=== PATIENT | male | born 2005 ===

== ENCOUNTER 2025-02-13 20:11 | Inpatient (IN) | payer OTHER, SELFPAY ==
[2025-02-13] VITALS (14 sets, daily range): BP systolic 90–127; BP diastolic 33–70; PULSE 54–122; RESP 16–20; TEMP 36.8; O2SAT 96–100; BMI 21.5
--- NOTE | 2025-02-13 20:12 | ED_ITS ---
HPI - Psych General Chief Complaint: Psychiatric Symptoms Stated Complaint: section 12, combative, restrained Time Seen by Provider: 02/13/25 20:11 History of Present Illness ED Provider: Laureano Dodson MD HPI Narrative: Alexys is brought in by EMS and [employer] police. They were sent to the house by outpatient behavioral health organization who called them concern and filing section 12 for ? Erratic or psychotic behavior. Patient was picked up at home where his mother was present. He was not violent but the officer who brought him in described him as ?blank stare?. Occasionally mumbling unintelligibly. Not cooperative but not Related Data Home Medications ?Medication ?Instructions ?Recorded ?Confirmed No Known Home Meds 02/14/25 02/14/25 Allergies Allergy/AdvReac Type Severity Reaction Status Date / Time Unable to Assess Allergy Verified 02/13/25 20:31 [facility] Social History Social History Household Members: Family Housing: House Do you presently have visiting nurse or other home services: No Unable to assess alcohol history related to: Unknown Patient Tobacco Use Status: Never used Tobacco Use of substances other than those prescribed or required for medical reasons: Unknown Currently Displaying Signs/Symptoms of Drug Intoxication Withdrawal: No Have you been hit, kicked, punched, or otherwise hurt by someone within the past year? If so, by whom?: No Do you feel safe in your current relationship?: No Current Relationship Is there a partner from a previous relationship who is making you feel unsafe now?: No Are you made to feel afraid or neglected: No Spiritual Healthcare Practices: denies Taoist Healthcare Practices: denies Cultural Healthcare Practices: denies Advance Directives: No Advance Directives Information Provided: No Do you have thoughts of harming others: None Do you have a plan to hurt others: No Plan Recently lost weight without trying: No How much weight loss: Unsure Eating poorly because of decreased appetite: No Nutrition screen score: 2 Nutrition Risks: No Nutritional Risk Poor oral hygiene: No Physical Exam 2 Vital Signs: Vital Signs: Last Vital Signs Temp 97.8 F 02/14/25 16:37 Pulse 87 02/14/25 16:37 Resp 16 02/14/25 16:37 BP 132/84 02/14/25 16:37 Pulse Ox 99 02/14/25 16:37 O2 Del Method Room Air 02/14/25 16:37 BMI result Body Mass Index 21.5 Const: Other: EXAM: Gen: Alert, awake, well appearing, well hydrated. You makes eye contact and occasionally responds appropriately to verbal stimuli with brief answers seems evasive. Sometimes laughing to himself or answering inappropriately to my questions or commands. On arrival he was not cooperating with instruction to sit back in the bed he appeared internally preoccupied . Although not physically threatening to staff his somewhat erratic behavior had us concerned Head: Atraumatic Eyes: Anicteric, Normal conjunctiva. ENT: Moist mucosa, no pallor. ? Neck: Supple. Respiratory: Breathing comfortably, No distress.Clear to auscultation bilaterally, symmetric chest expansion, No wheeze, rales, ronchi. Cardiovascular: Regular rate and rhythm. No murmurs or rub. Well perfused periphery, warm extremities. No edema. ? Abdominal: No FOCAL TENDERNESS. Soft, no objective distension. No palpable masses or obvious organomegaly. ?No guarding, no rebound tenderness or other peritoneal findings. : No flank tenderness. Neuro: Alert. Gross movement of all extremities intact. ? Psych: Calm. Uncooperative. Mumbling occasionally responding to internal stimuli laughing inappropriately. ?I started smoking ?initially says it was cigarette later nods that he has been smoking marijuana. Says ?I have been staying in my room?. We will not answer any further questioning. MSK: No grossly visible deformity. Vital signs: See flowsheet Medications Administered Generic Name Dose Route Start Last Admin Trade Name Freq PRN Reason Stop Dose Admin Lorazepam 1 mg 02/14/25 12:35 02/14/25 21:12 Lorazepam 1 Mg Tablet PO 1 mg TID SALVATORE Administration Olanzapine 5 mg 02/14/25 12:30 02/14/25 21:12 Olanzapine 5 Mg Tablet PO 5 mg TID PRN Administration agitation Discontinued Medications Generic Name Dose Route Start Last Admin Trade Name Freq PRN Reason Stop Dose Admin Midazolam HCl 4 mg 02/13/25 20:19 02/13/25 20:40 Midazolam Hcl 2 Mg/2 Ml Vial IM 02/13/25 20:20 4 mg ONCE ONE Administration Olanzapine 5 mg 02/13/25 20:19 02/13/25 20:41 Olanzapine 10 Mg Vial IM 02/13/25 20:20 5 mg ONCE ONE Administration Medical Decision Making Medical Decision Making MDM Narrative: [age] male brought on section 12 for erratic behavior questioned psychosis from outpatient mental health providers. Mother added additional history to the nursing staff, she said over the past weeks he has been having fluctuating and erratic behavior that is new for him. He was jailed recently for alleged physical assault of his sister which is unusual for him. He has been acting erratic and sometimes staying many hours in his room alone which is also unusual for him. [facility] outpatient behavioral health team called police to pick him up and bring him here on section 12 for possible acute psychosis concern for possible self-harm or harm to others. Differential Diagnosis Differential Diagnoses: The differential diagnosis associated with the presentation includes Psychosis, drug induced psychosis, adjustment disorder, mood disorder, substance use disorder, less likely encephalopathy/meningitis/encephalitis Admission/Observation Consideration of admission/observation: Escalation of care including admission/observation considered Lab Data 02/13/25 21:19 02/13/25 21:19 Labs: Lab Results 02/13/25 02/13/25 Range/Units 21:19 21:32 WBC 8.3 (4.8-10.8) X10*3/uL RBC 4.06 L (4.60-5.80) X10*6/uL Hgb 12.2 L (14.0-18.0) g/dl Hct 36.2 L (42.0-52.0) % MCV 89.2 (80.0-98.0) fL MCH 30.0 (27.0-33.0) pg MCHC 33.7 (31.0-36.0) g/dl RDW 11.3 (11.0-16.0) % Plt Count 169 (160-400) X10*3/uL MPV 9.9 (9.4-12.4) fL Immature Gran % (Auto) 0.2 (0.0-0.4) % Neut % (Auto) 77.5 H (45-73) % Lymph % (Auto) 15.8 L (20-40) % [place] % (Auto) 5.9 (2-11) % Eos % (Auto) 0.2 (0-4) % Baso % (Auto) 0.4 (0-2) % Lymph # (Auto) 1.3 (1.2-4.9) X10*3/uL [place] # (Auto) 0.5 (0.1-1.2) X10*3/uL Eos # (Auto) 0.0 (0.0-0.4) X10*3/uL Baso # (Auto) 0.0 (0.0-0.2) X10*3/uL Abs Immat Gran (auto) 0.02 (0.00-0.03) X10*3/uL Absolute Neuts (auto) 6.4 (2.0-8.3) x10*3/uL Absolute Nucleated RBC 0.000 (0.0-0.012) X10*3/uL Nucleated RBC % (auto) 0.0 (0.0-0.2) /100WBC Sodium 141 (135-145) mmol/L Potassium 3.5 (3.3-5.1) mmol/L Chloride 110 H (96-108) mmol/L Carbon Dioxide 23 (22-29) mmol/L Anion Gap 12 (12-20) BUN 9 (9-16) mg/dL Creatinine 1.07 (0.5-1.4) mg/dL Estim Creat Clear Calc 105.0 Estimated GFR > 60 Random Glucose 105 (60-115) mg/dL Calcium 8.9 (8.4-10.2) mg/dL Total Bilirubin 1.2 H (0.0-1.0) mg/dL AST 19 (5-37) U/L ALT 12 (0-40) U/L Alkaline Phosphatase 46 (39-117) U/L Total Protein 6.5 (6.5-8.0) g/dL Albumin 4.0 (3.5-5.0) g/dL Urine Color Yellow Urine Appearance Clear Urine pH 5.5 (5.0-9.0) Ur Specific [place] 1.025 (1.005-1.025) Urine Protein 30 (1+) H (Neg-Trace) mg/dL Urine Glucose (UA) Negative (Negative) mg/dL Urine Ketones Trace (Negative) mg/dL Urine Blood Moderate (2+) H (Negative) Urine Nitrite Negative (Negative) Ur Leukocyte Esterase Negative (Negative) Urine RBC 11-20 H (0-2) /HPF Urine WBC 6-10 H (0-5) /HPF Ur Squamous Epith Cells 0-2 (0-2) /HPF Urine Bacteria None Seen (None Seen) Hyaline Casts 0-2 (0-2) /LPF Granular Casts Present Salicylates < 5.0 L (15-30) mg/dL Urine Opiates Screen Not Detected (Not Detect) Ur Buprenorphine Scrn Not Detected (Not Detect) ng/mL Ur Oxycodone Screen Not Detected (Not Detect) ng/mL Urine Methadone Screen Not Detected (Not Detect) ng/mL Urine Fentanyl Screen Not Detected (Not Detect) Acetaminophen < 3 (<30) mcg/mL Ur Barbiturates Screen Not Detected (Not Detect) Ur Phencyclidine Scrn Not Detected (Not Detect) Ur Amphetamines Screen Not Detected (Not Detect) U Benzodiazepines Scrn POSITIVE H (Not Detect) Urine Cocaine Screen Not Detected (Not Detect) U Marijuana (THC) Screen POSITIVE H (Not Detect) Ethyl Alcohol 21 mg/dL Independent Historian Clinical information obtained from an independent historian. History obtained from or confirmed by: Parent and EMS Discharge Plan Discharge Clinical Impression: Disorganized behavior Patient Disposition: Admitted As Inpatient Interventions: [place]-Suicide Risk Severity Scale Last Done: 02/15/25 00:00 Discharge Date/Time: 02/14/25 13:49
[2025-02-13] MEDS: Midazolam HCl 2 MG/2 ML VIAL 4 MG IM (20:40)
[2025-02-13] MEDS: OLANZapine 10 MG VIAL 5 MG IM (20:41)
--- NOTE | 2025-02-13 20:56 | MHC.CARE ---
Assessed by [facility] in the community on a sect 12 for disorganized speech and behavior, illogical, ?inpurposeful movements.? reports that he was arrested about a month ago for assaulting his sister while in a ?psychotic state? and was in retirement for 8 days and released.?Reported Pt smoked marijuana today. [facility] to fax assessment to the CARE Team when completed.
--- NOTE | 2025-02-13 21:02 | PC.NURSE ---
Pt BIBA uncooprative, aggressive and agitated. Pt came with S12 from [facility] worker and restrained by EMS and PD. Pt required multiple staff to assist moving off EMS stretcher and onto hospital stretcher. Pt would not lay back in bed and attempted to get up and was very tense when asked to move back onto safe position on stretcher. Physician informed and pt restrained. Pt medicated per NOV. Pt uncooperative with blood draw and was attempting to pull away.
--- NOTE | 2025-02-13 21:10 | PC.NURSE ---
Pt uncooperative with blood
--- NOTE | 2025-02-13 21:10 | PC.NURSE ---
Pt uncooperative during lab draw, pulling arm away and trying to get off stretcher. RN assited holding arm while tech jossy labwork.
[2025-02-13 21:23] LABS: MANUAL DIFF FLAG NO
[2025-02-13 21:24] LABS: Basophils Percent Auto 0.4 % (0-2); Eosinophils Percent Auto 0.2 % (0-4); Hematocrit 36.2 % (42.0-52.0); Hemoglobin 12.2 g/dl (14.0-18.0); Imm Gran Abs Auto 0.02 X10*3/uL (0.00-0.03); Imm Gran Pct Auto 0.2 % (0.0-0.4); Lymphocytes Absolute Auto 1.3 X10*3/uL (1.2-4.9); Lymphocytes Percent Auto 15.8 % (20-40); Mean Corpuscular HGB Conc 33.7 g/dl (31.0-36.0); Mean Corpuscular Volume 89.2 fL (80.0-98.0); Mean Platelet Volume 9.9 fL (9.4-12.4); Monocytes Absolute Auto 0.5 X10*3/uL (0.1-1.2); Monocytes Percent Auto 5.9 % (2-11); Neutrophils Absolute Auto 6.4 x10*3/uL (2.0-8.3); Neutrophils Percent Auto 77.5 % (45-73); Platelet Count 169 X10*3/uL (160-400); Red Blood Count 4.06 X10*6/uL (4.60-5.80); Red Cell Distribution Width 11.3 % (11.0-16.0); White Blood Count 8.3 X10*3/uL (4.8-10.8)
[2025-02-13 21:39] LABS: Alanine Aminotransferase 12 U/L (0-40); Alkaline Phosphatase 46 U/L (39-117); Anion Gap 12 (12-20); Aspartate Amino Transferase 19 U/L (5-37); Bilirubin Total 1.2 mg/dL (0.0-1.0); Blood Urea Nitrogen 9 mg/dL (9-16); Calcium 8.9 mg/dL (8.4-10.2); Carbon Dioxide 23 mmol/L (22-29); Chloride 110 mmol/L (96-108); Estimated Glomerular Filt Rate > 60; Ethanol 21 mg/dL; Glucose Random 105 mg/dL (60-115); Potassium 3.5 mmol/L (3.3-5.1); Sodium 141 mmol/L (135-145); Total Protein 6.5 g/dL (6.5-8.0)
[2025-02-13 21:40] LABS: Acetaminophen LAB < 3 mcg/mL (<30); Salicylate < 5.0 mg/dL (15-30)
[2025-02-13 21:42] LABS: Appearance Urine Clear; Color Urine Yellow; Glucose Urine UA Negative (Negative); Leukocyte Esterase Urine Negative (Negative); Nitrite Urine Negative (Negative); PH 5.5 (5.0-9.0); Specific Gravity - Urine 1.025 (1.005-1.025); UMIC TRIGGER UA YES; Urine Blood Moderate (2+) (Negative); Urine Ketones Trace mg/dL (Negative); Urine Protein 30 (1+) mg/dL (Neg-Trace)
--- NOTE | 2025-02-13 21:43 | PC.NURSE ---
Physician ordered st cath for urine sample. Pt uncooperative. Multiple staff including security to assist keeping pt still while obtaining urine sample.
[2025-02-13 21:53] LABS: Amphetamine Screen Urine Not Detected (Not Detect); Barbiturates, Urine Not Detected (Not Detect); Benzodiazepines Screen Urine POSITIVE (Not Detect); Buprenorphine Scr Not Detected (Not Detect); Cannabinoid Screen Urine POSITIVE (Not Detect); Cocaine Screen Urine Not Detected (Not Detect); Fentanyl, urine Not Detected (Not Detect); Methadone Screen, Urine Not Detected (Not Detect); Opiate Screen Urine Not Detected (Not Detect); Oxycodone Screen Urine Not Detected (Not Detect); Phencyclidine Screen Urine Not Detected (Not Detect)
[2025-02-13 21:55] LABS: Bacteria Urine None Seen (None Seen); Granular Casts Urine Present; Hyaline Casts Urine 0-2 /LPF (0-2); Squamous Epithelial Cell Urine 0-2 /HPF (0-2)
--- NOTE | 2025-02-13 22:55 | PC.NURSE ---
Pt more cooperative. Removed left lower extremity restraint for trial. Explained to patient and he verbalized understanding.
--- NOTE | 2025-02-13 23:10 | PC.NURSE ---
Removed right lower extremity restraint. Pt cooperative at this time. Pt educated on restraint use and removal.
--- NOTE | 2025-02-13 23:25 | PC.NURSE ---
Removed left wrist restraint. Pt verbalizes understanding of restraint use.
--- NOTE | 2025-02-13 23:40 | PC.NURSE ---
Removed right wrist restraint. Patient calm and cooperative at this time. Pt given beverage per his request. Patient verbalized understanding of monitoring vital signs.
[2025-02-14 00:18] VITALS: BP 127/56; PULSE 65; RESP 16; O2SAT 100
--- NOTE | 2025-02-14 07:11 | PC.NURSE ---
belongings shelf [facility]. list complete.
--- NOTE | 2025-02-14 08:07 | ECG_ITS ---
Test Reason : med clearance Blood Pressure : */* mmHG Vent. Rate : 81 BPM Atrial Rate : 81 BPM P-R Int : 178 ms QRS Dur : 84 ms QT Int : 348 ms P-R-T Axes : 76 69 68 degrees QTcB Int : 404 ms Normal sinus rhythm Normal ECG No previous ECGs available Referred By: Laureano Dodson Electronically Signed By: ZAFAR KRAUSE
[2025-02-14 09:55] VITALS: PULSE 64; RESP 18; TEMP 36.6; O2SAT 96
[2025-02-14] MEDS: LORazepam 1 MG TABLET PO ×3 (13:20→21:12)
--- NOTE | 2025-02-14 13:35 | PC.NURSE ---
verbal nurse to nurse given to terra RN on M5
--- NOTE | 2025-02-14 15:15 | PC.ADMIT ---
Pt is a 20 year old Black male who arrived to @ 14:00 for the treatment of psychosis/erratic behavior at home.? Pt declined to meet with Dr Brown and legal status has not been established yet possibly 12b. Pt was initially brought to the ED via ambulance after mom was concerned that pt was acting bizarre and called crisis for a in-home assessment. Mother stated pt was in engaging in odd, purposeless behaviors such as throwing out food that had just been purchased. Apparently pt was arrested a couple of weeks ago for assaulting one of his sisters and spent some days in jailed before he was bailed by his mother. In home crisis team found pt with a woman?s hair cap on and appearing vague and disconnected as well as mumbling things that couldn?t be understood.? When police/ambulance was called pt refused to engage with them and kept repeating ?the yanely isn?t red, the yanely isn?t red? and ?number 5, number 5?. Pt and his family (mother and 2 sisters) came to the from [facility] 5 years ago. Mom remarried and pt has not been getting along with stepfather. 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 While in the ED pt got restrained by police and EMS. During the admission assessment, pt is calm and overall cooperative. He appears to be internally preoccupied with poor concentration. Pt denied all psych symptoms. He is disorganized and initially while in [facility] threw all of his roommates clothes in the trash.?
[2025-02-14] MEDS: OLANZapine 5 MG TABLET PO ×2 (15:47→21:12)
[2025-02-14 16:37] VITALS: BP 132/84; PULSE 87; RESP 16; TEMP 36.6; O2SAT 99
[2025-02-14 18:28] VITALS: BMI 21.7
[2025-02-15 08:00] VITALS: BP 133/61; PULSE 67; TEMP 36.4; O2SAT 100
[2025-02-15] MEDS: LORazepam 1 MG TABLET PO ×3 (08:34→20:42)
[2025-02-15 09:03] LABS: Ammonia 32 umol/L (13-55)
[2025-02-15 09:34] LABS: Estimated Average Glucose 88 mg/dL; Hemoglobin A1C 102.0434 umol/L; Hemoglobin A1c % 4.7 % (<6.0); Total Hemoglobin (HGBA1C) 3715.3268 umol/L
[2025-02-15 09:39] LABS: Alanine Aminotransferase 19 U/L (0-40); Albumin Level 4.3 g/dL (3.5-5.0); Alkaline Phosphatase 47 U/L (39-117); Anion Gap 9 (12-20); Aspartate Amino Transferase 28 U/L (5-37); Bilirubin Total 1.3 mg/dL (0.0-1.0); Blood Urea Nitrogen 10 mg/dL (9-16); Calcium 9.5 mg/dL (8.4-10.2); Carbon Dioxide 31 mmol/L (22-29); Chloride 108 mmol/L (96-108); Cholesterol 131 mg/dL (<200); Creatinine Clr Calc Pharmacy 98.7; Estimated Glomerular Filt Rate > 60; Glucose Random 84 mg/dL (60-115); HDL Cholesterol 42 mg/dL (>40); LDL Cholesterol Calculated 78 mg/dL (<100); Potassium 3.9 mmol/L (3.3-5.1); Sodium 144 mmol/L (135-145); Total Protein 7.1 g/dL (6.5-8.0); Triglycerides 57 mg/dL (<150)
--- NOTE | 2025-02-15 12:08 | HO.PSYADMNOT ---
HPI Date of Service: 02/15/25 Chief Complaint: Disorganized Sources of Information: patient interviewed, chart reviewed and crisis/core team assessment reviewed HPI Subjective Notes: [place] Warning and Conditional Voluntary Narrative: Pt seen on 02/14/25 Patient is a 20-year-old male from [facility], living in [facility] for about [facility] years who presents with disorganized aggressive behaviors in the community. Patient is a poor historian does not want to talk much and does not answer questions asked. He denies psychiatric symptoms, denies AVH. However he is amenable to taking medication. Collateral provided following information: Patient's mother stated pt was in engaging in odd, purposeless behaviors such as throwing out food that had just been purchased. Apparently pt was arrested a couple of weeks ago for assaulting one of his sisters and spent some days in jailed before he was bailed by his mother. In home crisis team found pt with a woman?s hair cap on and appearing vague and disconnected as well as mumbling things that couldn?t be understood.?When police/ambulance was called pt refused to engage with them and kept repeating ?the yanely isn?t red, the yanely isn?t red? and ?number 5, number 5?. 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 During the admission assessment, pt is calm and overall cooperative. He appears to be internally preoccupied with poor concentration. Pt denied all psych symptoms. He is disorganized and initially while in [facility] threw all of his roommates clothes in the trash.? Past Psychiatric History: No past psychiatric hospitalizations No history of medication Medical Evaluation Reviewed: Yes [facility] Medical History (Updated 02/16/25 @ 18:28 by Douglas Paul MD) Psychosis Family History: None Social History: Born in [facility]; moved here to live with his mother about 5 years ago; was enrolled in nursing school until became disorganized Substance History: Excessive cannabis daily Trauma History: Unknown Diagnostics Vital Signs (24Hr): Vital Signs - 24 hr 02/14/25 16:37 Temperature 97.8 F Pulse Rate 87 Respiratory Rate 16 Blood Pressure 132/84 Pulse Oximetry 99 Oxygen Delivery Method Room Air BMI result Body Mass Index 21.7 Labs 02/13/25 21:19 02/15/25 08:28 Labs: Laboratory Results - last 48 hr 02/13/25 02/13/25 02/15/25 21:19 21:32 08:28 WBC 8.3 RBC 4.06 L Hgb 12.2 L Hct 36.2 L MCV 89.2 MCH 30.0 MCHC 33.7 RDW 11.3 Plt Count 169 MPV 9.9 Immature Gran % (Auto) 0.2 Neut % (Auto) 77.5 H Lymph % (Auto) 15.8 L [place] % (Auto) 5.9 Eos % (Auto) 0.2 Baso % (Auto) 0.4 Lymph # (Auto) 1.3 [place] # (Auto) 0.5 Eos # (Auto) 0.0 Baso # (Auto) 0.0 Abs Immat Gran (auto) 0.02 Absolute Neuts (auto) 6.4 Absolute Nucleated RBC 0.000 Nucleated RBC % (auto) 0.0 Sodium 141 144 Potassium 3.5 3.9 Chloride 110 H 108 Carbon Dioxide 23 31 H Anion Gap 12 9 L BUN 9 10 Creatinine 1.07 1.15 Estim Creat Clear Calc 105.0 98.7 Estimated GFR > 60 > 60 Random Glucose 105 84 Estimat Average Glucose 88 Hemoglobin A1c % 4.7 Calcium 8.9 9.5 D Total Bilirubin 1.2 H 1.3 H AST 19 28 ALT 12 19 Alkaline Phosphatase 46 47 Ammonia 32 Total Protein 6.5 7.1 Albumin 4.0 4.3 Triglycerides 57 Cholesterol 131 LDL Cholesterol, Calc 78 HDL Cholesterol 42 Urine Color Yellow Urine Appearance Clear Urine pH 5.5 Ur Specific [place] 1.025 Urine Protein 30 (1+) H Urine Glucose (UA) Negative Urine Ketones Trace Urine Blood Moderate (2+) H Urine Nitrite Negative Ur Leukocyte Esterase Negative Urine RBC 11-20 H Urine WBC 6-10 H Ur Squamous Epith Cells 0-2 Urine Bacteria None Seen Hyaline Casts 0-2 Granular Casts Present Salicylates < 5.0 L Urine Opiates Screen Not Detected Ur Buprenorphine Scrn Not Detected Ur Oxycodone Screen Not Detected Urine Methadone Screen Not Detected Urine Fentanyl Screen Not Detected Acetaminophen < 3 Ur Barbiturates Screen Not Detected Ur Phencyclidine Scrn Not Detected Ur Amphetamines Screen Not Detected U Benzodiazepines Scrn POSITIVE H Urine Cocaine Screen Not Detected U Marijuana (THC) Screen POSITIVE H Ethyl Alcohol 21 Meds/Allergies Meds Home Medications ?Medication ?Instructions ?Recorded ?Confirmed ?Type No Known Home Meds 02/14/25 02/14/25 History Allergies Allergies Allergy/AdvReac Type Severity Reaction Status Date / Time Unable to Assess Allergy Verified 02/13/25 20:31 Mental Status Exam Mental Status Exam Narrative: Pt is alert and oriented; behavior is guarded, disorganized, wandering, not answering all questions directly; however calm; patient is not in distress; dressed in casual attire with unkempt hair but adequate hygiene; mood is described as good though affect congruent, blunted; eye contact appropriate; Speech is latent and sparse; no psychomotor agitation/retardation present; thought process can be goal directed but with significant thought blocking; Thought content is not disclose; no paranoid ideations expressed; denies any SI/HI. Would not answer regarding AVH; a peers internally preoccupied. 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 Patient is a poor historian does not want to talk much and does not answer questions asked. He denies psychiatric symptoms, denies AVH. However he is amenable to taking medication. Collateral provided following information: Patient's mother stated pt was in engaging in odd, purposeless behaviors such as throwing out food that had just been purchased. Apparently pt was arrested a couple of weeks ago for assaulting one of his sisters and spent some days in jailed before he was bailed by his mother. In home crisis team found pt with a woman?s hair cap on and appearing vague and disconnected as well as mumbling things that couldn?t be understood.?When police/ambulance was called pt refused to engage with them and kept repeating ?the yanely isn?t red, the yanely isn?t red? and ?number 5, number 5?. 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 During the admission assessment, pt is calm and overall cooperative. He appears to be internally preoccupied with poor concentration. Pt denied all psych symptoms. He is disorganized and initially while in [facility] threw all of his roommates clothes in the trash.? Formulation/clinical reasoning: Patient disorganized, guarded. Collateral reports catatonic like symptoms so patient started on Ativan 1 mg t.i.d.; will leave it here for now and monitor for catatonia. Will pursue collateral plan: cv q15 ativan 1mg tid Patient educated on: diagnosis and medication risk/benefits Informed Consent: understands, does not understand and further education needed Reason for continued inpatient stay Substantial Risk for: inability to function Statement Statement: I have reviewed the history and physical and performed a pertinent examination on my patient. No changes have occurred unless specified. If the History and Physical was not performed prior to admission, the Hospitalist's service will be consulted for completing the admission physical. Time Spent With Patient Time: Total time managing care of this patient today ____ minutes.
[2025-02-15] MEDS: risperiDONE 1 MG TABLET PO ×2 (15:07→20:43)
[2025-02-15 20:00] VITALS: BP 125/60; PULSE 100; TEMP 36.3; O2SAT 100
[2025-02-15] MEDS: OLANZapine 5 MG TABLET PO (20:42)
[2025-02-15] MEDS: traZODone HCL 50 MG TABLET PO (20:43)
[2025-02-16 08:00] VITALS: RESP 16
[2025-02-16] MEDS: LORazepam 1 MG TABLET PO ×3 (08:56→21:36)
[2025-02-16] MEDS: risperiDONE 1 MG TABLET PO ×3 (08:56→21:37)
--- NOTE | 2025-02-16 13:38 | P.PNPSI_ITS ---
Subjective Subjective Date of Service: 02/16/25 Reason For Visit: Disorganized Interim History: met with patient; discussed with team pt remains guarded; his only engagement was regarding when he could leave and wanting his mother to come visit. Again would not answer about AVH. Wandering the milieu, not talking much. Risperdal was prescribed which patient is taking. Called Mother, Syd Hussein: Mom says pt moved here 5 years ago; nice, friendly, working About 8 months ago, he Stated isolating himself, in room all day, looking depressed, getting fired from jobs, getting angry out of the blue...Getting into arguments w/ sisters; started smoking cannabis all the time. Quit school. A few weeks ago, very angry, verbally aggressive, said his sister was stalking him...some altercation with his sister and 911 was called and he was taken to [facility] (resisting arrest) and mom bailed him out 1 week ago. When he got back, on Friday he was calm, friendly and organized...but later that day smoked cannabis and ended up back disorganized. Sometimes standing in one place for a long time, not moving...confused...on Friday he took all food out of fridge and threw it away, cut wires of his playstation, putting vacuum in trash, taking all cups out of cabinet and putting in trash bag, crying non-stop... mom has visited and says he seems confused... mom wonders if this is due to Cannabis and would like to see if he clears up off medication... No hx of psychotic symptoms in family Mental Status Exam Mental Status Exam Narrative: Pt is alert and oriented; behavior is guarded, disorganized, wandering, not answering all questions directly; however calm; patient is not in distress; dressed in casual attire with unkempt hair but adequate hygiene; mood is described as good though affect congruent, blunted; eye contact appropriate; Speech is latent and sparse; no psychomotor agitation/retardation present; thought process can be goal directed but with significant thought blocking; Thought content is not disclose; no paranoid ideations expressed; denies any SI/HI. Would not answer regarding AVH; a peers internally preoccupied. Patients insight and judgment impaired Diagnostics Vital Signs (24Hr): Vital Signs - 24 hr 06/03/25 20:00 02/16/25 08:00 Temperature 97.4 F Pulse Rate 100 Respiratory Rate 16 Blood Pressure 125/60 Pulse Oximetry 100 Oxygen Delivery Method Room Air BMI result Body Mass Index 21.7 Labs 02/13/25 21:19 02/15/25 08:28 Labs: Laboratory Results - last 48 hr 02/15/25 08:28 Sodium 144 Potassium 3.9 Chloride 108 Carbon Dioxide 31 H Anion Gap 9 L BUN 10 Creatinine 1.15 Estim Creat Clear Calc 98.7 Estimated GFR > 60 Random Glucose 84 Estimat Average Glucose 88 Hemoglobin A1c % 4.7 Calcium 9.5 D Total Bilirubin 1.3 H AST 28 ALT 19 Alkaline Phosphatase 47 Ammonia 32 Total Protein 7.1 Albumin 4.3 Triglycerides 57 Cholesterol 131 LDL Cholesterol, Calc 78 HDL Cholesterol 42 Medications Medications Current Medications Acetaminophen (Acetaminophen 325 Mg Tablet) 650 mg PO Q6H PRN PRN Reason: Headache/Pain, Scale 1-10 Al Hydroxide/Mg Hydroxide (Magnesium Hydrox/Alum Hydrox 30 Ml Oral.Susp) 30 ml PO Q6H PRN PRN Reason: Heartburn/Nausea Hydroxyzine HCl (Hydroxyzine Hcl 25 Mg Tablet) 25 mg PO Q6H PRN PRN Reason: mild anxiety Lorazepam (Lorazepam 1 Mg Tablet) 1 mg PO TID SALVATORE Last Admin: 02/16/25 08:56 Dose: 1 mg Magnesium Hydroxide (Milk Of Magnesia 30 Ml Oral.Susp) 30 ml PO DAILY PRN PRN Reason: Constipation Nicotine (Nicotine 21 Mg Patch.Td24) 21 mg TRANSDERMA DAILY PRN PRN Reason: smoking cessation Nicotine Polacrilex (Nicotine Polacrilex 2 Mg Gum) 4 mg BUCCAL Q2H PRN PRN Reason: Nicotine Cravings Olanzapine (Olanzapine 5 Mg Tablet) 5 mg PO TID PRN PRN Reason: agitation Last Admin: 02/15/25 20:42 Dose: 5 mg Risperidone (Risperidone 1 Mg Tablet) 1 mg PO TID SALVATORE Last Admin: 02/16/25 08:56 Dose: 1 mg Trazodone HCl (Trazodone Hcl 50 Mg Tablet) 50 mg PO BEDTIME MRX1 PRN PRN Reason: Insomnia Last Admin: 02/15/25 20:43 Dose: 50 mg Allergies Allergies Allergy/AdvReac Type Severity Reaction Status Date / Time Unable to Assess Allergy Verified 02/13/25 20:31 Assessment & Plan Assessment & Plan (1) Psychosis: Status: Acute Code(s): F29 - Unspecified psychosis not due to a substance or known physiological condition Plan Patient is a 20-year-old male from [facility], living in [facility] for about 5 years who presents with disorganized aggressive behaviors in the community. Patient is a poor historian does not want to talk much and does not answer questions asked. He denies psychiatric symptoms, denies AVH. However he is amenable to taking medication. Collateral provided following information: Patient's mother stated pt was in engaging in odd, purposeless behaviors such as throwing out food that had just been purchased. Apparently pt was arrested a couple of weeks ago for assaulting one of his sisters and spent some days in jailed before he was bailed by his mother. In home crisis team found pt with a woman?s hair cap on and appearing vague and disconnected as well as mumbling things that couldn?t be understood.?When police/ambulance was called pt refused to engage with them and kept repeating ?the yanely isn?t red, the yanely isn?t red? and ?number 5, number 5?. 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 During the admission assessment, pt is calm and overall cooperative. He appears to be internally preoccupied with poor concentration. Pt denied all psych symptoms. He is disorganized and initially while in [facility] threw all of his roommates clothes in the trash.? Formulation/clinical reasoning: Patient disorganized, guarded. Collateral reports catatonic like symptoms so patient started on Ativan 1 mg t.i.d.; will leave it here for now and monitor for catatonia. Will pursue collateral Hospital course: 02/16 pt remains guarded; his only engagement was regarding when he could leave and wanting his mother to come visit. Again would not answer about AVH. Wandering the milieu, not talking much. Risperdal was prescribed which patient is taking. Patient asked for internal communications writer to call his mother. -patient appeared without catatonic symptoms; disorganized enough that provoked peer so started on Risperdal -later in the day, pt seemed to clear up...was more talkative, cooperative...said he was depressed because he missed his father (regarding his mothers reports of depression for months); accepted that his mother wants him to stay through the weekend. To nursing, was much more organized also... Collateral: Called Mother, Syd Hussein: Mom says pt moved here 5 years ago; nice, friendly, working About 8 months ago, he Stated isolating himself, in room all day, looking depressed, getting fired from jobs, getting angry out of the blue...Getting into arguments w/ sisters; started smoking cannabis all the time. Quit school. A few weeks ago, very angry, verbally aggressive, said his sister was stalking him...some altercation with his sister and 911 was called and he was taken to [facility] for [facility] (resisting arrest) and mom bailed him out 1 week ago. When he got back, on Friday he was calm, friendly and organized...but later that day smoked cannabis and ended up back disorganized. Sometimes standing in one place for a long time, not moving...confused...on Friday he took all food out of fridge and threw it away, cut wires of his playstation, putting vacuum in trash, taking all cups out of cabinet and putting in trash bag, crying non-stop... mom has visited and says he seems confused... mom wonders if this is due to Cannabis and would like to see if he clears up off medication... No hx of psychotic symptoms in family plan: cv q15 ativan 1mg tid Risperdal 1 mg t.i.d. Patient educated on: diagnosis and medication risk/benefits Informed Consent: understands, does not understand and further education needed Reason for continued inpatient stay Substantial Risk for: rapid decompensation Time Spent With Patient Time: Total time managing care of this patient today ____ minutes.
[2025-02-16 20:00] VITALS: BP 128/70; PULSE 123; RESP 16; TEMP 36.4; O2SAT 97
[2025-02-16] MEDS: OLANZapine 5 MG TABLET PO (21:36)
[2025-02-16] MEDS: traZODone HCL 50 MG TABLET PO (21:36)
[2025-02-17 07:00] VITALS: BMI 22.1
[2025-02-17] MEDS: LORazepam 1 MG TABLET PO (08:02)
[2025-02-17] MEDS: risperiDONE 1 MG TABLET PO (08:02)
[2025-02-17 08:17] VITALS: BP 126/59; PULSE 95; TEMP 36.6; O2SAT 98
--- NOTE | 2025-02-17 09:48 | P.PNPSI_ITS ---
Subjective Subjective Date of Service: 02/17/25 Reason For Visit: Disorganized Interim History: met with patient; discussed with team pt doing much better today; organized in speech and behavior, friendly and engaged. does not remember specific psychotic symptoms or behaviors but feels better since admission saying he was confused when he first arrived and now feels cleared minded. Seems to accept dx of psychotic illness and agrees that medications have helped him recover. Pt's mother present who agrees mostly back to baseline. Agrees to remain few more days for continued stability and to taper off ativan. Reviewed risks/side-effects of risperdal and pt agrees to continue taking. Mental Status Exam Mental Status Exam Narrative: Pt is alert and oriented; behavior is cooperative, friendly and calm; patient is not in distress; dressed in casual attire with unkempt hair but adequate hygiene; mood is described as good and affect congruent; eye contact appropriate; Speech is normal rate, volume and prosody and not pressured; no psychomotor agitation/retardation present; thought process is organized and goal directed; Thought content is on tx; otherwise pertinent to relevant topics and without any delusional content, paranoid ideations or grandiosity; denies any SI/HI. Denies AVH and there is no evidence of perceptual disturbance. Patients insight and judgment appear intact. Diagnostics Vital Signs (24Hr): Vital Signs - 24 hr 02/16/25 20:00 02/17/25 08:17 Temperature 97.6 F 98 F Pulse Rate 123 H 95 Respiratory Rate 16 Blood Pressure 128/70 126/59 L Pulse Oximetry 97 98 Oxygen Delivery Method Room Air Room Air BMI result Body Mass Index 21.7 Labs 02/13/25 21:19 02/15/25 08:28 Medications Medications Current Medications Acetaminophen (Acetaminophen 325 Mg Tablet) 650 mg PO Q6H PRN PRN Reason: Headache/Pain, Scale 1-10 Al Hydroxide/Mg Hydroxide (Magnesium Hydrox/Alum Hydrox 30 Ml Oral.Susp) 30 ml PO Q6H PRN PRN Reason: Heartburn/Nausea Hydroxyzine HCl (Hydroxyzine Hcl 25 Mg Tablet) 25 mg PO Q6H PRN PRN Reason: mild anxiety Lorazepam (Lorazepam 0.5 Mg Tablet) 0.5 mg PO TID SALVATORE Magnesium Hydroxide (Milk Of Magnesia 30 Ml Oral.Susp) 30 ml PO DAILY PRN PRN Reason: Constipation Nicotine (Nicotine 21 Mg Patch.Td24) 21 mg TRANSDERMA DAILY PRN PRN Reason: smoking cessation Nicotine Polacrilex (Nicotine Polacrilex 2 Mg Gum) 4 mg BUCCAL Q2H PRN PRN Reason: Nicotine Cravings Risperidone (Risperidone 3 Mg Tablet) 3 mg PO BEDTIME SALVATORE Trazodone HCl (Trazodone Hcl 50 Mg Tablet) 50 mg PO BEDTIME MRX1 PRN PRN Reason: Insomnia Last Admin: 02/16/25 21:36 Dose: 50 mg Allergies Allergies Allergy/AdvReac Type Severity Reaction Status Date / Time Unable to Assess Allergy Verified 02/13/25 20:31 Assessment & Plan Assessment & Plan (1) Schizophrenia: Status: Acute Code(s): F20.9 - Schizophrenia, unspecified (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 Patient is a poor historian does not want to talk much and does not answer questions asked. He denies psychiatric symptoms, denies AVH. However he is amenable to taking medication. Collateral provided following information: Patient's mother stated pt was in engaging in odd, purposeless behaviors such as throwing out food that had just been purchased. Apparently pt was arrested a couple of weeks ago for assaulting one of his sisters and spent some days in jailed before he was bailed by his mother. In home crisis team found pt with a woman?s hair cap on and appearing vague and disconnected as well as mumbling things that couldn?t be understood.?When police/ambulance was called pt refused to engage with them and kept repeating ?the yanely isn?t red, the yanely isn?t red? and ?number 5, number 5?. 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 During the admission assessment, pt is calm and overall cooperative. He appears to be internally preoccupied with poor concentration. Pt denied all psych symptoms. He is disorganized and initially while in [facility] threw all of his roommates clothes in the trash.? Formulation/clinical reasoning: Patient disorganized, guarded. Collateral reports catatonic like symptoms so patient started on Ativan 1 mg t.i.d.; will leave it here for now and monitor for catatonia. Will pursue collateral Hospital course: 02/16 pt remains guarded; his only engagement was regarding when he could leave and wanting his mother to come visit. Again would not answer about AVH. Wandering the milieu, not talking much. Risperdal was prescribed which patient is taking. Patient asked for fiction and nonfiction writer prose to call his mother. -patient appeared without catatonic symptoms; disorganized enough that provoked peer so started on Risperdal -later in the day, pt seemed to clear up...was more talkative, cooperative...said he was depressed because he missed his father (regarding his mothers reports of depression for months); accepted that his mother wants him to stay through the weekend. To nursing, was much more organized also... -no catatonic symptoms Collateral: Called Mother, Syd Hussein: Mom says pt moved here 5 years ago; nice, friendly, working About 8 months ago, he Stated isolating himself, in room all day, looking depressed, getting fired from jobs, getting angry out of the blue...Getting into arguments w/ sisters; started smoking cannabis all the time. Quit school. A few weeks ago, very angry, verbally aggressive, said his sister was stalking him...some altercation with his sister and 911 was called and he was taken to [facility] for [facility] (resisting arrest) and mom bailed him out 1 week ago. When he got back, on Friday he was calm, friendly and organized...but later that day smoked cannabis and ended up back disorganized. Sometimes standing in one place for a long time, not moving...confused...on Friday he took all food out of fridge and threw it away, cut wires of his playstation, putting vacuum in trash, taking all cups out of cabinet and putting in trash bag, crying non-stop... mom has visited and says he seems confused... mom wonders if this is due to Cannabis and would like to see if he clears up off medication... No hx of psychotic symptoms in family 02/17 pt doing much better today; organized in speech and behavior, friendly and engaged. does not remember specific psychotic symptoms or behaviors but feels better since admission saying he was confused when he first arrived and now feels cleared minded. Seems to accept dx of psychotic illness and agrees that medications have helped him recover. Pt's mother present who agrees mostly back to baseline. Agrees to remain few more days for continued stability and to taper off ativan. Reviewed risks/side-effects of risperdal and pt agrees to continue taking. -discussed cannabis and fiction and nonfiction writer prose advised to no longer use as will exacerbate symptoms plan: cv q15 ativan 0.5mg tid (will taper and dc) Risperdal 3mg qhs Patient educated on: diagnosis, medication risk/benefits and substance abuse Informed Consent: understands Reason for continued inpatient stay Substantial Risk for: stable for discharge Time Spent With Patient Time: Total time managing care of this patient today ____ minutes.
[2025-02-17] MEDS: LORazepam 0.5 MG TABLET PO ×2 (16:42→21:05)
[2025-02-17 20:00] VITALS: BP 122/58; PULSE 82; RESP 16; TEMP 37; O2SAT 99
[2025-02-17] MEDS: risperiDONE 3 MG TABLET PO (21:05)
[2025-02-18] MEDS: LORazepam 0.5 MG TABLET PO ×2 (09:10→22:17)
--- NOTE | 2025-02-18 17:51 | P.PNPSI_ITS ---
Subjective Subjective Date of Service: 02/18/25 Reason For Visit: Disorganized Interim History: met with patient; discussed with team remains stable; no psychotic symptoms and feels ready to go home. Good mood and future oriented. Mental Status Exam Mental Status Exam Narrative: Pt is alert and oriented; behavior is cooperative, friendly and calm; patient is not in distress; dressed in casual attire with unkempt hair but adequate hygiene; mood is described as good and affect congruent; eye contact appropriate; Speech is normal rate, volume and prosody and not pressured; no psychomotor agitation/retardation present; thought process is organized and goal directed; Thought content is on tx; otherwise pertinent to relevant topics and without any delusional content, paranoid ideations or grandiosity; denies any SI/HI. Denies AVH and there is no evidence of perceptual disturbance. Patients insight and judgment appear intact. Diagnostics Vital Signs (24Hr): Vital Signs - 24 hr 02/17/25 20:00 Temperature 98.6 F Pulse Rate 82 Respiratory Rate 16 Blood Pressure 122/58 L Pulse Oximetry 99 Oxygen Delivery Method Room Air BMI result Body Mass Index 22.1 Labs 02/13/25 21:19 02/15/25 08:28 Medications Medications Current Medications Acetaminophen (Acetaminophen 325 Mg Tablet) 650 mg PO Q6H PRN PRN Reason: Headache/Pain, Scale 1-10 Al Hydroxide/Mg Hydroxide (Magnesium Hydrox/Alum Hydrox 30 Ml Oral.Susp) 30 ml PO Q6H PRN PRN Reason: Heartburn/Nausea Hydroxyzine HCl (Hydroxyzine Hcl 25 Mg Tablet) 25 mg PO Q6H PRN PRN Reason: mild anxiety Lorazepam (Lorazepam 0.5 Mg Tablet) 0.5 mg PO BID [facility] Last Admin: 02/18/25 09:10 Dose: 0.5 mg Magnesium Hydroxide (Milk Of Magnesia 30 Ml Oral.Susp) 30 ml PO DAILY PRN PRN Reason: Constipation Nicotine (Nicotine 21 Mg Patch.Td24) 21 mg TRANSDERMA DAILY PRN PRN Reason: smoking cessation Nicotine Polacrilex (Nicotine Polacrilex 2 Mg Gum) 4 mg BUCCAL Q2H PRN PRN Reason: Nicotine Cravings Risperidone (Risperidone 3 Mg Tablet) 3 mg PO BEDTIME [facility] Last Admin: 02/17/25 21:05 Dose: 3 mg Trazodone HCl (Trazodone Hcl 50 Mg Tablet) 50 mg PO BEDTIME X1 PRN PRN Reason: Insomnia Last Admin: 02/16/25 21:36 Dose: 50 mg Allergies Allergies Allergy/AdvReac Type Severity Reaction Status Date / Time Unable to Assess Allergy Verified 02/13/25 20:31 Assessment & Plan Assessment & Plan (1) Schizophrenia: Status: Acute Code(s): F20.9 - Schizophrenia, unspecified (2) 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 Patient is a poor historian does not want to talk much and does not answer questions asked. He denies psychiatric symptoms, denies AVH. However he is amenable to taking medication. Collateral provided following information: Patient's mother stated pt was in engaging in odd, purposeless behaviors such as throwing out food that had just been purchased. Apparently pt was arrested a couple of weeks ago for assaulting one of his sisters and spent some days in jailed before he was bailed by his mother. In home crisis team found pt with a woman?s hair cap on and appearing vague and disconnected as well as mumbling things that couldn?t be understood.?When police/ambulance was called pt refused to engage with them and kept repeating ?the yanely isn?t red, the yanely isn?t red? and ?number 5, number 5?. 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 During the admission assessment, pt is calm and overall cooperative. He appears to be internally preoccupied with poor concentration. Pt denied all psych symptoms. He is disorganized and initially while in [facility] threw all of his roommates clothes in the trash.? Formulation/clinical reasoning: Patient disorganized, guarded. Collateral reports catatonic like symptoms so patient started on Ativan 1 mg t.i.d.; will leave it here for now and monitor for catatonia. Will pursue collateral Hospital course: 02/16 pt remains guarded; his only engagement was regarding when he could leave and wanting his mother to come visit. Again would not answer about AVH. Wandering the milieu, not talking much. Risperdal was prescribed which patient is taking. Patient asked for underwriter solicitation director to call his mother. -patient appeared without catatonic symptoms; disorganized enough that provoked peer so started on Risperdal -later in the day, pt seemed to clear up...was more talkative, cooperative...said he was depressed because he missed his father (regarding his mothers reports of depression for months); accepted that his mother wants him to stay through the weekend. To nursing, was much more organized also... -no catatonic symptoms Collateral: Called Mother, Syd Hussein: Mom says pt moved here 5 years ago; nice, friendly, working About 8 months ago, he Stated isolating himself, in room all day, looking depressed, getting fired from jobs, getting angry out of the blue...Getting into arguments w/ sisters; started smoking cannabis all the time. Quit school. A few weeks ago, very angry, verbally aggressive, said his sister was stalking him...some altercation with his sister and 911 was called and he was taken to [facility] for 10 days (resisting arrest) and mom bailed him out 1 week ago. When he got back, on Friday he was calm, friendly and organized...but later that day smoked cannabis and ended up back disorganized. Sometimes standing in one place for a long time, not moving...confused...on Friday he took all food out of fridge and threw it away, cut wires of his playstation, putting vacuum in trash, taking all cups out of cabinet and putting in trash bag, crying non-stop... mom has visited and says he seems confused... mom wonders if this is due to Cannabis and would like to see if he clears up off medication... No hx of psychotic symptoms in family 6/5 pt doing much better today; organized in speech and behavior, friendly and engaged. does not remember specific psychotic symptoms or behaviors but feels better since admission saying he was confused when he first arrived and now feels cleared minded. Seems to accept dx of psychotic illness and agrees that medications have helped him recover. Pt's mother present who agrees mostly back to baseline. Agrees to remain few more days for continued stability and to taper off ativan. Reviewed risks/side-effects of risperdal and pt agrees to continue taking. -discussed cannabis and underwriter solicitation director advised to no longer use as will exacerbate symptoms pt remains stable; no psychotic symptoms and back to baseline. Pt not in imminent risk of harm to self/others and appropriate to return to community for tx plan: cv q15 ativan 0.5mg tid (will taper and dc) Risperdal 3mg qhs Patient educated on: diagnosis Informed Consent: understands Reason for continued inpatient stay Substantial Risk for: stable for discharge Time Spent With Patient Time: Total time managing care of this patient today ____ minutes.
--- NOTE | 2025-02-18 17:51 | P.DS_ITS ---
DS: Providers Provider Date of Service: 02/19/25 Date of admission: 02/14/25 12:30 Date of discharge: 02/19/25 Primary care physician: Unknown Physician Attending physician on admission: Douglas Paul Attending physician on discharge: Douglas Paul DS: Diagnosis Discharge Diagnosis (1) Schizophrenia: Status: Acute (2) Catatonia: Status: Resolved DS: Medications Discharge Medications Home Medications: Previous Rx's ?Medication ?Instructions ?Recorded risperidone 3 mg tablet 3 mg PO BEDTIME 30 days #30 tabs 02/18/25 trazodone 50 mg tablet 50 mg PO BEDTIME PRN Insomnia 30 02/18/25 days #30 tabs Mental Status Exam Mental Status Exam Narrative: Pt is alert and oriented; behavior is cooperative, friendly and calm; patient is not in distress; dressed in casual attire with adequate hygiene and grooming; mood is described as good and affect congruent; eye contact appropriate; Speech is normal rate, volume and prosody and not pressured; no psychomotor agitation/retardation present; thought process is organized and goal directed; Thought content is on tx; otherwise pertinent to relevant topics and without any delusional content, paranoid ideations or grandiosity; denies any SI/HI. Denies AVH and there is no evidence of perceptual disturbance. Patients insight and judgment appear intact. Data Data Completed and Pending Completed studies during hospitalization [Text1]: 02/13/25 02/13/25 02/15/25 21:19 21:32 08:28 WBC 8.3 RBC 4.06 L Hgb 12.2 L Hct 36.2 L MCV 89.2 MCH 30.0 MCHC 33.7 RDW 11.3 Plt Count 169 MPV 9.9 Immature Gran % (Auto) 0.2 Neut % (Auto) 77.5 H Lymph % (Auto) 15.8 L [place] % (Auto) 5.9 Eos % (Auto) 0.2 Baso % (Auto) 0.4 Lymph # (Auto) 1.3 [place] # (Auto) 0.5 Eos # (Auto) 0.0 Baso # (Auto) 0.0 Abs Immat Gran (auto) 0.02 Absolute Neuts (auto) 6.4 Absolute Nucleated RBC 0.000 Nucleated RBC % (auto) 0.0 Sodium 141 144 Potassium 3.5 3.9 Chloride 110 H 108 Carbon Dioxide 23 31 H Anion Gap 12 9 L BUN 9 10 Creatinine 1.07 1.15 Estim Creat Clear Calc 105.0 98.7 Estimated GFR > 60 > 60 Random Glucose 105 84 Estimat Average Glucose 88 Hemoglobin A1c % 4.7 Calcium 8.9 9.5 D Total Bilirubin 1.2 H 1.3 H AST 19 28 ALT 12 19 Alkaline Phosphatase 46 47 Ammonia 32 Total Protein 6.5 7.1 Albumin 4.0 4.3 Triglycerides 57 Cholesterol 131 LDL Cholesterol, Calc 78 HDL Cholesterol 42 Urine Color Yellow Urine Appearance Clear Urine pH 5.5 Ur Specific [place] 1.025 Urine Protein 30 (1+) H Urine Glucose (UA) Negative Urine Ketones Trace Urine Blood Moderate (2+) H Urine Nitrite Negative Ur Leukocyte Esterase Negative Urine RBC 11-20 H Urine WBC 6-10 H Ur Squamous Epith Cells 0-2 Urine Bacteria None Seen Hyaline Casts 0-2 Granular Casts Present Salicylates < 5.0 L Urine Opiates Screen Not Detected Ur Buprenorphine Scrn Not Detected Ur Oxycodone Screen Not Detected Urine Methadone Screen Not Detected Urine Fentanyl Screen Not Detected Acetaminophen < 3 Ur Barbiturates Screen Not Detected Ur Phencyclidine Scrn Not Detected Ur Amphetamines Screen Not Detected U Benzodiazepines Scrn POSITIVE H Urine Cocaine Screen Not Detected U Marijuana (THC) Screen POSITIVE H Ethyl Alcohol 21 DS: Summary Hospital Course Hospital Course: Patient is a 20-year-old male from [facility], living in [facility] for about 5 years who presents with disorganized aggressive behaviors in the community. Patient is a poor historian does not want to talk much and does not answer questions asked. He denies psychiatric symptoms, denies AVH. However he is amenable to taking medication. Collateral provided following information: ED note reports that patient's mother stated pt was in engaging in odd, purposeless behaviors such as throwing out food that had just been purchased. Apparently pt was arrested a couple of weeks ago for assaulting one of his sisters and spent some days in jailed before he was bailed by his mother. In home crisis team found pt with a woman?s hair cap on and appearing vague and disconnected as well as mumbling things that couldn?t be understood.?When police/ambulance was called pt refused to engage with them and kept repeating ?the yanely isn?t red, the yanely isn?t red? and ?number 5, number 5?. 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 During the admission assessment, pt is calm and overall cooperative. He appears to be internally preoccupied with poor concentration. Pt denied all psych symptoms. He is disorganized and initially while in [address] threw all of his roommates clothes in the trash.? Collateral: Called Mother, Syd Hussein: Mom says pt moved here 5 years ago; nice, friendly, working About 8 months ago, he Stated isolating himself, in room all day, looking depressed, getting fired from jobs, getting angry out of the blue...Getting into arguments w/ sisters; started smoking cannabis all the time. Quit school. A few weeks ago, very angry, verbally aggressive, said his sister was stalking him...some altercation with his sister and 911 was called and [facility]resisting [facility]) and mom bailed him out 1 week ago. When he got back, on Friday he was calm, friendly and organized...but later that day smoked cannabis and ended up back disorganized. Sometimes standing in one place for a long time, not moving...confused...on Friday he took all food out of fridge and threw it away, cut wires of his playstation, putting vacuum in trash, taking all cups out of cabinet and putting in trash bag, crying non-stop... -No hx of psychotic symptoms in [place] [facility] course/Formulation/clinical reasoning: On admission Patient disorganized, guarded and not participating much in discussion. Collateral reports catatonic like symptoms so patient started on Ativan 1 mg t.i.d.; 02/16 pt remains guarded; his only engagement was regarding when he could leave and wanting his mother to come visit. Again would not answer about AVH. Wandering the milieu, not talking much. Risperdal was prescribed which patient is taking. Patient asked for magazine writer to call his mother. -patient appeared without catatonic symptoms; disorganized enough that provoked peer so started on Risperdal -with Risperdal patient became more organized and later in the day, pt seemed to clear up...was more talkative, cooperative...said he was depressed because he missed his father (regarding his mothers reports of depression for months); accepted that his mother wants him to stay through the weekend. To nursing, was much more organized also... -no catatonic symptoms 6/5 pt doing much better today; organized in speech and behavior, friendly and engaged. does not remember specific psychotic symptoms or behaviors but feels better since admission saying he was confused when he first arrived and now feels cleared minded. Seems to accept dx of psychotic illness and agrees that medications have helped him recover. Pt's mother present who agrees mostly back to baseline. Agrees to remain few more days for continued stability and to taper off ativan. Reviewed risks/side-effects of risperdal and pt agrees to continue taking. -discussed cannabis and magazine writer advised to no longer use as will e xacerbate symptoms which he said he would consider. Patient future oriented and eager to get back to his life, wanting to return to nursing school. He remains in good behavioral and impulse control, stable and without any psychotic symptoms, back to his regular self. Patient asking for discharge. Pt not in imminent risk of harm to self/others and appropriate to return to community for tx Medication Risperdal 3mg qhs Time spent discussing smoking cessation with patient: 3 to 10 minutes Status at Discharge Functional status at discharge: independent ambulation Overall status at discharge: patient is back to baseline Time Spent with Patient Time attestation: Total time managing care of this patient today ____ minutes. Time spent: Less than 30 minutes Discharge Plan Discharge Anticipated Discharge Date/Time: 02/19/25 11:00 Patient Disposition: Home, Self-Care Discharge Diagnosis: Schizophrenia Referrals: [facility] Intake w Roya Mckeon [Other] - 02/22/25 1:00 pm (In person. ) [facility] Psychiatry w Louann East [Other] - 03/15/25 12:30 pm (Telehealth) [facility] Med. Mgmt w Louann East [Other] - 04/14/25 11:00 am (Telehealth) [facility] [Other] - 1 Week Discharge Medications: New risperidone 3 mg Tablet 3 mg PO BEDTIME 30 Days Qty: 30 1RF trazodone 50 mg Tablet 50 mg PO BEDTIME PRN (Reason: Insomnia) 30 Days Qty: 30 0RF Discharge Orders: Discharge Order (Routine); Ordered 02/19/25 Ordered By: Douglas Pual Diet: Regular diet Activity on Discharge: As tolerated Stand Alone Forms: Patient Portal Discharge page, Community Support Print Language: Kenyan Care Plan Goals: Maintain mood and safe behaviors Take medications as prescribed Continue to pursue sobriety from cannabis Practice coping skills Continue with outpatient providers and reach out to them as needed Health Concerns: Mood stability and behaviors Sobriety from cannabis Plan of Treatment: Follow up with your PCP, psychiatric provider and other outpatient providers regarding above concerns Take medications as prescribed Assessment: Risk assessment at time of discharge:? Patient was interviewed prior to discharge and found to be fully oriented and without any SI or HI. Patient has improved insight and judgment and wants to continue treatment. Patient is not in imminent risk of harm to self or others and has a safety plan that includes presenting to the closest ER or calling 911 if feeling unsafe.? Patient has been observed closely by nursing and unit staff throughout admission; patient has not engaged in any behaviors that suggest dangerousness to self or others and has demonstrated appropriate behaviors and impulse control Discharge Date/Time: 02/19/25 11:20
[2025-02-18 20:00] VITALS: BP 118/67; PULSE 85; TEMP 36.8; O2SAT 97
[2025-02-18] MEDS: risperiDONE 3 MG TABLET PO (22:13)
[2025-02-19] MEDS: LORazepam 0.5 MG TABLET PO (09:04)
[2025-02-19 09:06] VITALS: BP 118/60; PULSE 76; RESP 16; TEMP 36.4; O2SAT 98
== END 2025-02-19 11:20 | disposition home or self-care (01) | DRG 750 ==
LOC: HO.ED 22:23 → HO.PM5 02-14 12:49
PROVIDERS: Admitting Provider Psychiatry & Neurology Psychiatry; Emergency Provider Emergency Medicine; Visit Provider Psychiatry & Neurology Psychiatry
DX: F20.9 Schizophrenia, unspecified (principal); F06.1 Catatonic disorder due to known physiological condition
CPT/HCPCS: 36415; 80053; 80061; 80143; 80179; 80307; 81001; 82140; 83036; 85025; 93005; 99285; J2250; J2359

== ENCOUNTER → 2025-02-14 08:07 | Outpatient (BNV) | payer OTHER, SELFPAY | PROVIDERS: Admitting Provider Psychiatry & Neurology Psychiatry; Emergency Provider Emergency Medicine; Visit Provider Internal Medicine | DX: Z13.6 Encounter for screening for cardiovascular disorders (principal) | CPT/HCPCS: 93010 ==

== ENCOUNTER → 2025-02-14 12:30 | Outpatient (BNV) | payer OTHER, SELFPAY | PROVIDERS: Admitting Provider Psychiatry & Neurology Psychiatry; Emergency Provider Emergency Medicine; Visit Provider Psychiatry & Neurology Psychiatry | DX: F29 Unspecified psychosis not due to a substance or known physiological condition (principal); F20.1 Disorganized schizophrenia; F06.1 Catatonic disorder due to known physiological condition | CPT/HCPCS: 90792; 99232 ==

== ENCOUNTER 2025-03-03 12:05 | Inpatient (IN) | payer OTHER, SELFPAY ==
--- OUTSIDE RECORDS SUMMARY | 2025-02-25 14:00 | XMS_ITS | Encounter Summary ---
Author Organization [facility] Address [address] [place] [address] Care Team Providers Care Cocoa Butter Filter Operator Name Role Phone Lino Gar MD Primary Care Provider Reason for Visit * Reason Comments Follow-up [facility] follow up Encounter Details Date Type Department Care Team (Late st Contact Info) Description 02/25/2025 2:00 PM EDT Office Visit Adult Medicine [facility] [address] [place] [address] Lino Gar MD [address], [place] Hospital discharge follow-up (Primary Dx); Schizophrenia, unspecified type (CMS/HCC V24, CMS/HCC V28); Behavior problem Social History Tobacco Use Types Packs/Day Years Used Date Smoking Tobacco: Never Smokeless Tobacco: Never Tobacco Cessation:Counseling Given: Not Answered Alcohol Use Standard Drinks/Week Comments Never 0 (1 standard drink = 0.6 oz pur e alcohol) Sex and Gender Information Value Date Recorded Sex Assigned at Not on file Legal Sex Male 8:49 PM EST Gender Identity Not on file Sexual Orientation Not on file documented as of this encounter Last Filed Vital Signs Vital Sign Reading Time Taken Comments Blood Pressure 96/62 02/25/2025 1:57 PM EDT Pulse 83 02/25/2025 1:57 PM EDT Temperature 36.9 C (98.5 F) 02/25/2025 1:57 PM EDT Respiratory Rate 15 02/25/2025 1:57 PM EDT Oxygen Saturation 97% 02/25/2025 1:57 PM EDT Inhaled Oxygen Concentration - - Weight 73.9 kg (163 lb) 02/25/2025 1:57 PM EDT Height 175.3 cm (5' 9 ) 02/25/2025 1:57 PM EDT Body Mass Index 24.07 02/25/2025 1:57 PM EDT documented in this encounter Progress Notes * Lino Gar MD - 02/25/2025 2:00 PM EDT SUBJECTIVE: Alexys Akins is a 20 y.o. male who presents today for Chief Complaint Patient presents with Follow-up [facility] follow up HPI: Patient presenting for follow-up. Patient was admitted to [facility] on the psychiatricunit. I do not have any discharge summary or records at this time review. Is unclear for how many days patient was admitted. Patient stated that he was there for few days. Patient was not initially very forthcoming as to why he was at the hospital. He initially stated that he smoked marijuana that he bought from a new dispensary. He was unable to describe what actually happened but he says his family noticed that he was not well and they called 911 and they took him to the hospital. He says he was admitted there for therapy and stayed for a few days and was then discharged. He says he was discharged on Risperdal but he is not taking that as it gives him nightmares. I did notice that in [facility] that schizophrenia, behavior problem were added to his problem list asdiagnosis. When I asked the patient about whether he had a hallucinations or agitation, he did mention that he did have a behavior problem but did not specify exactly. Patient asked if he could get aprescription for medical marijuana as he would like to use it for to help him sleep. He does not think marijuana is a significant problem and can cause mental health issues. He thinks psychiatric medications are dangerous . We did send a request to [facility] health records department to get his discharge summary from the recent admission. We have not received his records at the time of writing of this note. I asked patient if he could call his parents during office visit to get more history but he states they are on vacation right now, and cannot be reached Current Meds: Current Outpatient Medications: risperiDONE (RisperDAL) 3 mg tablet, Take 1 tablet (3 mg total) by mouth at bedtime. at bedtime for30 days, Disp: , Rfl: Allergies: No Known Allergies Immunizations: Immunization History Administered Date(s) Administered COVID-19 (Moderna/Spikevax) 12yo and older 08/10/2024 DTaP / Hib 2004, 2004, 2004 [id number] (Pediarix) 6 wks to less than 7yo 2004, 2004, 2004, 2004 Hepatitis B Pediatric (Engerix B; Recombivax HB) to less than 20 yo 2004, 2004, 2004 Influenza Quadravalent, MDCK, 0.5ml, preservative free (Flucelvax) 6mo and older 10/02/2022 Measles 2004 OPV 2004, 2004, 2004, 2004 Pfizer (ages 12 & older) Bivalent, COVID-19 05/29/2022 Yellow Fever (YF-VAX) 9mo and older 10/01/2021 Active Problems: Patient Active Problem List Diagnosis Known medical problems HISTORY: No past medical history on file. No past surgical history on file. No family history on file. Social History Socioeconomic History Marital status: Single Spouse name: Not on file Number of children: Not on file Years of education: Not on file Highest education level: Not on file Occupational History Not on file Tobacco Use Smoking status: Never Smokeless tobacco: Never Substance and Sexual Activity Alcohol use: Never Drug use: Yes Types: Marijuana/Cannabis Sexual activity: Not on file Other Topics Concern Not on file Social History Narrative Lives with parents. Recently immigrated from [facility]. ROS: GENERAL: Negative for malaise, significant weight loss and fever RESPIRATORY: No cough, wheezing or shortness of breath CARDIOVASCULAR: Negative for chest pain, leg swelling and palpitations GI: Negative for abdominal discomfort, changes in bowel habits, blood in stool or black stools VITAL SIGNS Vitals: 02/25/25 1357 BP: 96/62 Pulse: 83 Resp: 15 Temp: 36.9 ??C (98.5 ??F) TempSrc: Temporal SpO2: 97% Weight: 73.9 kg (163 lb) Height: 1.753 m (69 ) Body mass index is 24.07 kg/m??. Body surface area is 1.89 meters squared. PHYSICAL EXAM: Blood pressure 96/62, pulse 83, temperature 36.9 ??C (98.5 ??F), temperature source Temporal, resp.rate 15, height 1.753 m (69 ), weight 73.9 kg (163 lb), SpO2 97%. Body mass index is 24.07 kg/m??. Plan is deferred until next visit APPEARANCE: Alert and in no acute distress NEURO: Awake, alert and oriented x 3 and reflexes symmetrical PSYCH: Stable mood. Denies SI/HI ASSESSMENT/PLAN: Alexys was seen today for follow-up. Diagnoses and all orders for this visit: Hospital discharge follow-up (Primary) Schizophrenia, unspecified type ([facility] V24, [facility] V28) Behavior problem Plan It appears the patient was recently admitted to [facility] for schizophrenia, behavioral problem, agitation. I advised her to continue risperidone and avoid marijuana. I advised him that substance use can lead to psychosis. I advised him that I cannot prescribe medical marijuana but he should not be prescribed medical marijuana due to his psychiatric problem. He did not agree with me that marijuana can be harmful. Advised to follow-up with behavioral health, he has an appointmentcoming up with [facility] in the coming days. He could not tell me when exactly thisappointment I will review his discharge summary once we receive and we will contact him if we need to make any changes to his plan. Total time spent on visit: I spent 20 minutes in [id number] and non [id number] time reviewing, documenting clinical information,, examination and evaluation of patient, formulating care plan and counseling patient. I have applied the code G2211 to this patient???s visit as the primary care provider dealing with (above mentioned conditions) leading to the extensive work up, and management associated with the medical care of this patient. I have reviewed all information as it pertains to the management of this patient for final approval. Follow up if symptoms worsen or fail to improve, for Next scheduled follow-up. No orders of the defined types were placed in this encounter. No results found for this or any previous visit (from the past 4 weeks). Lino Gar MD * Lino Gar MD - 02/25/2025 2:00 PM EDT Received records from [facility]. Discharge summary reviewed. Labs reviewed. They are essentially normal. His urine drug screen was positive for marijuana, alcohol as well as benzodiazepine. He receivedAtivan in the ER so this was likely the cause of positive benzodiazepine urine drug screen he was admitted for catatonia as well as for schizophrenia. Was discharged on trazodone and risperidone. He was advised to follow-up with [facility]. I do not think we need to make any changes to the plan at this time. I did advise the patient to follow-up with behavioral health. He did not seem amenable to my advice on limiting or stopping marijuana use during the office visit. documented in this encounter Plan of Treatment Not on file documented as of this encounter Visit Diagnoses Diagnosis Hospital discharge follow-up- Primary Other follow-up examination Schizophrenia, unspecified type ([facility] V24, [facility] V28) Behavior problem documented in this encounter Historical Medications * This list may reflect changes made after this encounter. risperiDONE (RisperDAL) 3 mg tablet Take 1 tablet (3 mg total) by mouth at bedtime. at bedtime for 30 days 02/18/2025 added in this encounter Care Teams Cocoa Butter Filter Operator Relationship Specialty Start Date End Date Lino Gar MD [address] [place] [address] PCP - General 09/25/22 documented as of this encounter
[2025-03-03 12:22] VITALS: BMI 22.6
[2025-03-03 12:27] VITALS: BP 136/66; PULSE 86; RESP 18; TEMP 37; O2SAT 99
--- NOTE | 2025-03-03 12:29 | PC.NURSE ---
Patient arrived via ems from home. Per ems family reports patient has dx of schizophrenia and has not been taking his meds and he has not slept in 4 days. Upon arrival patient changed over in main ED and brought back to 3. Patient alert but provides little history when asked if he has been taking his medications. Patient making poor eye contact while playing with his hair. Denies SI but unable to state if he has any allergies.
--- NOTE | 2025-03-03 12:34 | ECG_ITS ---
Test Reason : CHECK QT INTERVAL Blood Pressure : */* mmHG Vent. Rate : 68 BPM Atrial Rate : 68 BPM P-R Int : 170 ms QRS Dur : 80 ms QT Int : 360 ms P-R-T Axes : 56 65 58 degrees QTcB Int : 382 ms Normal sinus rhythm Nonspecific T wave abnormality Abnormal ECG When compared with ECG of 14-Feb-2025 10:14, No significant change was found Referred By: Delia Craig Electronically Signed By: Ray Burr
--- NOTE | 2025-03-03 12:34 | ED_ITS ---
HPI - General Adult General Chief complaint: Psychiatric Symptoms Stated complaint: SEC 12 BY [facility], DELUSIONAL,ERRATIC BEHAVIOR PER EMS Time Seen by Provider: 03/03/25 12:34 Source: patient and EMS Mode of arrival: EMS Limitations: no limitations History of Present Illness ED Provider: Delia Craig PA-C HPI narrative: Patient is a 20 year old assigned male at with a history of schizophrenia presenting to the emergency department today with disorganized behavior. Patient states that he just wants a eastman and someone to fix his hair. Patient's family states that the patient is not taking his medication and has been acting erratically. Patient denies any dizziness, lightheadedness, abdominal pain, nausea, vomiting, fever, chills, blurry vision, double vision, loss of vision, chest pain, difficulty breathing, shortness of breath, back pain, night sweats, pain with urination, increased urinary frequency, increased urinary urgency, blood in his urine or stool, syncope or a near syncopal episode, recent trauma or falls, bowel incontinence, bladder incontinence, or any other complaints at this time. Relieving factors: none Exacerbating factors: none Associated symptoms: denies other symptoms Treatments prior to arrival: none Related Data Previous Rx's ?Medication ?Instructions ?Recorded risperidone 3 mg tablet 3 mg PO BEDTIME 30 days #30 tabs 02/18/25 trazodone 50 mg tablet 50 mg PO BEDTIME PRN Insomni a 30 02/18/25 days #30 tabs Allergies Allergy/AdvReac Type Severity Reaction Status Date / Time Unable to Assess Allergy Verified 03/03/25 12:25 Review of Systems 2 Constitutional: Constitutional: Reports no additional constitutional complaints, Denies chills, Denies fever(s) and Denies night sweats Eyes: Eyes: Reports no additional eye complaints, Denies blurry vision, Denies change in vision, Denies diplopia, Denies eye discharge, Denies loss of vision and Denies eye pain ENT: Denies dizziness Cardiovascular: Cardiovascular: Reports no additional cardiovascular complaints, Denies chest pain, Denies lightheadedness, Denies Loss of Consciousness and Denies dyspnea Respiratory: Respiratory: Reports no additional respiratory complaints and Denies dyspnea Gastrointestinal: Gastrointestinal: Reports no additional gastrointestinal complaints, Denies abdominal pain, Denies melena, Denies hematochezia, Denies change in bowel habits and Denies change in stool character Genitourinary: Genitourinary: Reports no additional male genitourinary complaints, Denies hematuria, Denies oliguria, Denies difficulty urinating, Denies dysuria, Denies urinary frequency, Denies urinary hesitancy, Denies urinary incontinence and Denies urinary urgency Musculoskeletal: Musculoskeletal: Reports no additional musculoskeletal complaints, Denies numbness and Denies tingling Neurologic: Denies dizziness, Denies loss of vision, Denies numbness and Denies tingling Psychiatric: Psychiatric: Denies homicidal ideation and Denies suicidal ideation Comments: delusional Endocrine: Endocrine: Reports no additional endocrine complaints Hematologic/Lymphatic: Hematologic/Lymphatic: Reports no additional hematologic/lymphatic complaints Allergic/Immunologic: Allergic/Immunologic: Reports no additional allergic/immunologic complaints PMFSH Past Medical History Attestation statement: The following information was validated with the patient. Source: old records reviewed and nursing notes reviewed Medical History Schizophrenia Social History Social History Household Members: Family Housing: House Do you presently have visiting nurse or other home services: No Unable to assess alcohol history related to: Unknown Patient Tobacco Use Status: Never used Tobacco Use of substances other than those prescribed or required for medical reasons: Yes Substance Use Type: Marijuana Advance Directives: No Advance Directives Information Provided: No service: No Sexual orientation: Unable to collect Physical Exam ED Vital Signs: Vital Signs - 24 hr 03/03/25 12:27 Temperature 98.6 F Pulse Rate 86 Respiratory Rate 18 Blood Pressure 136/66 Pulse Oximetry 99 Oxygen Delivery Method Room Air BMI result Body Mass Index 22.6 Const General: cooperative, no acute distress, alert and awake Nutritional Appearance: well nourished Orientation/consciousness: patient oriented x3 HENMT Head: Yes normal to inspection and Yes atraumatic Ears: hearing grossly normal bilaterally and external ears normal General nose exam: Normal external nose present, no nasal discharge noted and no epistaxis Face and sinus: Yes normal facial exam, No abrasion and No laceration Mouth: Normal oral and palatal mucosa present, no drooling and no muffled voice Eyes General: appearance normal, both eyes and all related structures Periorbital: periorbital findings normal Eyelids: Yes eyelids normal Conjunctivae: conjunctivae normal Pupils: Equal, round and reactive pupils present EOM: EOMs intact bilaterally Neck Neck: Yes normal visual inspection, Yes full ROM and Yes no lymphadenopathy Resp Effort & Inspection: normal respiratory effort and able to speak in complete sentences Neuro General: patient oriented x3, moves all extremities and CN's II-XI intact bilaterally Cranial nerves: Yes Equal, round and reactive pupils present Cognition (Neuro): normal cognition Extrem General: Yes normal to inspection, Yes full ROM and Yes capillary refill normal Psych Other: Acutely delusional Unable to have complete conversation Continually references his need for a haircut Appearance: grossly normal Mental Status: mental status grossly normal Medical Decision Making Medical Decision Making MDM Narrative: Patient is a 20 year old assigned male at with a history of schizophrenia presenting to the emergency department today with disorganized behavior. Patient's physical exam was as noted in the physical exam portion of this note. Patient's blood work was unremarkable. Patient's urine showed no acute process. Patient's EKG was unremarkable. Patient was evaluated by the CARE team who recommended inpatient level of psychiatric care. I explained my physical exam findings as well as all test results to the patient. I answered all questions asked by the patient. Patient admitted to [facility] inpatient psychitric care. Differential Diagnosis Differential Diagnoses: The differential diagnosis associated with the presentation includes Schizophrenia Disorganized Admission/Observation Consideration of admission/observation: Escalation of care including admission/observation considered Patient admitted to the psychiatric floor as noted in the MDM Rationale portion of this note. Consult Healthcare Provider Management of the patient was discussed with: Behavioral Health Provider (spoke to the CARE team as noted in the MDM Rationale portion of this note. ) Lab Data [facility] Lab Attestation statement: I reviewed the patient's lab results. My interpretation of these results are in the MDM Rationale portion of this note. 03/03/25 12:43 03/03/25 12:43 Labs: Lab Results 03/03/25 Range/Units 12:43 WBC 6.1 (4.8-10.8) X10*3/uL RBC 4.91 D (4.60-5.80) X10*6/uL Hgb 14.6 (14.0-18.0) g/dl Hct 43.3 (42.0-52.0) % MCV 88.2 (80.0-98.0) fL MCH 29.7 (27.0-33.0) pg MCHC 33.7 (31.0-36.0) g/dl RDW 11.7 (11.0-16.0) % Plt Count 269 D (160-400) X10*3/uL MPV 9.8 (9.4-12.4) fL Immature Gran % (Auto) 0.2 (0.0-0.4) % Neut % (Auto) 65.7 (45-73) % Lymph % (Auto) 26.1 (20-40) % [place] % (Auto) 7.5 (2-11) % Eos % (Auto) 0.0 (0-4) % Baso % (Auto) 0.5 (0-2) % Lymph # (Auto) 1.6 (1.2-4.9) X10*3/uL [place] # (Auto) 0.5 (0.1-1.2) X10*3/uL Eos # (Auto) 0.0 (0.0-0.4) X10*3/uL Baso # (Auto) 0.0 (0.0-0.2) X10*3/uL Abs Immat Gran (auto) 0.01 (0.00-0.03) X10*3/uL Absolute Neuts (auto) 4.0 (2.0-8.3) x10*3/uL Absolute Nucleated RBC 0.000 (0.0-0.012) X10*3/uL Nucleated RBC % (auto) 0.0 (0.0-0.2) /100WBC Sodium 140 (135-145) mmol/L Potassium 3.8 (3.3-5.1) mmol/L Chloride 106 (96-108) mmol/L Carbon Dioxide 26 (22-29) mmol/L Anion Gap 12 (12-20) BUN 14 (9-16) mg/dL Creatinine 1.05 (0.5-1.4) mg/dL Estim Creat Clear Calc 99.9 Estimated GFR > 60 Random Glucose 107 (60-115) mg/dL Calcium 10.0 (8.4-10.2) mg/dL Total Bilirubin 1.4 H (0.0-1.0) mg/dL AST 24 (5-37) U/L ALT 37 (0-40) U/L Alkaline Phosphatase 65 (39-117) U/L Total Protein 8.4 H (6.5-8.0) g/dL Albumin 5.1 H (3.5-5.0) g/dL Urine Color Dark Yellow Urine Appearance Clear Urine pH 6.0 (5.0-9.0) Ur Specific [place] >= 1.030 H (1.005-1.025) Urine Protein 30 (1+) H (Neg-Trace) mg/dL Urine Glucose (UA) Negative (Negative) mg/dL Urine Ketones 15 (Negative) mg/dL Urine Blood Negative (Negative) Urine Nitrite Negative (Negative) Ur Leukocyte Esterase Negative (Negative) Urine RBC 0-2 (0-2) /HPF Urine WBC 0-5 (0-5) /HPF Ur Squamous Epith Cells 0-2 (0-2) /HPF Urine Bacteria None Seen (None Seen) Hyaline Casts 0-2 (0-2) /LPF Salicylates < 5.0 L (15-30) mg/dL Urine Opiates Screen Not Detected (Not Detect) Ur Buprenorphine Scrn Not Detected (Not Detect) ng/mL Ur Oxycodone Screen Not Detected (Not Detect) ng/mL Urine Methadone Screen Not Detected (Not Detect) ng/mL Urine Fentanyl Screen Not Detected (Not Detect) Acetaminophen < 3 (<30) mcg/mL Ur Barbiturates Screen Not Detected (Not Detect) Ur Phencyclidine Scrn Not Detected (Not Detect) Ur Amphetamines Screen Not Detected (Not Detect) U Benzodiazepines Scrn Not Detected (Not Detect) Urine Cocaine Screen Not Detected (Not Detect) U Marijuana (THC) Screen POSITIVE H (Not Detect) Ethyl Alcohol < 10 mg/dL Independent Interpretation I performed an independent interpretation of an: EKG Interpretation: I independently interpreted this EKG and am in agreement with the below findings: Vent. Rate: 68 BPM Atrial Rate: 68 BPM P-R Int: 170 ms QRS Dur: 80 ms QT Int: 360 ms P-R-T Axes: 56 65 58 degrees QTcB Int: 382 ms Normal sinus rhythm Nonspecific T wave abnormality When compared with ECG of 14-Feb-2025 10:14, No significant change was found DD/ 1331 Independent Historian Clinical information obtained from an independent historian. History obtained from or confirmed by: EMS (EMS provided additional history and confirmed the history provided by the patient.) Critical Care Time Critical Care Time Critical Care Time: Yes Total Critical Care Time: 33 Attestation: I spent 33 minutes of Critical Care Time with this patient. This does not include time spent on separately reported billable procedures. Discharge Plan Discharge Clinical Impression: Schizophrenia Qualifiers: Schizophrenia type: unspecified Qualified Code(s): F20.9 - Schizophrenia, unspecified Patient Disposition: Admitted As Inpatient Interventions: [place]-Suicide Risk Severity Scale Last Done: 03/03/25 12:28
--- NOTE | 2025-03-03 12:41 | PC.NURSE ---
Patients mother called stating patient has not slept in 4 days, reports when he was discharged fro [facility] [place] he was 80% better Mom confirms patient was taking 2 meds (trazodone and risperidal) but stopped taking the meds and has been vaping marijuana. Mother reports when he smokes he decompensates and becomes paranoid. She reports he has been walking around the house throwing things. Mother reports earlier this week she called crisis and tried giving patient trazodone but it still did not help patient sleep. States he was walking down the road and would not get in her car and was sitting on the curb x 4 hours yesterday before coming back inside.
[2025-03-03 12:47] LABS: MANUAL DIFF FLAG NO
[2025-03-03 12:49] LABS: Hematocrit 43.3 % (42.0-52.0); Hemoglobin 14.6 g/dl (14.0-18.0); Imm Gran Abs Auto 0.01 X10*3/uL (0.00-0.03); Imm Gran Pct Auto 0.2 % (0.0-0.4); Lymphocytes Absolute Auto 1.6 X10*3/uL (1.2-4.9); Mean Corpuscular HGB Conc 33.7 g/dl (31.0-36.0); Mean Corpuscular Hemoglobin 29.7 pg (27.0-33.0); Mean Corpuscular Volume 88.2 fL (80.0-98.0); NRBC Abs Auto 0.000 X10*3/uL (0.0-0.012); NRBC Pct Auto 0.0 /100WBC (0.0-0.2); Platelet Count 269 X10*3/uL (160-400); Red Blood Count 4.91 X10*6/uL (4.60-5.80); White Blood Count 6.1 X10*3/uL (4.8-10.8)
[2025-03-03 12:51] LABS: Appearance Urine Clear; Glucose Urine UA Negative (Negative); PH 6.0 (5.0-9.0); Specific Gravity - Urine >= 1.030 (1.005-1.025); UMIC TRIGGER UACC YES
[2025-03-03 13:00] LABS: Cannabinoid Screen Urine POSITIVE (Not Detect)
[2025-03-03 13:02] LABS: Acetaminophen LAB < 3 mcg/mL (<30); Alanine Aminotransferase 37 U/L (0-40); Albumin Level 5.1 g/dL (3.5-5.0); Alkaline Phosphatase 65 U/L (39-117); Anion Gap 12 (12-20); Aspartate Amino Transferase 24 U/L (5-37); Blood Urea Nitrogen 14 mg/dL (9-16); Calcium 10.0 mg/dL (8.4-10.2); Carbon Dioxide 26 mmol/L (22-29); Chloride 106 mmol/L (96-108); Creatinine Clr Calc Pharmacy 99.9; Estimated Glomerular Filt Rate > 60; Potassium 3.8 mmol/L (3.3-5.1); Salicylate < 5.0 mg/dL (15-30); Sodium 140 mmol/L (135-145); Total Protein 8.4 g/dL (6.5-8.0)
--- NOTE | 2025-03-03 13:38 | PHA.MEDREC ---
Pharmacy Consult ? Medication Reconciliation Pharmacy has completed the medication reconciliation. Went over med rec with nursing, matches claim HX and she spoke to patient's mother regarding home meds
--- NOTE | 2025-03-03 13:48 | MHC.CARE ---
Patient seen by [facility] in the community and the disposition is ADULT [facility].
--- NOTE | 2025-03-03 18:14 | PC.ADMIT ---
Sae arrived via wheelchair from [facility] at [id number]. He is alert and only speaks with occasional single word answers. He was cooperative with skin and safety check. His skin check is unremarkable. Sae cooperated with vitals and weight but when asked why he was in the hospital he didn't answer at all, than after asking the question again he replied ?I don't know?. He is observed slapping the back of his head at the base of his skull every couple of minutes. When asked if he hears anything other than this nurse speaking, he shakes his head indicating no. ?Per [facility] crisis report ?He was evaluated at his home after his mom called regarding worsening behavior. He had an IPLOC a month ago and was diagnosed with schizophrenia. He was provided medications at that time. After discharge he increased marijuana use, stopped taking medications and has decompensated over time. He hasn't slept since friday and has not been eating. He has been engaging in odd behavior since yesterday ie rocking back and forth on the side of the road for 4 hours and taking all the items out of his room.--- Sae appears to be thought blocking, internally preoccupied. He wont/cant answer admission questions at this time. He was briefly oriented to the unit, understanding not able to be verified. He was given a pitcher of ice water and a container that had all his toiletries in it. Shortly after, this nurse entered the room to find his water pitcher emptied, toiletries in it and placed on the other side of the room from him. He was holding a container of orange sherbet and staring at it. This nurse provided a spoon. But he didn't take it. He just stared at the cup. He did [facility]. He provided no answer to safety questions or to the question of signing ROIs. He did sign a CV with Gianni Rubi NP. He is on 15 minute safety checks.?
[2025-03-03 18:30] VITALS: BP 136/89; PULSE 71; RESP 16; TEMP 36.6; O2SAT 99
[2025-03-03 18:31] VITALS: BMI 21.9
[2025-03-03 20:00] VITALS: BP 131/72; PULSE 61; RESP 16; TEMP 36.4; O2SAT 97
[2025-03-04 07:55] VITALS: BP 119/72; PULSE 85; RESP 16; TEMP 36.4; O2SAT 98
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
[2025-03-04 20:00] VITALS: BP 131/67; PULSE 100; TEMP 36.3; O2SAT 97
--- NOTE | 2025-03-05 05:58 | HO.PSYCHPN ---
Subjective Subjective Date of Service: 03/05/25 Reason For Visit: Schizophrenia Interim History: Pt seen, discussed with his team. Quiet, visable in milieu, yet isolative. Interacts when approached Denies current issues/concerns Medication Compliance: Yes Side effects from medications: No Attending Groups: No Review of Systems Acute medical concerns: No Review of Systems Review of Systems No Mental Status Exam Mental Status Exam Patient Appearance: Appropriate Patient Orientation: Person and Place Level of Consciousness: Alert Mood Description: Withdrawn Affect Description: Withdrawn Ability to Follow Directions: Good Speech Pattern: Spontaneous Speech Delusions: Present Perceptual Disturbances: Derealization Thought Content: positive for Circumstantial Judgement: Fair Diagnostics Vital Signs (24Hr): Vital Signs - 24 hr 03/04/25 07:55 03/04/25 20:00 Temperature 97.5 F 97.3 F Pulse Rate 85 100 Respiratory Rate 16 Blood Pressure 119/72 131/67 Pulse Oximetry 98 97 Oxygen Delivery Method Room Air BMI result Body Mass Index 21.9 Labs 03/03/25 12:43 03/03/25 12:43 Labs: Laboratory Results - last 48 hr 03/03/25 12:43 WBC 6.1 RBC 4.91 D Hgb 14.6 Hct 43.3 MCV 88.2 MCH 29.7 MCHC 33.7 RDW 11.7 Plt Count 269 D MPV 9.8 Immature Gran % (Auto) 0.2 Neut % (Auto) 65.7 Lymph % (Auto) 26.1 [place] % (Auto) 7.5 Eos % (Auto) 0.0 Baso % (Auto) 0.5 Lymph # (Auto) 1.6 [place] # (Auto) 0.5 Eos # (Auto) 0.0 Baso # (Auto) 0.0 Abs Immat Gran (auto) 0.01 Absolute Neuts (auto) 4.0 Absolute Nucleated RBC 0.000 Nucleated RBC % (auto) 0.0 Sodium 140 Potassium 3.8 Chloride 106 Carbon Dioxide 26 Anion Gap 12 BUN 14 Creatinine 1.05 Estim Creat Clear Calc 99.9 Estimated GFR > 60 Random Glucose 107 Calcium 10.0 Total Bilirubin 1.4 H AST 24 ALT 37 Alkaline Phosphatase 65 Total Protein 8.4 H Albumin 5.1 H Urine Color Dark Yellow Urine Appearance Clear Urine pH 6.0 Ur Specific [place] >= 1.030 H Urine Protein 30 (1+) H Urine Glucose (UA) Negative Urine Ketones 15 Urine Blood Negative Urine Nitrite Negative Ur Leukocyte Esterase Negative Urine RBC 0-2 Urine WBC 0-5 Ur Squamous Epith Cells 0-2 Urine Bacteria None Seen Hyaline Casts 0-2 Salicylates < 5.0 L Urine Opiates Screen Not Detected Ur Buprenorphine Scrn Not Detected Ur Oxycodone Screen Not Detected Urine Methadone Screen Not Detected Urine Fentanyl Screen Not Detected Acetaminophen < 3 Ur Barbiturates Screen Not Detected Ur Phencyclidine Scrn Not Detected Ur Amphetamines Screen Not Detected U Benzodiazepines Scrn Not Detected Urine Cocaine Screen Not Detected U Marijuana (THC) Screen POSITIVE H Ethyl Alcohol < 10 Medications Medications Current Medications Acetaminophen (Acetaminophen 325 Mg Tablet) 650 mg PO Q6H PRN PRN Reason: Headache/Pain, Scale 1-10 Al Hydroxide/Mg Hydroxide (Magnesium Hydrox/Alum Hydrox 30 Ml Oral.Susp) 30 ml PO Q6H PRN PRN Reason: Heartburn/Nausea Hydroxyzine HCl (Hydroxyzine Hcl 25 Mg Tablet) 25 mg PO Q6H PRN PRN Reason: mild anxiety Magnesium Hydroxide (Milk Of Magnesia 30 Ml Oral.Susp) 30 ml PO DAILY PRN PRN Reason: Constipation Nicotine Polacrilex (Nicotine Polacrilex 2 Mg Gum) 4 mg BUCCAL Q2H PRN PRN Reason: Nicotine Cravings Olanzapine (Olanzapine 5 Mg Tablet) 5 mg PO Q4H PRN PRN Reason: agitation Risperidone (Risperidone 3 Mg Tablet) 3 mg PO BEDTIME SALVATORE Last Admin: 03/04/25 22:09 Dose: Not Given Trazodone HCl (Trazodone Hcl 50 Mg Tablet) 50 mg PO BEDTIME PRN PRN Reason: Insomnia Allergies Allergies Allergy/AdvReac Type Severity Reaction Status Date / Time Unable to Assess Allergy Verified 03/03/25 12:25 Assessment & Plan Assessment & Plan (1) Schizophrenia: Qualifiers: Schizophrenia type: unspecified Qualified Code(s): F20.9 - Schizophrenia, unspecified Status: Acute Code(s): F20.9 - Schizophrenia, unspecified (2) Marijuana abuse, continuous: Status: Acute Code(s): F12.10 - Cannabis abuse, uncomplicated Plan Plan: HPI: Patient is a 20 year old assigned male at with a history of schizophrenia presenting to the emergency department today with disorganized behavior. Patient states that he just wants a eastman and someone to fix his hair. Patient's family states that the patient is not taking his medication and has been acting erratically.He was evaluated at his home after his mom called regarding worsening behavior. Stopped taking medication after discharge from on 02/18. Increased marijuana use. -menstruate bizarre behavior at home since past Friday, become more paranoid and thought blocks, rapid decompensation. Increased paranoid behavior. This is 2nd inpatient admission in a very short period of time. (it was here from February 13 to February 18). Increase marijuana use which may contribute to his paranoid thoughts and behavior changes Formulation/clinical reasoning: Family has safety concern regarding the rapid decompensation after stopped taking medication. He was prescribed risperidone 3 mg at bedtime. Not follow-up with outpatient provider for aftercare. Increased marijuana use. The combination of not taking medication and substance use with carrying of schizophrenic diagnosis, lead to rapid decompensate. Increase thought blocks, increased paranoid thoughts, not eating and sleeping well lately. Given above information, he will be benefit in inpatient level of care. We will monitor and restart auto medication with plan to getting long-acting injection on poor. Hospital course: 03/04/25: Restart risperidone 3 mg at bedtime for psychosis. 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 We will wean off table of when symptoms decreased. 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 We will discuss with mom in detail regarding ENRIQUE on risperidone Consta or Uzydi. At this time he wants the shot for once a month. In the meantime we will have him taking risperidone probably increase over the weekend up to 4 mg/day 03/05: Continue Risperdal Plan Patient on 15 minute checks for safety. Admitted to . CV. He placed on single room due to paranoid thoughts and somewhat confused going to different people rooms. Work with treatment team to do collateral and referral for aftercare. We reinforced the negative effects on marijuana when he is more clear. Patient is medically clear from [facility]. unremarkable labs work and EKG is within normal limits. Reason for continued inpatient stay Substantial Risk for: rapid decompensation Time Spent With Patient Time: Total time managing care of this patient today ____ minutes.
[2025-03-05 08:00] VITALS: BP 114/61; PULSE 88; RESP 18; TEMP 36.9; O2SAT 98
--- NOTE | 2025-03-06 05:38 | P.PNPSI_ITS ---
Subjective Subjective Date of Service: 03/06/25 Reason For Visit: Schizophrenia Interim History: Appears calmer today. Team report no issues of concern. They report mom has asked to do Risperdal increase although pt seems to be doing well on 3 mg. Will trial 4 mg and continue if pt is without SE. Medication Compliance: Yes Side effects from medications: No Attending Groups: Intermittent Review of Systems Acute medical concerns: No Review of Systems Review of Systems Yes all other systems are reviewed and are negative Mental Status Exam Mental Status Exam Patient Appearance: Appropriate Patient Orientation: Person, Place and Situation Level of Consciousness: Alert Patient Behavior: Talkative and Good Eye Contact Mood Description: Withdrawn Affect Description: Withdrawn Patient Cognition Impaired: No Ability to Follow Directions: Good Speech Pattern: Spontaneous Speech Hallucinations: None Delusions: Not Present Thought Content: positive for Circumstantial Judgement: Fair Diagnostics Vital Signs (24Hr): Vital Signs - 24 hr 03/05/25 08:00 Temperature 98.5 F Pulse Rate 88 Respiratory Rate 18 Blood Pressure 114/61 Pulse Oximetry 98 Oxygen Delivery Method Room Air BMI result Body Mass Index 21.9 Labs 03/03/25 12:43 03/03/25 12:43 Medications Medications Current Medications Acetaminophen (Acetaminophen 325 Mg Tablet) 650 mg PO Q6H PRN PRN Reason: Headache/Pain, Scale 1-10 Al Hydroxide/Mg Hydroxide (Magnesium Hydrox/Alum Hydrox 30 Ml Oral.Susp) 30 ml PO Q6H PRN PRN Reason: Heartburn/Nausea Hydroxyzine HCl (Hydroxyzine Hcl 25 Mg Tablet) 25 mg PO Q6H PRN PRN Reason: mild anxiety Magnesium Hydroxide (Milk Of Magnesia 30 Ml Oral.Susp) 30 ml PO DAILY PRN PRN Reason: Constipation Nicotine Polacrilex (Nicotine Polacrilex 2 Mg Gum) 4 mg BUCCAL Q2H PRN PRN Reason: Nicotine Cravings Olanzapine (Olanzapine 5 Mg Tablet) 5 mg PO Q4H PRN PRN Reason: agitation Risperidone (Risperidone 3 Mg Tablet) 3 mg PO BEDTIME SALVATORE Last Admin: 03/05/25 21:06 Dose: 3 mg Trazodone HCl (Trazodone Hcl 50 Mg Tablet) 50 mg PO BEDTIME PRN PRN Reason: Insomnia Allergies Allergies Allergy/AdvReac Type Severity Reaction Status Date / Time Unable to Assess Allergy Verified 03/03/25 12:25 Assessment & Plan Assessment & Plan (1) Schizophrenia: Qualifiers: Schizophrenia type: unspecified Qualified Code(s): F20.9 - Schizophrenia, unspecified Status: Acute Code(s): F20.9 - Schizophrenia, unspecified (2) Marijuana abuse, continuous: Status: Acute Code(s): F12.10 - Cannabis abuse, uncomplicated Plan Plan: HPI: Patient is a 20 year old assigned male at with a history of schizophrenia presenting to the emergency department today with disorganized behavior. Patient states that he just wants a eastman and someone to fix his hair. Patient's family states that the patient is not taking his medication and has been acting erratically.He was evaluated at his home after his mom called regarding worsening behavior. Stopped taking medication after discharge from on 02/18. Increased marijuana use. -menstruate bizarre behavior at home since past Friday, become more paranoid and thought blocks, rapid decompensation. Increased paranoid behavior. This is 2nd inpatient admission in a very short period of time. (it was here from February 13 to February 18). Increase marijuana use which may contribute to his paranoid thoughts and behavior changes Formulation/clinical reasoning: Family has safety concern regarding the rapid decompensation after stopped taking medication. He was prescribed risperidone 3 mg at bedtime. Not follow-up with outpatient provider for aftercare. Increased marijuana use. The combination of not taking medication and substance use with carrying of schizophrenic diagnosis, lead to rapid decompensate. Increase thought blocks, increased paranoid thoughts, not eating and sleeping well lately. Given above information, he will be benefit in inpatient level of care. We will monitor and restart auto medication with plan to getting long-acting injection on poor. Hospital course: 03/04/25: Restart risperidone 3 mg at bedtime for psychosis. 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 We will wean off table of when symptoms decreased. 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 We will discuss with mom in detail regarding ENRIQUE on risperidone Consta or Uzydi. At this time he wants the shot for once a month. In the meantime we will have him taking risperidone probably increase over the weekend up to 4 mg/day. 03/05: Increase Risperdal to 4 mg HS Plan Patient on 15 minute checks for safety. Admitted to . CV. He placed on single room due to paranoid thoughts and somewhat confused going to different people rooms. Work with treatment team to do collateral and referral for aftercare. We reinforced the negative effects on marijuana when he is more clear. Patient is medically clear from [facility]. unremarkable labs work and EKG is within normal limits. Reason for continued inpatient stay Substantial Risk for: rapid decompensation Time Spent With Patient Time: Total time managing care of this patient today ____ minutes.
[2025-03-06 07:57] VITALS: BP 124/60; PULSE 69; TEMP 37.4; O2SAT 97
[2025-03-06 20:00] VITALS: BP 138/64; PULSE 78; TEMP 36.9; O2SAT 98
[2025-03-07 07:59] VITALS: BP 118/59; PULSE 78; RESP 18; TEMP 37.2; O2SAT 97
--- NOTE | 2025-03-07 13:47 | P.PNPSI_ITS ---
Subjective Subjective Date of Service: 03/07/25 Reason For Visit: Schizophrenia Interim History: Active on unit. attending groups. Patient reports feeling good ; declined risperidal last night. pt stated, I stopped taking the medication because I'm sleeping better . Pt educated regarding importance of medication compliance. per nursing, pt slept 7 hours last night. denies SI/HI/VH/AH. Continue current tx plan. Medication Compliance: Intermittent Side effects from medications: No Attending Groups: Yes Mental Status Exam Mental Status Exam Patient Appearance: Appropriate Patient Orientation: Person, Place, Time and Situation Level of Consciousness: Awake and Alert Patient Behavior: Appropriate, Guarded and Cooperative Mood Description: Calm Affect Description: Blunted Ability to Follow Directions: Good Speech Pattern: Clear Memory Description: Intact Hallucinations: None Delusions: Not Present Thought Process: Intact Thought Content: positive for Intact Diagnostics Vital Signs (24Hr): Vital Signs - 24 hr 03/06/25 20:00 03/07/25 07:59 Temperature 98.5 F 98.9 F Pulse Rate 78 78 Respiratory Rate 18 Blood Pressure 138/64 118/59 L Pulse Oximetry 98 97 Oxygen Delivery Method Room Air Room Air BMI result Body Mass Index 21.9 Labs 03/03/25 12:43 03/03/25 12:43 Medications Medications Current Medications Acetaminophen (Acetaminophen 325 Mg Tablet) 650 mg PO Q6H PRN PRN Reason: Headache/Pain, Scale 1-10 Al Hydroxide/Mg Hydroxide (Magnesium Hydrox/Alum Hydrox 30 Ml Oral.Susp) 30 ml PO Q6H PRN PRN Reason: Heartburn/Nausea Hydroxyzine HCl (Hydroxyzine Hcl 25 Mg Tablet) 25 mg PO Q6H PRN PRN Reason: mild anxiety Magnesium Hydroxide (Milk Of Magnesia 30 Ml Oral.Susp) 30 ml PO DAILY PRN PRN Reason: Constipation Nicotine Polacrilex (Nicotine Polacrilex 2 Mg Gum) 4 mg BUCCAL Q2H PRN PRN Reason: Nicotine Cravings Olanzapine (Olanzapine 5 Mg Tablet) 5 mg PO Q4H PRN PRN Reason: agitation Risperidone (Risperidone 2 Mg Tablet) 4 mg PO BEDTIME SALVATORE Last Admin: 03/06/25 22:01 Dose: Not Given Trazodone HCl (Trazodone Hcl 50 Mg Tablet) 50 mg PO BEDTIME PRN PRN Reason: Insomnia Allergies Allergies Allergy/AdvReac Type Severity Reaction Status Date / Time Unable to Assess Allergy Verified 03/03/25 12:25 Assessment & Plan Assessment & Plan (1) Schizophrenia: Qualifiers: Schizophrenia type: unspecified Qualified Code(s): F20.9 - Schizophrenia, unspecified Status: Acute Code(s): F20.9 - Schizophrenia, unspecified (2) Marijuana abuse, continuous: Status: Acute Code(s): F12.10 - Cannabis abuse, uncomplicated Plan Plan: HPI: Patient is a 20 year old assigned male at with a history of schizophrenia presenting to the emergency department today with disorganized behavior. Patient states that he just wants a eastman and someone to fix his hair. Patient's family states that the patient is not taking his medication and has been acting erratically.He was evaluated at his home after his mom called regarding worsening behavior. Stopped taking medication after discharge from on 02/18. Increased marijuana use. -menstruate bizarre behavior at home since past Friday, become more paranoid and thought blocks, rapid decompensation. Increased paranoid behavior. This is 2nd inpatient admission in a very short period of time. (it was here from February 13 to February 18). Increase marijuana use which may contribute to his paranoid thoughts and behavior changes Formulation/clinical reasoning: Family has safety concern regarding the rapid decompensation after stopped taking medication. He was prescribed risperidone 3 mg at bedtime. Not follow-up with outpatient provider for aftercare. Increased marijuana use. The combination of not taking medication and substance use with carrying of schizophrenic diagnosis, lead to rapid decompensate. Increase thought blocks, increased paranoid thoughts, not eating and sleeping well lately. Given above information, he will be benefit in inpatient level of care. We will monitor and restart auto medication with plan to getting long-acting injection on poor. Hospital course: 03/04/25: Restart risperidone 3 mg at bedtime for psychosis. 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 We will wean off table of when symptoms decreased. 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 We will discuss with mom in detail regarding ENRIQUE on risperidone Consta or Uzydi. At this time he wants the shot for once a month. In the meantime we will have him taking risperidone probably increase over the weekend up to 4 mg/day. 03/05: Increase Risperdal to 4 mg HS 03/07: Active on unit. attending groups. Patient reports feeling good ; declined risperidal last night. pt stated, I stopped taking the medication because I'm sleeping better . Pt educated regarding importance of medication compliance. per nursing, pt slept 7 hours last night. denies SI/HI/VH/AH. Continue current tx plan. Plan Patient on 15 minute checks for safety. Admitted to . CV. He placed on single room due to paranoid thoughts and somewhat confused going to different people rooms. Work with treatment team to do collateral and referral for aftercare. We reinforced the negative effects on marijuana when he is more clear. Patient is medically [place] [facility] unremarkable labs work and EKG is within normal limits. Patient educated on: diagnosis and medication risk/benefits Reason for continued inpatient stay Substantial Risk for: med/psych decompensation Time Spent With Patient Time: Total time managing care of this patient today _20___ minutes.
[2025-03-07 20:00] VITALS: BP 118/67; PULSE 62; RESP 18; TEMP 36.4; O2SAT 99
[2025-03-08 07:54] VITALS: BP 117/65; PULSE 85; RESP 18; TEMP 36.6; O2SAT 97
--- NOTE | 2025-03-08 14:12 | P.PNPSI_ITS ---
Subjective Subjective Date of Service: 03/08/25 Reason For Visit: Schizophrenia Subjective Notes: Conditional Voluntary Healthcare Proxy: No Guardianship: No Medical Problems Affecting Mental Status: No Interim History: Medical record and nursing notes reviewed; case discussed during rounds with team, and met with patient for supportive therapy/psychoeducation, as well as medication management. Met with patient in the group room, reports he slept well but having nasal congestion. Appetite is good mood was okay denies suicidal thoughts. Denies any safety concerns. Some thought blocks and reports feeling paranoid. He still thinking that people coming to his room at home. He reports feeling disorganized but not able to give details of how what he feel more disorganized on. Remind patient that he needs to take medication consistently in order to be stable. He continued to be interested in long-acting injection. We discussed about medication change to increase total risperidone up to 5 mg in divided dose. 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 We will reach out to mom to update regarding treatment plan. Medication Compliance: Yes Side effects from medications: No Attending Groups: Intermittent Review of Systems Acute medical concerns: No Medical Review of Systems: unchanged Review of Systems Review of Systems Constitutional: Denies fatigue and Denies fever(s) Cardiovascular: Denies chest pain and Denies dyspnea Respiratory: Denies dyspnea Gastrointestinal: Denies abdominal pain Psychiatric: denies suicidal ideation Endocrine: Denies fatigue Yes all other systems are reviewed and are negative Mental Status Exam Mental Status Exam Patient Appearance: Appropriate Patient Orientation: Person, Place, Time and Situation Level of Consciousness: Awake and Alert Patient Behavior: Appropriate, Guarded and Cooperative Mood Description: Calm Affect Description: Blunted Ability to Follow Directions: Good Speech Pattern: Clear Memory Description: Intact Hallucinations: None Delusions: Not Present Thought Process: Intact Thought Content: positive for Intact Judgement: Poor Diagnostics Vital Signs (24Hr): Vital Signs - 24 hr 03/07/25 20:00 03/08/25 07:54 Temperature 97.6 F 97.8 F Pulse Rate 62 85 Respiratory Rate 18 18 Blood Pressure 118/67 117/65 Pulse Oximetry 99 97 Oxygen Delivery Method Room Air Room Air BMI result Body Mass Index 21.9 Labs 03/03/25 12:43 03/03/25 12:43 Medications Medications Current Medications Acetaminophen (Acetaminophen 325 Mg Tablet) 650 mg PO Q6H PRN PRN Reason: Headache/Pain, Scale 1-10 Al Hydroxide/Mg Hydroxide (Magnesium Hydrox/Alum Hydrox 30 Ml Oral.Susp) 30 ml PO Q6H PRN PRN Reason: Heartburn/Nausea Hydroxyzine HCl (Hydroxyzine Hcl 25 Mg Tablet) 25 mg PO Q6H PRN PRN Reason: mild anxiety Last Admin: 03/08/25 12:36 Dose: 25 mg Lorazepam (Lorazepam 0.5 Mg Tablet) 0.5 mg PO BID SALVATORE Magnesium Hydroxide (Milk Of Magnesia 30 Ml Oral.Susp) 30 ml PO DAILY PRN PRN Reason: Constipation Nicotine Polacrilex (Nicotine Polacrilex 2 Mg Gum) 4 mg BUCCAL Q2H PRN PRN Reason: Nicotine Cravings Risperidone (Risperidone 2 Mg Tablet) 2 mg PO DAILY SALVATORE Risperidone (Risperidone 3 Mg Tablet) 3 mg PO BEDTIME SALVATORE Risperidone (Risperidone 0.5 Mg Tablet) 0.5 mg PO BID PRN PRN Reason: Psychosis Trazodone HCl (Trazodone Hcl 50 Mg Tablet) 50 mg PO BEDTIME PRN PRN Reason: Insomnia Allergies Allergies Allergy/AdvReac Type Severity Reaction Status Date / Time Unable to Assess Allergy Verified 03/03/25 12:25 Assessment & Plan Assessment & Plan (1) Schizophrenia: Qualifiers: Schizophrenia type: unspecified Qualified Code(s): F20.9 - Schizophrenia, unspecified Status: Acute Code(s): F20.9 - Schizophrenia, unspecified (2) Marijuana abuse, continuous: Status: Acute Code(s): F12.10 - Cannabis abuse, uncomplicated Plan Plan: HPI: Patient is a 20 year old assigned male at with a history of schizophrenia presenting to the emergency department today with disorganized behavior. Patient states that he just wants a eastman and someone to fix his hair. Patient's family states that the patient is not taking his medication and has been acting erratically.He was evaluated at his home after his mom called regarding worsening behavior. Stopped taking medication after discharge from on 02/18. Increased marijuana use. -menstruate bizarre behavior at home since past Friday, become more paranoid and thought blocks, rapid decompensation. Increased paranoid behavior. This is 2nd inpatient admission in a very short period of time. (it was here from February 13 to February 18). Increase marijuana use which may contribute to his paranoid thoughts and behavior changes Formulation/clinical reasoning: Family has safety concern regarding the rapid decompensation after stopped taking medication. He was prescribed risperidone 3 mg at bedtime. Not follow-up with outpatient provider for aftercare. Increased marijuana use. The combination of not taking medication and substance use with carrying of schizophrenic diagnosis, lead to rapid decompensate. Increase thought blocks, increased paranoid thoughts, not eating and sleeping well lately. Given above information, he will be benefit in inpatient level of care. We will monitor and restart auto medication with plan to getting long-acting injection on poor. Hospital course: 03/04/25: Restart risperidone 3 mg at bedtime for psychosis. 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 We will wean off table of when symptoms decreased. 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 We will discuss with mom in detail regarding ENRIQUE on risperidone Consta or Uzydi. At this time he wants the shot for once a month. In the meantime we will have him taking risperidone probably increase over the weekend up to 4 mg/day. 03/05: Increase Risperdal to 4 mg HS 03/07: Active on unit. attending groups. Patient reports feeling good ; declined risperidal last night. pt stated, I stopped taking the medication because I'm sleeping better . Pt educated regarding importance of medication compliance. per nursing, pt slept 7 hours last night. denies SI/HI/VH/AH. Continue current tx plan. 03/08/25: Resume care. Encourage patient to take medication consistently as he refused risperidone tonight before last night. He agreed to get risperidone up to 5 mg to target paranoid psychotic symptoms. Also start Ativan 0.5 twice a day with plan to taper him off when he has less thought blocks. Pleasant and cooperative upon approach. No other safety concerns besides being paranoid. Increase risperidone from 4 mg at bedtime to 5 total of mg in divided dose : 2 mg in the morning and 3 mg at bedtime. Start Ativan 0.5 twice a day for catatonic. Plans to taper down on Ativan and offer long-acting injection when target symptoms improve and tolerate to the p.o. medication. Plan Patient on 15 minute checks for safety. Admitted to . CV. He placed on single room due to paranoid thoughts. We will reach out to mom to update mom regarding medication plans. Work with treatment team to do collateral and referral for aftercare. We reinforced the negative effects on marijuana when he is more clear. Patient is medically clear from [facility] [place]. unremarkable labs work and EKG is within normal limits. Patient educated on: medication risk/benefits and therapeutic strategies Informed Consent: further education needed Reason for continued inpatient stay Substantial Risk for: med/psych decompensation Time Spent With Patient Time: Total time managing care of this patient today ____ minutes.
[2025-03-08 20:00] VITALS: BP 122/58; PULSE 84; RESP 18; TEMP 36.6; O2SAT 98
[2025-03-09 08:25] VITALS: BP 129/57; PULSE 85; RESP 18; TEMP 36.2; O2SAT 99
--- NOTE | 2025-03-09 09:40 | P.PNPSI_ITS ---
Subjective Subjective Date of Service: 03/09/25 Reason For Visit: Schizophrenia Subjective Notes: Conditional Voluntary Healthcare Proxy: No Guardianship: No Medical Problems Affecting Mental Status: No Interim History: Medical record and nursing notes reviewed; case discussed during rounds with team, and met with patient for supportive therapy/psychoeducation, as well as medication management. Meet with patient today in the OT room. He shower after lunch. Was eating ice cream while be on one-to-one assessment. Denies suicidal thoughts homicidal thoughts and voices. Reports less paranoid. Sleep well but having some nasal congestion that wake him up at night but good appetite. Reports anxiety is not much but rated 6/10. Deny depression. Denies side effects. He does not remember what medication we changed yesterday. Remind patient that he has p.r.n. risperidone for severe anxiety agitation and if he needs medication for insomnia trazodone is available. Receptive to the plan when reminded him. He also have verbal consent to for this provider to talk to his mom. Call mom left voice message regarding information medication plan Medication Compliance: Yes Side effects from medications: No Attending Groups: Intermittent (Reports intermittently going to groups but sometimes anxiety is too bad not allow him to do so) Review of Systems Acute medical concerns: No Medical Review of Systems: unchanged Review of Systems Review of Systems Constitutional: Denies fatigue and Denies fever(s) Cardiovascular: Denies chest pain and Denies dyspnea Respiratory: Denies dyspnea but report nasal congesntion Gastrointestinal: Denies abdominal pain Psychiatric: denies suicidal ideation Endocrine: Denies fatigue Yes all other systems are reviewed and are negative Mental Status Exam Mental Status Exam Patient Appearance: Appropriate Patient Orientation: Person, Place, Time and Situation Level of Consciousness: Awake and Alert Patient Behavior: Appropriate, Cooperative and Good Eye Contact Mood Description: Appropriate and Anxious Affect Description: Anxious and Blunted Ability to Follow Directions: Good Speech Pattern: Clear and Appropriate Memory Description: Intact Hallucinations: None Delusions: Not Present Thought Process: Intact Thought Content: positive for Intact and positive for [place] Depressive Symptoms: Increased Anxiety Judgement: Poor Diagnostics Vital Signs (24Hr): Vital Signs - 24 hr 03/08/25 20:00 03/09/25 08:25 Temperature 97.8 F 97.2 F Pulse Rate 84 85 Respiratory Rate 18 18 Blood Pressure 122/58 L 129/57 L Pulse Oximetry 98 99 Oxygen Delivery Method Room Air Room Air BMI result Body Mass Index 21.9 Labs 03/03/25 12:43 03/03/25 12:43 Medications Medications Current Medications Acetaminophen (Acetaminophen 325 Mg Tablet) 650 mg PO Q6H PRN PRN Reason: Headache/Pain, Scale 1-10 Last Admin: 03/09/25 03:13 Dose: 650 mg Al Hydroxide/Mg Hydroxide (Magnesium Hydrox/Alum Hydrox 30 Ml Oral.Susp) 30 ml PO Q6H PRN PRN Reason: Heartburn/Nausea Hydroxyzine HCl (Hydroxyzine Hcl 25 Mg Tablet) 25 mg PO Q6H PRN PRN Reason: mild anxiety Last Admin: 03/09/25 03:13 Dose: 25 mg Lorazepam (Lorazepam 0.5 Mg Tablet) 0.5 mg PO BID ON LICENSE OF [facility] Last Admin: 03/09/25 08:14 Dose: 0.5 mg Magnesium Hydroxide (Milk Of Magnesia 30 Ml Oral.Susp) 30 ml PO DAILY PRN PRN Reason: Constipation Nicotine Polacrilex (Nicotine Polacrilex 2 Mg Gum) 4 mg BUCCAL Q2H PRN PRN Reason: Nicotine Cravings Risperidone (Risperidone 2 Mg Tablet) 2 mg PO DAILY ON LICENSE OF [facility] Last Admin: 03/09/25 08:14 Dose: 2 mg Risperidone (Risperidone 3 Mg Tablet) 3 mg PO BEDTIME SALVATORE Last Admin: 03/08/25 20:39 Dose: 3 mg Risperidone (Risperidone 0.5 Mg Tablet) 0.5 mg PO BID PRN PRN Reason: Psychosis Trazodone HCl (Trazodone Hcl 50 Mg Tablet) 50 mg PO BEDTIME PRN PRN Reason: Insomnia Allergies Allergies Allergy/AdvReac Type Severity Reaction Status Date / Time Unable to Assess Allergy Verified 03/03/25 12:25 Assessment & Plan Assessment & Plan (1) Schizophrenia: Qualifiers: Schizophrenia type: unspecified Qualified Code(s): F20.9 - Schizophrenia, unspecified Status: Acute Code(s): F20.9 - Schizophrenia, unspecified (2) Marijuana abuse, continuous: Status: Acute Code(s): F12.10 - Cannabis abuse, uncomplicated Plan Plan: HPI: Patient is a 20 year old assigned male at with a history of schizophrenia presenting to the emergency department today with disorganized behavior. Patient states that he just wants a eastman and someone to fix his hair. Patient's family states that the patient is not taking his medication and has been acting erratically.He was evaluated at his home after his mom called regarding worsening behavior. Stopped taking medication after discharge from on 02/18. Increased marijuana use. -menstruate bizarre behavior at home since past Friday, become more paranoid and thought blocks, rapid decompensation. Increased paranoid behavior. This is 2nd inpatient admission in a very short period of time. (it was here from February 13 to February 18). Increase marijuana use which may contribute to his paranoid thoughts and behavior changes Formulation/clinical reasoning: Family has safety concern regarding the rapid decompensation after stopped taking medication. He was prescribed risperidone 3 mg at bedtime. Not follow-up with outpatient provider for aftercare. Increased marijuana use. The combination of not taking medication and substance use with carrying of schizophrenic diagnosis, lead to rapid decompensate. Increase thought blocks, increased paranoid thoughts, not eating and sleeping well lately. Given above information, he will be benefit in inpatient level of care. We will monitor and restart auto medication with plan to getting long-acting injection on poor. Hospital course: 03/04/25: Restart risperidone 3 mg at bedtime for psychosis. 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 We will wean off table of when symptoms decreased. 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 We will discuss with mom in detail regarding ENRIQUE on risperidone Consta or Uzydi. At this time he wants the shot for once a month. In the meantime we will have him taking risperidone probably increase over the weekend up to 4 mg/day. 03/05: Increase Risperdal to 4 mg HS 03/07: Active on unit. attending groups. Patient reports feeling good ; declined risperidal last night. pt stated, I stopped taking the medication because I'm sleeping better . Pt educated regarding importance of medication compliance. per nursing, pt slept 7 hours last night. denies SI/HI/VH/AH. Continue current tx plan. 03/08/25: Resume care. Encourage patient to take medication consistently as he refused risperidone tonight before last night. He agreed to get risperidone up to 5 mg to target paranoid psychotic symptoms. Also start Ativan 0.5 twice a day with plan to taper him off when he has less thought blocks. Pleasant and cooperative upon approach. No other safety concerns besides being paranoid. Increase risperidone from 4 mg at bedtime to 5 total of mg in divided dose : 2 mg in the morning and 3 mg at bedtime. Start Ativan 0.5 twice a day for catatonic. Plans to taper down on Ativan and offer long-acting injection when target symptoms improve and tolerate to the p.o. medication. 03/09/25: Continued to improve in psychosis symptoms, reports anxiety but deny depression. No ADLs issue shower this morning. Compliant with medication. Nasal congestion interfere with sleep. Other Robitussin for cough or congestion PRN. Call mom INOCENCIO at [phone]. Alee . Regarding medication plan. Discussed with the pharmacy for potential long-acting injection. Either do Invega Sustenna or risperidone Consta. We do not carry Uzydy ENRIQUE. Plan Patient on 15 minute checks for safety. Admitted to . CV. He placed on single room due to paranoid thoughts. We will reach out to mom to update mom regarding medication plans. Left voice message awaiting for mom to call back. Work with treatment team to do collateral and referral for aftercare. We reinforced the negative effects on marijuana when he is more clear. Patient is medically clear [place] [facility]. unremarkable labs work and EKG is within normal limits. Patient educated on: medication risk/benefits and therapeutic strategies Informed Consent: further education needed Reason for continued inpatient stay Substantial Risk for: med/psych decompensation Time Spent With Patient Time: Total time managing care of this patient today ____ minutes.
[2025-03-09] MEDS: guaiFENesin 200 MG/10 ML 10 ML LIQUID PO ×2 (16:38→22:25)
[2025-03-09 20:00] VITALS: BP 122/60; PULSE 80; RESP 18; TEMP 36; O2SAT 97
[2025-03-10 07:00] VITALS: BMI 23.8
[2025-03-10 08:00] VITALS: BP 129/63; PULSE 74; RESP 18; TEMP 36.4; O2SAT 99
[2025-03-10] MEDS: Sodium Chloride 0.65 % Nasal 44 ML SPRBTL 1 SPRAY NOSTRIL-B ×2 (13:10→17:47)
--- NOTE | 2025-03-10 15:14 | HO.PSYCHPN ---
Subjective Subjective Date of Service: 03/10/25 Reason For Visit: Schizophrenia Subjective Notes: Conditional Voluntary Healthcare Proxy: No Guardianship: No Medical Problems Affecting Mental Status: No Interim History: Medical record and nursing notes reviewed; case discussed during rounds with team, and met with patient for supportive therapy/psychoeducation, as well as medication management. Patient slept most of the night and was medication compliant. Meet with him in his room. Reports mood is sleepy and congestion . He appears to be sleepy during assessment. However been observe talk to the nurses smile and happy in the sarabia. Reports to the nurse about the medications plan that I review with him earlier. Seems better in memory cognitive. Thought blocks but improved. Paranoid thoughts has been improve. He has not talk about someone keep going to his room at home. Deny any thoughts of feeling someone coming to his room here in the hospital are poisoning his food. Deny any side effects. Deny any other safety concerns. He is receptive to the medication plan of risperidone increased and long-acting injection 1 or 2 days after Medication Compliance: Yes Side effects from medications: No Attending Groups: Intermittent Review of Systems Acute medical concerns: No Medical Review of Systems: unchanged Review of Systems Review of Systems Constitutional: Denies fatigue and Denies fever(s) Cardiovascular: Denies chest pain and Denies dyspnea Respiratory: Denies dyspnea but report nasal congesntion Gastrointestinal: Denies abdominal pain Psychiatric: denies suicidal ideation Endocrine: Denies fatigue Yes all other systems are reviewed and are negative Mental Status Exam Mental Status Exam Patient Appearance: Appropriate Patient Orientation: Person, Place, Time and Situation Level of Consciousness: Awake and Alert Patient Behavior: Appropriate, Cooperative and Good Eye Contact Mood Description: Appropriate and Anxious Affect Description: Anxious and Blunted Ability to Follow Directions: Good Speech Pattern: Clear and Appropriate Memory Description: Intact Hallucinations: None Delusions: Not Present Thought Process: Intact Thought Content: positive for Intact, positive for [place], positive for Thought Blocking and positive for Slowed Thinking Depressive Symptoms: Increased Anxiety Judgement: Fair Diagnostics Vital Signs (24Hr): Vital Signs - 24 hr 03/09/25 20:00 03/10/25 08:00 Temperature 96.8 F 97.5 F Pulse Rate 80 74 Respiratory Rate 18 18 Blood Pressure 122/60 129/63 Pulse Oximetry 97 99 Oxygen Delivery Method Room Air Room Air BMI result Body Mass Index 23.8 Labs 03/03/25 12:43 03/03/25 12:43 Medications Medications Current Medications Acetaminophen (Acetaminophen 325 Mg Tablet) 650 mg PO Q6H PRN PRN Reason: Headache/Pain, Scale 1-10 Last Admin: 03/09/25 03:13 Dose: 650 mg Al Hydroxide/Mg Hydroxide (Magnesium Hydrox/Alum Hydrox 30 Ml Oral.Susp) 30 ml PO Q6H PRN PRN Reason: Heartburn/Nausea Guaifenesin (Guaifenesin 200 Mg/10 Ml 10 Ml Liquid) 10 ml PO Q6H PRN PRN Reason: Cough/congestion Last Admin: 03/09/25 22:25 Dose: 10 ml Hydroxyzine HCl (Hydroxyzine Hcl 25 Mg Tablet) 25 mg PO Q6H PRN PRN Reason: mild anxiety Last Admin: 03/10/25 10:41 Dose: 25 mg Lorazepam (Lorazepam 0.5 Mg Tablet) 0.5 mg PO BID SALVATORE Last Admin: 03/10/25 08:20 Dose: 0.5 mg Magnesium Hydroxide (Milk Of Magnesia 30 Ml Oral.Susp) 30 ml PO DAILY PRN PRN Reason: Constipation Nicotine Polacrilex (Nicotine Polacrilex 2 Mg Gum) 4 mg BUCCAL Q2H PRN PRN Reason: Nicotine Cravings Risperidone (Risperidone 0.5 Mg Tablet) 0.5 mg PO BID PRN PRN Reason: Psychosis Risperidone (Risperidone 3 Mg Tablet) 3 mg PO BID SALVATORE Sodium Chloride (Sodium Chloride 0.65 % Nasal 44 Ml Sprbtl) 1 spray NOSTRIL-B Q4H PRN PRN Reason: Congestion Last Admin: 03/10/25 13:10 Dose: 1 spray Trazodone HCl (Trazodone Hcl 50 Mg Tablet) 50 mg PO BEDTIME PRN PRN Reason: Insomnia Last Admin: 03/09/25 20:59 Dose: 50 mg Allergies Allergies Allergy/AdvReac Type Severity Reaction Status Date / Time Unable to Assess Allergy Verified 03/03/25 12:25 Assessment & Plan Assessment & Plan (1) Schizophrenia: Qualifiers: Schizophrenia type: unspecified Qualified Code(s): F20.9 - Schizophrenia, unspecified Status: Acute Code(s): F20.9 - Schizophrenia, unspecified (2) Marijuana abuse, continuous: Status: Acute Code(s): F12.10 - Cannabis abuse, uncomplicated Plan Plan: HPI: Patient is a 20 year old assigned male at with a history of schizophrenia presenting to the emergency department today with disorganized behavior. Patient states that he just wants a eastman and someone to fix his hair. Patient's family states that the patient is not taking his medication and has been acting erratically.He was evaluated at his home after his mom called regarding worsening behavior. Stopped taking medication after discharge from on 02/18. Increased marijuana use. -menstruate bizarre behavior at home since past Friday, become more paranoid and thought blocks, rapid decompensation. Increased paranoid behavior. This is 2nd inpatient admission in a very short period of time. (it was here from February 13 to February 18). Increase marijuana use which may contribute to his paranoid thoughts and behavior changes Formulation/clinical reasoning: Family has safety concern regarding the rapid decompensation after stopped taking medication. He was prescribed risperidone 3 mg at bedtime. Not follow-up with outpatient provider for aftercare. Increased marijuana use. The combination of not taking medication and substance use with carrying of schizophrenic diagnosis, lead to rapid decompensate. Increase thought blocks, increased paranoid thoughts, not eating and sleeping well lately. Given above information, he will be benefit in inpatient level of care. We will monitor and restart auto medication with plan to getting long-acting injection on poor. Hospital course: 03/04/25: Restart risperidone 3 mg at bedtime for psychosis. 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 We will wean off table of when symptoms decreased. 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 We will discuss with mom in detail regarding ENRIQUE on risperidone Consta or Ubrandii. At this time he wants the shot for once a month. In the meantime we will have him taking risperidone probably increase over the weekend up to 4 mg/day. 03/05: Increase Risperdal to 4 mg HS 03/07: Active on unit. attending groups. Patient reports feeling good ; declined risperidal last night. pt stated, I stopped taking the medication because I'm sleeping better . Pt educated regarding importance of medication compliance. per nursing, pt slept 7 hours last night. denies SI/HI/VH/AH. Continue current tx plan. 03/08/25: Resume care. Encourage patient to take medication consistently as he refused risperidone tonight before last night. He agreed to get risperidone up to 5 mg to target paranoid psychotic symptoms. Also start Ativan 0.5 twice a day with plan to taper him off when he has less thought blocks. Pleasant and cooperative upon approach. No other safety concerns besides being paranoid. Increase risperidone from 4 mg at bedtime to 5 total of mg in divided dose : 2 mg in the morning and 3 mg at bedtime. Start Ativan 0.5 twice a day for catatonic. Plans to taper down on Ativan and offer long-acting injection when target symptoms improve and tolerate to the p.o. medication. 03/09/25: Continued to improve in psychosis symptoms, reports anxiety but deny depression. No ADLs issue shower this morning. Compliant with medication. Nasal congestion interfere with sleep. Other Robitussin for cough or congestion PRN. Call mom INOCENCIO at [phone]. Alee LANIER. Regarding medication plan. Discussed with the pharmacy for potential long-acting injection. Either do Invega Sustenna or risperidone Consta. We do not carry Uzydy ENRIQUE. 03/10/25: Continued to improve in psychosis, thought blocks but improved, having better affect and emotion on his face, smile and joking with staff. Denies any side effects from medications. He has been sleeping good and been eating okay. Some nasal congestion continue. Orders nasal spray and Robitussin for cough congestion PRN. Encouraged to utilize them to help with the symptoms. Not hearing back from mom yet. Per mom when she last spoke to social service assistant, she thinks patient is not much improved. However in the past couple of days he has been better with paranoid thoughts. Denies auto safety concerns. Receptive with the plan of risperidone go up to 6 mg in divided dosage for psychosis. Then long-acting injection to follow. He expressed wanted to get Invega Sustenna which is monthly supply so he can be better with medication adherence. Plan Patient on 15 minute checks for safety. Admitted to . CV. He placed on single room due to paranoid thoughts. We will reach out to mom to update mom regarding medication plans. Left voice message awaiting for mom to call back. We will potential to offer Invega Sustenna 234 over the weekends if the patient tolerate well with the p.o. risperidone with dose increased. We will order prolactin level as he is on risperidone put him at risk. Work with treatment team to do collateral and referral for aftercare. We reinforced the negative effects on marijuana when he is more clear. Patient is medically clear from [facility]. unremarkable labs work and EKG is within normal limits. Patient educated on: medication risk/benefits and therapeutic strategies Informed Consent: understands Reason for continued inpatient stay Substantial Risk for: med/psych decompensation Time Spent With Patient Time: Total time managing care of this patient today ____ minutes.
[2025-03-10 20:00] VITALS: BP 136/65; PULSE 85; TEMP 37.6; O2SAT 98
[2025-03-11] MEDS: Sodium Chloride 0.65 % Nasal 44 ML SPRBTL 1 SPRAY NOSTRIL-B ×2 (05:26→12:34)
[2025-03-11 08:14] VITALS: BP 136/60; PULSE 72; RESP 16; TEMP 37.1; O2SAT 97
--- NOTE | 2025-03-11 09:56 | HO.PSYCHPN ---
Subjective Subjective Date of Service: 03/11/25 Reason For Visit: Schizophrenia Subjective Notes: Conditional Voluntary Healthcare Proxy: No Guardianship: No Medical Problems Affecting Mental Status: No Interim History: Medical record and nursing notes reviewed; case discussed during rounds with team, and met with patient for supportive therapy/psychoeducation, as well as medication management. Patient slept well for 7 slightly good appetite, was medication compliant, continued to improve in thought blocks and psychosis, reports less anxious today, denies depression or agitated feeling. Nasal congestion has been reduced. Remind patient to take PRNs to help with the symptoms. Met with patient twice a day to address the prolactin level elevated which is impossible that I can keep him at 6 mg on risperidone. Explained the side effects of elevated prolactin level. Explained that Abilify 2 mg will be given to help reduce prolactin level. Explained that risperidone will be lowered down to 5 back to his dose yesterday. And we will recheck prolactin level by Friday. We will hold the long-acting injection until further. Denies any safety concerns. Improving in psychosis and thought blocks. Brighter affect when approached. Medication Compliance: Yes Side effects from medications: No Attending Groups: Intermittent Review of Systems Acute medical concerns: No Medical Review of Systems: unchanged Review of Systems Review of Systems Constitutional: Denies fatigue and Denies fever(s) Cardiovascular: Denies chest pain and Denies dyspnea Respiratory: Denies dyspnea but report nasal congesntion Gastrointestinal: Denies abdominal pain Psychiatric: denies suicidal ideation Endocrine: Denies fatigue Yes all other systems are reviewed and are negative Mental Status Exam Mental Status Exam Patient Appearance: Appropriate Patient Orientation: Person, Place, Time and Situation Level of Consciousness: Awake and Alert Patient Behavior: Appropriate, Cooperative and Good Eye Contact Mood Description: Appropriate and Anxious Affect Description: Anxious and Blunted Ability to Follow Directions: Good Speech Pattern: Clear and Appropriate Memory Description: Intact Hallucinations: None Delusions: Not Present Thought Process: Intact Thought Content: positive for Intact, positive for [place], positive for Thought Blocking and positive for Slowed Thinking Judgement: Fair Diagnostics Vital Signs (24Hr): Vital Signs - 24 hr 03/10/25 20:00 03/11/25 08:14 Temperature 99.7 F 98.8 F Pulse Rate 85 72 Respiratory Rate 16 Blood Pressure 136/65 136/60 Pulse Oximetry 98 97 Oxygen Delivery Method Room Air Room Air BMI result Body Mass Index 23.8 Labs 03/03/25 12:43 03/03/25 12:43 Labs: Laboratory Results - last 48 hr 03/10/25 16:21 Prolactin 25.9 H Medications Medications Current Medications Acetaminophen (Acetaminophen 325 Mg Tablet) 650 mg PO Q6H PRN PRN Reason: Headache/Pain, Scale 1-10 Last Admin: 03/09/25 03:13 Dose: 650 mg Al Hydroxide/Mg Hydroxide (Magnesium Hydrox/Alum Hydrox 30 Ml Oral.Susp) 30 ml PO Q6H PRN PRN Reason: Heartburn/Nausea Guaifenesin (Guaifenesin 200 Mg/10 Ml 10 Ml Liquid) 10 ml PO Q6H PRN PRN Reason: Cough/congestion Last Admin: 03/09/25 22:25 Dose: 10 ml Hydroxyzine HCl (Hydroxyzine Hcl 25 Mg Tablet) 25 mg PO Q6H PRN PRN Reason: mild anxiety Last Admin: 03/10/25 10:41 Dose: 25 mg Lorazepam (Lorazepam 0.5 Mg Tablet) 0.5 mg PO BID [facility] Last Admin: 03/11/25 08:48 Dose: 0.5 mg Magnesium Hydroxide (Milk Of Magnesia 30 Ml Oral.Susp) 30 ml PO DAILY PRN PRN Reason: Constipation Nicotine Polacrilex (Nicotine Polacrilex 2 Mg Gum) 4 mg BUCCAL Q2H PRN PRN Reason: Nicotine Cravings Risperidone (Risperidone 0.5 Mg Tablet) 0.5 mg PO BID PRN PRN Reason: Psychosis Risperidone (Risperidone 3 Mg Tablet) 3 mg PO BID [facility] Last Admin: 03/11/25 08:48 Dose: 3 mg Sodium Chloride (Sodium Chloride 0.65 % Nasal 44 Ml Sprbtl) 1 spray NOSTRIL-B Q4H PRN PRN Reason: Congestion Last Admin: 03/11/25 05:26 Dose: 1 spray Trazodone HCl (Trazodone Hcl 50 Mg Tablet) 50 mg PO BEDTIME PRN PRN Reason: Insomnia Last Admin: 03/10/25 22:14 Dose: 50 mg Allergies Allergies Allergy/AdvReac Type Severity Reaction Status Date / Time Unable to Assess Allergy Verified 03/03/25 12:25 Assessment & Plan Assessment & Plan (1) Schizophrenia: Qualifiers: Schizophrenia type: unspecified Qualified Code(s): F20.9 - Schizophrenia, unspecified Status: Acute Code(s): F20.9 - Schizophrenia, unspecified (2) Marijuana abuse, continuous: Status: Acute Code(s): F12.10 - Cannabis abuse, uncomplicated Plan Plan: HPI: Patient is a 20 year old assigned male at with a history of schizophrenia presenting to the emergency department today with disorganized behavior. Patient states that he just wants a eastman and someone to fix his hair. Patient's family states that the patient is not taking his medication and has been acting erratically.He was evaluated at his home after his mom called regarding worsening behavior. Stopped taking medication after discharge from on 02/18. Increased marijuana use. -menstruate bizarre behavior at home since past Friday, become more paranoid and thought blocks, rapid decompensation. Increased paranoid behavior. This is 2nd inpatient admission in a very short period of time. (it was here from February 13 to February 18). Increase marijuana use which may contribute to his paranoid thoughts and behavior changes Formulation/clinical reasoning: Family has safety concern regarding the rapid decompensation after stopped taking medication. He was prescribed risperidone 3 mg at bedtime. Not follow-up with outpatient provider for aftercare. Increased marijuana use. The combination of not taking medication and substance use with carrying of schizophrenic diagnosis, lead to rapid decompensate. Increase thought blocks, increased paranoid thoughts, not eating and sleeping well lately. Given above information, he will be benefit in inpatient level of care. We will monitor and restart auto medication with plan to getting long-acting injection on poor. Hospital course: 03/04/25: Restart risperidone 3 mg at bedtime for psychosis. 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 We will wean off table of when symptoms decreased. 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 We will discuss with mom in detail regarding ENRIQUE on risperidone Consta or Uzydi. At this time he wants the shot for once a month. In the meantime we will have him taking risperidone probably increase over the weekend up to 4 mg/day. 03/05: Increase Risperdal to 4 mg HS 03/07: Active on unit. attending groups. Patient reports feeling good ; declined risperidal last night. pt stated, I stopped taking the medication because I'm sleeping better . Pt educated regarding importance of medication compliance. per nursing, pt slept 7 hours last night. denies SI/HI/VH/AH. Continue current tx plan. 03/08/25: Resume care. Encourage patient to take medication consistently as he refused risperidone tonight before last night. He agreed to get risperidone up to 5 mg to target paranoid psychotic symptoms. Also start Ativan 0.5 twice a day with plan to taper him off when he has less thought blocks. Pleasant and cooperative upon approach. No other safety concerns besides being paranoid. Increase risperidone from 4 mg at bedtime to 5 total of mg in divided dose : 2 mg in the morning and 3 mg at bedtime. Start Ativan 0.5 twice a day for catatonic. Plans to taper down on Ativan and offer long-acting injection when target symptoms improve and tolerate to the p.o. medication. 03/09/25: Continued to improve in psychosis symptoms, reports anxiety but deny depression. No ADLs issue shower this morning. Compliant with medication. Nasal congestion interfere with sleep. Other Robitussin for cough or congestion PRN. Call mom INOCENCIO at [phone]. Alee LANIER. Regarding medication plan. Discussed with the pharmacy for potential long-acting injection. Either do Invega Sustenna or risperidone Consta. We do not carry Uzydy ENRIQUE. 03/10/25: Continued to improve in psychosis, thought blocks but improved, having better affect and emotion on his face, smile and joking with staff. Denies any side effects from medications. He has been sleeping good and been eating okay. Some nasal congestion continue. Orders nasal spray and Robitussin for cough congestion PRN. Encouraged to utilize them to help with the symptoms. Not hearing back from mom yet. Per mom when she last spoke to manager social media, she thinks patient is not much improved. However in the past couple of days he has been better with paranoid thoughts. Denies auto safety concerns. Receptive with the plan of risperidone go up to 6 mg in divided dosage for psychosis. Then long-acting injection to follow. He expressed wanted to get Invega Sustenna which is monthly supply so he can be better with medication adherence. 03/11/25: Still has not heard back from his mom. Patient continued to improve in anxiety and psychosis. He does well with risperidone up to 6 mg. However prolactin level elevated 25.9, he is asymptomatic. He is receptive plan that lower risperidone with Abilify 2 mg on brought to help with the level. At this point I do not want to switch him into another antipsychotic as risperidone seems be effective for him. We will hold the long-acting injection planned until further over the weekends. I ordered prolactin level for FridayMarch 14. Patient is receptive to the plan. DC risperidone PRN. Scheduled risperidone down to 5 mg in divided dose. Abilify 2 mg daily at bedtime. We will monitor for any interaction between the 2 antipsychotic medications. No other safety concerns in terms of safety. Case also discussed with Dr. Loya. Plan Patient on 15 minute checks for safety. Admitted to . CV. He placed on single room due to paranoid thoughts. We will reach out to mom to update mom regarding medication plans. Left voice message awaiting for mom to call back. Has not had get yet hear back from mom. We will potential to offer Invega Sustenna 234 over the weekends if the patient tolerate well with the p.o. risperidone with dose increased. However, due to elevated on prolactin level. Long-acting injection will be held until further. Dose reduce. Abilify 2 mg on board. Prolactin level on 03/14 Work with treatment team to do collateral and referral for aftercare. We reinforced the negative effects on marijuana when he is more clear. He states that he does not want or interested in go back to smoke Patient is medically clear from [facility]. unremarkable labs work and EKG is within normal limits. Patient educated on: medication risk/benefits, substance abuse and medical condition Informed Consent: further education needed Reason for continued inpatient stay Substantial Risk for: med/psych decompensation Time Spent With Patient Time: Total time managing care of this patient today ____ minutes.
[2025-03-11 20:00] VITALS: BP 115/60; PULSE 87; RESP 16; TEMP 37; O2SAT 100
[2025-03-12 08:00] VITALS: BP 126/71; PULSE 82; TEMP 36.9; O2SAT 99
--- NOTE | 2025-03-12 17:24 | P.PNPSI_ITS ---
Subjective Subjective Date of Service: 03/12/25 Reason For Visit: Schizophrenia Interim History: Patient seen and discussed with team. He reports feeling improved. Denies side effects with medications. He is sleeping well. Psychosis is improving. More related. Less thought blocking. Denies AVH today but appears somewhat internally preoccupied. Review of Systems Review of Systems Constitutional: Denies fatigue and Denies fever(s) Cardiovascular: Denies chest pain and Denies dyspnea Respiratory: Denies dyspnea but report nasal congesntion Gastrointestinal: Denies abdominal pain Psychiatric: denies suicidal ideation Endocrine: Denies fatigue Yes all other systems are reviewed and are negative Constitutional: Reports no additional constitutional complaints, Denies chills, Denies fever(s) and Denies night sweats Eyes: Reports no additional eye complaints, Denies blurry vision, Denies change in vision, Denies diplopia, Denies eye discharge, Denies loss of vision and Denies eye pain Denies dizziness Cardiovascular: Reports no additional cardiovascular complaints, Denies chest pain, Denies lightheadedness, Denies Loss of Consciousness and Denies dyspnea Respiratory: Reports no additional respiratory complaints and Denies dyspnea Gastrointestinal: Reports no additional gastrointestinal complaints, Denies abdominal pain, Denies melena, Denies hematochezia, Denies change in bowel habits and Denies change in stool character Genitourinary: Reports no additional male genitourinary complaints, Denies hematuria, Denies oliguria, Denies difficulty urinating, Denies dysuria, Denies urinary frequency, Denies urinary hesitancy, Denies urinary incontinence and Denies urinary urgency Musculoskeletal: Reports no additional musculoskeletal complaints, Denies numbness and Denies tingling Denies dizziness, Denies loss of vision, Denies numbness and Denies tingling Psychiatric: Denies homicidal ideation and Denies suicidal ideation Endocrine: Reports no additional endocrine complaints Hematologic/Lymphatic: Reports no additional hematologic/lymphatic complaints Allergic/Immunologic: Reports no additional allergic/immunologic complaints Mental Status Exam Mental Status Exam Narrative: Patient is alert and oriented; behavior is cooperative, calm friendly with mild to moderate anxiety; patient is not in distress; dressed in hospital attire with unkempt hair but adequate hygiene; cover body with blanket while I down in bed mood is described as good and affect incongruent; eye contact appropriate; Speech is slow to respond rate, volume and prosody and not pressured; no psychomotor agitation present; but appear to be thought blocked wiht ?catatonia, thought process is disorganized/confused and not goal directed; Thought content is focused on hair needs to be fixed and focused on obtaining real estate license, not pertinent to relevant topics at times and without any delusional content. He appears to be paranoid paranoid ideation; denies any SI/SIB/HI. Denies AH and there is no evidence of perceptual disturbance. Patient's insight and judgment impaired Patient Appearance: Appropriate Patient Orientation: Person, Place, Time and Situation Level of Consciousness: Awake and Alert Patient Behavior: Appropriate, Cooperative and Good Eye Contact Mood Description: Appropriate and Anxious Affect Description: Anxious and Blunted Patient Cognition Impaired: No Ability to Follow Directions: Good Speech Pattern: Clear and Appropriate Memory Description: Intact Diagnostics Vital Signs (24Hr): Vital Signs - 24 hr 03/11/25 20:00 03/12/25 08:00 Temperature 98.6 F 98.4 F Pulse Rate 87 82 Respiratory Rate 16 Blood Pressure 115/60 126/71 Pulse Oximetry 100 99 Oxygen Delivery Method Room Air Room Air BMI result Body Mass Index 23.8 Labs 03/03/25 12:43 03/03/25 12:43 Labs: Laboratory Results - last 48 hr 03/10/25 16:21 Prolactin 25.9 H Medications Medications Current Medications Acetaminophen (Acetaminophen 325 Mg Tablet) 650 mg PO Q6H PRN PRN Reason: Headache/Pain, Scale 1-10 Last Admin: 03/09/25 03:13 Dose: 650 mg Al Hydroxide/Mg Hydroxide (Magnesium Hydrox/Alum Hydrox 30 Ml Oral.Susp) 30 ml PO Q6H PRN PRN Reason: Heartburn/Nausea Aripiprazole (Aripiprazole 2 Mg Tablet) 2 mg PO BEDTIME [facility] Last Admin: 03/11/25 20:43 Dose: 2 mg Guaifenesin (Guaifenesin 200 Mg/10 Ml 10 Ml Liquid) 10 ml PO Q6H PRN PRN Reason: Cough/congestion Last Admin: 03/09/25 22:25 Dose: 10 ml Hydroxyzine HCl (Hydroxyzine Hcl 25 Mg Tablet) 25 mg PO Q6H PRN PRN Reason: mild anxiety Last Admin: 03/11/25 12:38 Dose: 25 mg Lorazepam (Lorazepam 0.5 Mg Tablet) 0.5 mg PO BID [facility] Last Admin: 03/12/25 08:35 Dose: 0.5 mg Magnesium Hydroxide (Milk Of Magnesia 30 Ml Oral.Susp) 30 ml PO DAILY PRN PRN Reason: Constipation Nicotine Polacrilex (Nicotine Polacrilex 2 Mg Gum) 4 mg BUCCAL Q2H PRN PRN Reason: Nicotine Cravings Risperidone (Risperidone 3 Mg Tablet) 3 mg PO BEDTIME [facility]ORE Last Admin: 03/11/25 20:43 Dose: 3 mg Risperidone (Risperidone 2 Mg Tablet) 2 mg PO DAILY [facility] Last Admin: 03/12/25 08:35 Dose: 2 mg Sodium Chloride (Sodium Chloride 0.65 % Nasal 44 Ml Sprbtl) 1 spray NOSTRIL-B Q4H PRN PRN Reason: Congestion Last Admin: 03/11/25 12:34 Dose: 1 spray Trazodone HCl (Trazodone Hcl 50 Mg Tablet) 50 mg PO BEDTIME PRN PRN Reason: Insomnia Last Admin: 03/10/25 22:14 Dose: 50 mg Allergies Allergies Allergy/AdvReac Type Severity Reaction Status Date / Time Unable to Assess Allergy Verified 03/03/25 12:25 Assessment & Plan Assessment & Plan (1) Schizophrenia: Qualifiers: Schizophrenia type: unspecified Qualified Code(s): F20.9 - Schizophrenia, unspecified Status: Acute Code(s): F20.9 - Schizophrenia, unspecified (2) Marijuana abuse, continuous: Status: Acute Code(s): F12.10 - Cannabis abuse, uncomplicated Plan Plan: HPI: Patient is a 20 year old assigned male at with a history of schizophrenia presenting to the emergency department today with disorganized behavior. Patient states that he just wants a eastman and someone to fix his hair. Patient's family states that the patient is not taking his medication and has been acting erratically.He was evaluated at his home after his mom called regarding worsening behavior. Stopped taking medication after discharge from on 02/18. Increased marijuana use. -menstruate bizarre behavior at home since past Friday, become more paranoid and thought blocks, rapid decompensation. Increased paranoid behavior. This is 2nd inpatient admission in a very short period of time. (it was here from February 13 to February 18). Increase marijuana use which may contribute to his paranoid thoughts and behavior changes Formulation/clinical reasoning: Family has safety concern regarding the rapid decompensation after stopped taking medication. He was prescribed risperidone 3 mg at bedtime. Not follow-up with outpatient provider for aftercare. Increased marijuana use. The combination of not taking medication and substance use with carrying of schizophrenic diagnosis, lead to rapid decompensate. Increase thought blocks, increased paranoid thoughts, not eating and sleeping well lately. Given above information, he will be benefit in inpatient level of care. We will monitor and restart auto medication with plan to getting long-acting injection on poor. Hospital course: 03/04/25: Restart risperidone 3 mg at bedtime for psychosis. 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 We will wean off table of when symptoms decreased. 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 We will discuss with mom in detail regarding ENRIQUE on risperidone Consta or Uzydi. At this time he wants the shot for once a month. In the meantime we will have him taking risperidone probably increase over the weekend up to 4 mg/day. 03/05: Increase Risperdal to 4 mg HS 03/07: Active on unit. attending groups. Patient reports feeling good ; declined risperidal last night. pt stated, I stopped taking the medication because I'm sleeping better . Pt educated regarding importance of medication compliance. per nursing, pt slept 7 hours last night. denies SI/HI/VH/AH. Continue current tx plan. 03/08/25: Resume care. Encourage patient to take medication consistently as he refused risperidone tonight before last night. He agreed to get risperidone up to 5 mg to target paranoid psychotic symptoms. Also start Ativan 0.5 twice a day with plan to taper him off when he has less thought blocks. Pleasant and cooperative upon approach. No other safety concerns besides being paranoid. Increase risperidone from 4 mg at bedtime to 5 total of mg in divided dose : 2 mg in the morning and 3 mg at bedtime. Start Ativan 0.5 twice a day for catatonic. Plans to taper down on Ativan and offer long-acting injection when target symptoms improve and tolerate to the p.o. medication. 03/09/25: Continued to improve in psychosis symptoms, reports anxiety but deny depression. No ADLs issue shower this morning. Compliant with medication. Nasal congestion interfere with sleep. Other Robitussin for cough or congestion PRN. Call mom INOCENCIO at [phone]. Alee . Regarding medication plan. Discussed with the pharmacy for potential long-acting injection. Either do Invega Sustenna or risperidone Consta. We do not carry Uzydy ENRIQUE. 03/10/25: Continued to improve in psychosis, thought blocks but improved, having better affect and emotion on his face, smile and joking with staff. Denies any side effects from medications. He has been sleeping good and been eating okay. Some nasal congestion continue. Orders nasal spray and Robitussin for cough congestion PRN. Encouraged to utilize them to help with the symptoms. Not hearing back from mom yet. Per mom when she last spoke to sr. social media & mobile manager, she thinks patient is not much improved. However in the past couple of days he has been better with paranoid thoughts. Denies auto safety concerns. Receptive with the plan of risperidone go up to 6 mg in divided dosage for psychosis. Then long-acting injection to follow. He expressed wanted to get Invega Sustenna which is monthly supply so he can be better with medication adherence. 03/11/25: Still has not heard back from his mom. Patient continued to improve in anxiety and psychosis. He does well with risperidone up to 6 mg. However prolactin level elevated 25.9, he is asymptomatic. He is receptive plan that lower risperidone with Abilify 2 mg on brought to help with the level. At this point I do not want to switch him into another antipsychotic as risperidone seems be effective for him. We will hold the long-acting injection planned until further over the weekends. I ordered prolactin level for FridayMarch 14. Patient is receptive to the plan. DC risperidone PRN. Scheduled risperidone down to 5 mg in divided dose. Abilify 2 mg daily at bedtime. We will monitor for any interaction between the 2 antipsychotic medications. No other safety concerns in terms of safety. Case also discussed with Dr. Loya. 03/12: Continue current management and treatment plan. Plan Patient on 15 minute checks for safety. Admitted to [facility]. CV. He placed on single room due to paranoid thoughts. We will reach out to mom to update mom regarding medication plans. Left voice message awaiting for mom to call back. Has not had get yet hear back from mom. We will potential to offer Invega Sustenna 234 over the weekends if the patient tolerate well with the p.o. risperidone with dose increased. However, due to elevated on prolactin level. Long-acting injection will be held until further. Dose reduce. Abilify 2 mg on board. Prolactin level on 03/14 Work with treatment team to do collateral and referral for aftercare. We reinforced the negative effects on marijuana when he is more clear. He states that he does not want or interested in go back to smoke Patient is medically clear from [facility]. unremarkable labs work and EKG is within normal limits. Reason for continued inpatient stay Substantial Risk for: inability to function and rapid decompensation Time Spent With Patient Time: Total time managing care of this patient today ____ minutes.
[2025-03-12 19:51] VITALS: BP 142/63; PULSE 87; RESP 18; TEMP -12.7; TEMP 9; O2SAT 97
[2025-03-13 08:00] VITALS: BP 120/58; PULSE 77; TEMP 36.4; O2SAT 94
--- NOTE | 2025-03-13 09:45 | P.PNPSI_ITS ---
Subjective Subjective Date of Service: 03/13/25 Reason For Visit: Schizophrenia Interim History: Cooperative with care. Somewhat guarded and quiet. He remains overall improved. Denies side effects with medications. He is sleeping well. Psychosis improved. More related. Less thought blocking. Denies AVH. Review of Systems Review of Systems Constitutional: Denies fatigue and Denies fever(s) Cardiovascular: Denies chest pain and Denies dyspnea Respiratory: Denies dyspnea but report nasal congesntion Gastrointestinal: Denies abdominal pain Psychiatric: denies suicidal ideation Endocrine: Denies fatigue Yes all other systems are reviewed and are negative Constitutional: Reports no additional constitutional complaints, Denies chills, Denies fever(s) and Denies night sweats Eyes: Reports no additional eye complaints, Denies blurry vision, Denies change in vision, Denies diplopia, Denies eye discharge, Denies loss of vision and Denies eye pain Denies dizziness Cardiovascular: Reports no additional cardiovascular complaints, Denies chest pain, Denies lightheadedness, Denies Loss of Consciousness and Denies dyspnea Respiratory: Reports no additional respiratory complaints and Denies dyspnea Gastrointestinal: Reports no additional gastrointestinal complaints, Denies abdominal pain, Denies melena, Denies hematochezia, Denies change in bowel habits and Denies change in stool character Genitourinary: Reports no additional male genitourinary complaints, Denies hematuria, Denies oliguria, Denies difficulty urinating, Denies dysuria, Denies urinary frequency, Denies urinary hesitancy, Denies urinary incontinence and Denies urinary urgency Musculoskeletal: Reports no additional musculoskeletal complaints, Denies numbness and Denies tingling Denies dizziness, Denies loss of vision, Denies numbness and Denies tingling Psychiatric: Denies homicidal ideation and Denies suicidal ideation Endocrine: Reports no additional endocrine complaints Hematologic/Lymphatic: Reports no additional hematologic/lymphatic complaints Allergic/Immunologic: Reports no additional allergic/immunologic complaints Mental Status Exam Mental Status Exam Narrative: Patient is alert and oriented; behavior is cooperative, calm friendly with mild to moderate anxiety; patient is not in distress; dressed in hospital attire with unkempt hair but adequate hygiene; cover body with blanket while I down in bed mood is described as good and affect incongruent; eye contact appropriate; Speech is slow to respond rate, volume and prosody and not pressured; no psychomotor agitation present; but appear to be thought blocked wiht ?catatonia, thought process is disorganized/confused and not goal directed; Thought content is focused on hair needs to be fixed and focused on obtaining real estate license, not pertinent to relevant topics at times and without any delusional content. He appears to be paranoid paranoid ideation; denies any SI/SIB/HI. Denies AH and there is no evidence of perceptual disturbance. Patient's insight and judgment impaired Patient Appearance: Appropriate Patient Orientation: Person, Place, Time and Situation Level of Consciousness: Awake and Alert Patient Behavior: Appropriate, Cooperative and Good Eye Contact Mood Description: Appropriate and Anxious Affect Description: Anxious and Blunted Patient Cognition Impaired: No Ability to Follow Directions: Good Speech Pattern: Clear and Appropriate Memory Description: Intact Diagnostics Vital Signs (24Hr): Vital Signs - 24 hr 03/12/25 19:51 Temperature 9 F L Pulse Rate 87 Respiratory Rate 18 Blood Pressure 142/63 H Pulse Oximetry 97 Oxygen Delivery Method Room Air BMI result Body Mass Index 23.8 Labs 03/03/25 12:43 03/03/25 12:43 Medications Medications Current Medications Acetaminophen (Acetaminophen 325 Mg Tablet) 650 mg PO Q6H PRN PRN Reason: Headache/Pain, Scale 1-10 Last Admin: 03/09/25 03:13 Dose: 650 mg Al Hydroxide/Mg Hydroxide (Magnesium Hydrox/Alum Hydrox 30 Ml Oral.Susp) 30 ml PO Q6H PRN PRN Reason: Heartburn/Nausea Aripiprazole (Aripiprazole 2 Mg Tablet) 2 mg PO BEDTIME [facility] Last Admin: 03/12/25 21:06 Dose: 2 mg Guaifenesin (Guaifenesin 200 Mg/10 Ml 10 Ml Liquid) 10 ml PO Q6H PRN PRN Reason: Cough/congestion Last Admin: 03/09/25 22:25 Dose: 10 ml Hydroxyzine HCl (Hydroxyzine Hcl 25 Mg Tablet) 25 mg PO Q6H PRN PRN Reason: mild anxiety Last Admin: 03/12/25 21:07 Dose: 25 mg Lorazepam (Lorazepam 0.5 Mg Tablet) 0.5 mg PO BID [facility] Last Admin: 03/13/25 08:34 Dose: 0.5 mg Magnesium Hydroxide (Milk Of Magnesia 30 Ml Oral.Susp) 30 ml PO DAILY PRN PRN Reason: Constipation Nicotine Polacrilex (Nicotine Polacrilex 2 Mg Gum) 4 mg BUCCAL Q2H PRN PRN Reason: Nicotine Cravings Risperidone (Risperidone 3 Mg Tablet) 3 mg PO BEDTIME [facility] Last Admin: 03/12/25 21:06 Dose: 3 mg Risperidone (Risperidone 2 Mg Tablet) 2 mg PO DAILY [facility] Last Admin: 03/13/25 08:34 Dose: 2 mg Sodium Chloride (Sodium Chloride 0.65 % Nasal 44 Ml Sprbtl) 1 spray NOSTRIL-B Q4H PRN PRN Reason: Congestion Last Admin: 03/11/25 12:34 Dose: 1 spray Trazodone HCl (Trazodone Hcl 50 Mg Tablet) 50 mg PO BEDTIME PRN PRN Reason: Insomnia Last Admin: 03/12/25 21:07 Dose: 50 mg Allergies Allergies Allergy/AdvReac Type Severity Reaction Status Date / Time Unable to Assess Allergy Verified 03/03/25 12:25 Assessment & Plan Assessment & Plan (1) Schizophrenia: Qualifiers: Schizophrenia type: unspecified Qualified Code(s): F20.9 - Schizophrenia, unspecified Status: Acute Code(s): F20.9 - Schizophrenia, unspecified (2) Marijuana abuse, continuous: Status: Acute Code(s): F12.10 - Cannabis abuse, uncomplicated Plan Plan: HPI: Patient is a 20 year old assigned male at with a history of schizophrenia presenting to the emergency department today with disorganized behavior. Patient states that he just wants a eastman and someone to fix his hair. Patient's family states that the patient is not taking his medication and has been acting erratically.He was evaluated at his home after his mom called regarding worsening behavior. Stopped taking medication after discharge from on 02/18. Increased marijuana use. -menstruate bizarre behavior at home since past Friday, become more paranoid and thought blocks, rapid decompensation. Increased paranoid behavior. This is 2nd inpatient admission in a very short period of time. (it was here from February 13 to February 18). Increase marijuana use which may contribute to his paranoid thoughts and behavior changes Formulation/clinical reasoning: Family has safety concern regarding the rapid decompensation after stopped taking medication. He was prescribed risperidone 3 mg at bedtime. Not follow-up with outpatient provider for aftercare. Increased marijuana use. The combination of not taking medication and substance use with carrying of schizophrenic diagnosis, lead to rapid decompensate. Increase thought blocks, increased paranoid thoughts, not eating and sleeping well lately. Given above information, he will be benefit in inpatient level of care. We will monitor and restart auto medication with plan to getting long-acting injection on poor. Hospital course: 03/04/25: Restart risperidone 3 mg at bedtime for psychosis. 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 We will wean off table of when symptoms decreased. 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 We will discuss with mom in detail regarding ENRIQUE on risperidone Consta or Uzydi. At this time he wants the shot for once a month. In the meantime we will have him taking risperidone probably increase over the weekend up to 4 mg/day. 03/05: Increase Risperdal to 4 mg HS 03/07: Active on unit. attending groups. Patient reports feeling good ; declined risperidal last night. pt stated, I stopped taking the medication because I'm sleeping better . Pt educated regarding importance of medication compliance. per nursing, pt slept 7 hours last night. denies SI/HI/VH/AH. Continue current tx plan. 03/08/25: Resume care. Encourage patient to take medication consistently as he refused risperidone tonight before last night. He agreed to get risperidone up to 5 mg to target paranoid psychotic symptoms. Also start Ativan 0.5 twice a day with plan to taper him off when he has less thought blocks. Pleasant and cooperative upon approach. No other safety concerns besides being paranoid. Increase risperidone from 4 mg at bedtime to 5 total of mg in divided dose : 2 mg in the morning and 3 mg at bedtime. Start Ativan 0.5 twice a day for catatonic. Plans to taper down on Ativan and offer long-acting injection when target symptoms improve and tolerate to the p.o. medication. 03/09/25: Continued to improve in psychosis symptoms, reports anxiety but deny depression. No ADLs issue shower this morning. Compliant with medication. Nasal congestion interfere with sleep. Other Robitussin for cough or congestion PRN. Call mom INOCENCIO at [phone]. Alee . Regarding medication plan. Discussed with the pharmacy for potential long-acting injection. Either do Invega Sustenna or risperidone Consta. We do not carry Uzydy ENRIQUE. 03/10/25: Continued to improve in psychosis, thought blocks but improved, having better affect and emotion on his face, smile and joking with staff. Denies any side effects from medications. He has been sleeping good and been eating okay. Some nasal congestion continue. Orders nasal spray and Robitussin for cough congestion PRN. Encouraged to utilize them to help with the symptoms. Not hearing back from mom yet. Per mom when she last spoke to social security assessor, she thinks patient is not much improved. However in the past couple of days he has been better with paranoid thoughts. Denies auto safety concerns. Receptive with the plan of risperidone go up to 6 mg in divided dosage for psychosis. Then long-acting injection to follow. He expressed wanted to get Invega Sustenna which is monthly supply so he can be better with medication adherence. 03/11/25: Still has not heard back from his mom. Patient continued to improve in anxiety and psychosis. He does well with risperidone up to 6 mg. However prolactin level elevated 25.9, he is asymptomatic. He is receptive plan that lower risperidone with Abilify 2 mg on brought to help with the level. At this point I do not want to switch him into another antipsychotic as risperidone seems be effective for him. We will hold the long-acting injection planned until further over the weekends. I ordered prolactin level for FridayMarch 14. Patient is receptive to the plan. DC risperidone PRN. Scheduled risperidone down to 5 mg in divided dose. Abilify 2 mg daily at bedtime. We will monitor for any interaction between the 2 antipsychotic medications. No other safety concerns in terms of safety. Case also discussed with Dr. Loya. 03/12: Continue current management and treatment plan. 03/13: Continue current management and treatment plan. Plan Patient on 15 minute checks for safety. Admitted to . [facility]. He placed on single room due to paranoid thoughts. We will reach out to mom to update mom regarding medication plans. Left voice message awaiting for mom to call back. Has not had get yet hear back from mom. We will potential to offer Invega Sustenna 234 over the weekends if the patient tolerate well with the p.o. risperidone with dose increased. However, due to elevated on prolactin level. Long-acting injection will be held until further. Dose reduce. Abilify 2 mg on board. Prolactin level on 03/14 Work with treatment team to do collateral and referral for aftercare. We reinforced the negative effects on marijuana when he is more clear. He states that he does not want or interested in go back to smoke Patient is medically clear from [facility]. unremarkable labs work and EKG is within normal limits. Reason for continued inpatient stay Substantial Risk for: inability to function and rapid decompensation Time Spent With Patient Time: Total time managing care of this patient today ____ minutes.
[2025-03-13 19:50] VITALS: BP 128/60; PULSE 86; TEMP 37.4; O2SAT 98
[2025-03-14 08:00] VITALS: BP 125/58; PULSE 82; RESP 16; TEMP 36.7; O2SAT 99
--- NOTE | 2025-03-14 13:13 | HO.PSYCHPN ---
Subjective Subjective Date of Service: 03/14/25 Reason For Visit: Schizophrenia Interim History: Active on unit. keeping to self.calm, coopertive. Patient reports feeling okay today. Patient reports he is agreeable to have an ENRIQUE; he is focused on discharge. Prolactin level pending. denies SI/HI/VH/AH. Medication Compliance: Yes Mental Status Exam Mental Status Exam Patient Appearance: Appropriate Patient Orientation: Person, Place, Time and Situation Level of Consciousness: Awake and Alert Patient Behavior: Appropriate, Guarded and Cooperative Mood Description: Calm Affect Description: Calm Ability to Follow Directions: Good Speech Pattern: Clear Memory Description: Intact Hallucinations: None Delusions: Not Present Thought Process: Intact Thought Content: positive for Intact Diagnostics Vital Signs (24Hr): Vital Signs - 24 hr 03/13/25 19:50 03/14/25 08:00 Temperature 99.3 F 98.1 F Pulse Rate 86 82 Respiratory Rate 16 Blood Pressure 128/60 125/58 L Pulse Oximetry 98 99 Oxygen Delivery Method Room Air Room Air BMI result Body Mass Index 23.8 Labs 03/03/25 12:43 03/03/25 12:43 Medications Medications Current Medications Acetaminophen (Acetaminophen 325 Mg Tablet) 650 mg PO Q6H PRN PRN Reason: Headache/Pain, Scale 1-10 Last Admin: 03/09/25 03:13 Dose: 650 mg Al Hydroxide/Mg Hydroxide (Magnesium Hydrox/Alum Hydrox 30 Ml Oral.Susp) 30 ml PO Q6H PRN PRN Reason: Heartburn/Nausea Aripiprazole (Aripiprazole 2 Mg Tablet) 2 mg PO BEDTIME [facility] Last Admin: 03/13/25 21:12 Dose: 2 mg Guaifenesin (Guaifenesin 200 Mg/10 Ml 10 Ml Liquid) 10 ml PO Q6H PRN PRN Reason: Cough/congestion Last Admin: 03/09/25 22:25 Dose: 10 ml Hydroxyzine HCl (Hydroxyzine Hcl 25 Mg Tablet) 25 mg PO Q6H PRN PRN Reason: mild anxiety Last Admin: 03/12/25 21:07 Dose: 25 mg Lorazepam (Lorazepam 0.5 Mg Tablet) 0.5 mg PO BID [facility] Last Admin: 03/14/25 08:46 Dose: 0.5 mg Magnesium Hydroxide (Milk Of Magnesia 30 Ml Oral.Susp) 30 ml PO DAILY PRN PRN Reason: Constipation Nicotine Polacrilex (Nicotine Polacrilex 2 Mg Gum) 4 mg BUCCAL Q2H PRN PRN Reason: Nicotine Cravings Risperidone (Risperidone 3 Mg Tablet) 3 mg PO BEDTIME [facility] Last Admin: 03/13/25 21:12 Dose: 3 mg Risperidone (Risperidone 2 Mg Tablet) 2 mg PO DAILY [facility] Last Admin: 03/14/25 08:46 Dose: 2 mg Sodium Chloride (Sodium Chloride 0.65 % Nasal 44 Ml Sprbtl) 1 spray NOSTRIL-B Q4H PRN PRN Reason: Congestion Last Admin: 03/11/25 12:34 Dose: 1 spray Trazodone HCl (Trazodone Hcl 50 Mg Tablet) 50 mg PO BEDTIME PRN PRN Reason: Insomnia Last Admin: 03/13/25 21:12 Dose: 50 mg Allergies Allergies Allergy/AdvReac Type Severity Reaction Status Date / Time Unable to Assess Allergy Verified 03/03/25 12:25 Assessment & Plan Assessment & Plan (1) Schizophrenia: Qualifiers: Schizophrenia type: unspecified Qualified Code(s): F20.9 - Schizophrenia, unspecified Status: Acute Code(s): F20.9 - Schizophrenia, unspecified (2) Marijuana abuse, continuous: Status: Acute Code(s): F12.10 - Cannabis abuse, uncomplicated Plan Plan: HPI: Patient is a 20 year old assigned male at with a history of schizophrenia presenting to the emergency department today with disorganized behavior. Patient states that he just wants a eastman and someone to fix his hair. Patient's family states that the patient is not taking his medication and has been acting erratically.He was evaluated at his home after his mom called regarding worsening behavior. Stopped taking medication after discharge from on 02/18. Increased marijuana use. -menstruate bizarre behavior at home since past Friday, become more paranoid and thought blocks, rapid decompensation. Increased paranoid behavior. This is 2nd inpatient admission in a very short period of time. (it was here from February 13 to February 18). Increase marijuana use which may contribute to his paranoid thoughts and behavior changes Formulation/clinical reasoning: Family has safety concern regarding the rapid decompensation after stopped taking medication. He was prescribed risperidone 3 mg at bedtime. Not follow-up with outpatient provider for aftercare. Increased marijuana use. The combination of not taking medication and substance use with carrying of schizophrenic diagnosis, lead to rapid decompensate. Increase thought blocks, increased paranoid thoughts, not eating and sleeping well lately. Given above information, he will be benefit in inpatient level of care. We will monitor and restart auto medication with plan to getting long-acting injection on poor. Hospital course: 03/04/25: Restart risperidone 3 mg at bedtime for psychosis. 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 We will wean off table of when symptoms decreased. 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 We will discuss with mom in detail regarding ENRIQUE on risperidone Consta or Uzydi. At this time he wants the shot for once a month. In the meantime we will have him taking risperidone probably increase over the weekend up to 4 mg/day. 03/05: Increase Risperdal to 4 mg HS 03/07: Active on unit. attending groups. Patient reports feeling good ; declined risperidal last night. pt stated, I stopped taking the medication because I'm sleeping better . Pt educated regarding importance of medication compliance. per nursing, pt slept 7 hours last night. denies SI/HI/VH/AH. Continue current tx plan. 03/08/25: Resume care. Encourage patient to take medication consistently as he refused risperidone tonight before last night. He agreed to get risperidone up to 5 mg to target paranoid psychotic symptoms. Also start Ativan 0.5 twice a day with plan to taper him off when he has less thought blocks. Pleasant and cooperative upon approach. No other safety concerns besides being paranoid. Increase risperidone from 4 mg at bedtime to 5 total of mg in divided dose : 2 mg in the morning and 3 mg at bedtime. Start Ativan 0.5 twice a day for catatonic. Plans to taper down on Ativan and offer long-acting injection when target symptoms improve and tolerate to the p.o. medication. 03/09/25: Continued to improve in psychosis symptoms, reports anxiety but deny depression. No ADLs issue shower this morning. Compliant with medication. Nasal congestion interfere with sleep. Other Robitussin for cough or congestion PRN. Call mom INOCENCIO at [phone]. Alee . Regarding medication plan. Discussed with the pharmacy for potential long-acting injection. Either do Invega Sustenna or risperidone Consta. We do not carry Uzydy ENRIQUE. 03/10/25: Continued to improve in psychosis, thought blocks but improved, having better affect and emotion on his face, smile and joking with staff. Denies any side effects from medications. He has been sleeping good and been eating okay. Some nasal congestion continue. Orders nasal spray and Robitussin for cough congestion PRN. Encouraged to utilize them to help with the symptoms. Not hearing back from mom yet. Per mom when she last spoke to social services designee, she thinks patient is not much improved. However in the past couple of days he has been better with paranoid thoughts. Denies auto safety concerns. Receptive with the plan of risperidone go up to 6 mg in divided dosage for psychosis. Then long-acting injection to follow. He expressed wanted to get Invega Sustenna which is monthly supply so he can be better with medication adherence. 03/11/25: Still has not heard back from his mom. Patient continued to improve in anxiety and psychosis. He does well with risperidone up to 6 mg. However prolactin level elevated 25.9, he is asymptomatic. He is receptive plan that lower risperidone with Abilify 2 mg on brought to help with the level. At this point I do not want to switch him into another antipsychotic as risperidone seems be effective for him. We will hold the long-acting injection planned until further over the weekends. I ordered prolactin level for FridayMarch 14. Patient is receptive to the plan. DC risperidone PRN. Scheduled risperidone down to 5 mg in divided dose. Abilify 2 mg daily at bedtime. We will monitor for any interaction between the 2 antipsychotic medications. No other safety concerns in terms of safety. Case also discussed with Dr. Loya. 03/12: Continue current management and treatment plan. 03/13: Continue current management and treatment plan. 03/14: Active on unit. keeping to self.calm, coopertive. Patient reports feeling okay today. Patient reports he is agreeable to have an ENRIQUE; he is focused on discharge. Prolactin level pending. denies SI/HI/VH/AH. Continue current tx plan. Plan Patient on 15 minute checks for safety. Admitted to . [facility]. He placed on single room due to paranoid thoughts. We will reach out to mom to update mom regarding medication plans. Left voice message awaiting for mom to call back. Has not had get yet hear back from mom. We will potential to offer Invega Sustenna 234 over the weekends if the patient tolerate well with the p.o. risperidone with dose increased. However, due to elevated on prolactin level. Long-acting injection will be held until further. Dose reduce. Abilify 2 mg on board. Prolactin level on 03/14 Work with treatment team to do collateral and referral for aftercare. We reinforced the negative effects on marijuana when he is more clear. He states that he does not want or interested in go back to smoke Patient is medically [place] [facility] unremarkable labs work and EKG is within normal limits. Patient educated on: diagnosis and medication risk/benefits Reason for continued inpatient stay Substantial Risk for: med/psych decompensation Time Spent With Patient Time: Total time managing care of this patient today _20___ minutes.
[2025-03-14 19:48] VITALS: BP 143/65; PULSE 87; TEMP 36.4; O2SAT 96
[2025-03-15 08:00] VITALS: BP 117/59; PULSE 84; RESP 18; TEMP 36.8; O2SAT 97
--- NOTE | 2025-03-15 14:23 | HO.PSYCHPN ---
Subjective Subjective Date of Service: 03/15/25 Reason For Visit: Schizophrenia Interim History: Calm, cooperative. Patient reports feeling good ; denies any issues at this time. Prolactin level 28.6 on 03/14/25; denies any pain or discharge from nipples. denies SI/HI/VH/AH. Discussed case with Dr. Loya. Medication Compliance: Yes Side effects from medications: No Mental Status Exam Mental Status Exam Patient Appearance: Appropriate Patient Orientation: Person, Place, Time and Situation Level of Consciousness: Awake and Alert Patient Behavior: Appropriate and Cooperative Mood Description: Calm Affect Description: Calm Patient Cognition Impaired: No Ability to Follow Directions: Good Speech Pattern: Clear Memory Description: Intact Hallucinations: None Delusions: Not Present Thought Process: Intact Thought Content: positive for Intact Diagnostics Vital Signs (24Hr): Vital Signs - 24 hr 03/14/25 19:48 03/15/25 08:00 Temperature 97.5 F 98.3 F Pulse Rate 87 84 Respiratory Rate 18 Blood Pressure 143/65 H 117/59 L Pulse Oximetry 96 97 Oxygen Delivery Method Room Air Room Air BMI result Body Mass Index 23.8 Labs 03/03/25 12:43 03/03/25 12:43 Labs: Laboratory Results - last 48 hr 03/14/25 07:58 Prolactin 28.6 H Medications Medications Current Medications Acetaminophen (Acetaminophen 325 Mg Tablet) 650 mg PO Q6H PRN PRN Reason: Headache/Pain, Scale 1-10 Last Admin: 03/09/25 03:13 Dose: 650 mg Al Hydroxide/Mg Hydroxide (Magnesium Hydrox/Alum Hydrox 30 Ml Oral.Susp) 30 ml PO Q6H PRN PRN Reason: Heartburn/Nausea Aripiprazole (Aripiprazole 2 Mg Tablet) 2 mg PO BEDTIME [facility] Last Admin: 03/14/25 20:22 Dose: 2 mg Guaifenesin (Guaifenesin 200 Mg/10 Ml 10 Ml Liquid) 10 ml PO Q6H PRN PRN Reason: Cough/congestion Last Admin: 03/09/25 22:25 Dose: 10 ml Hydroxyzine HCl (Hydroxyzine Hcl 25 Mg Tablet) 25 mg PO Q6H PRN PRN Reason: mild anxiety Last Admin: 03/14/25 21:09 Dose: 25 mg Lorazepam (Lorazepam 0.5 Mg Tablet) 0.5 mg PO BID [facility] Last Admin: 03/15/25 08:44 Dose: 0.5 mg Magnesium Hydroxide (Milk Of Magnesia 30 Ml Oral.Susp) 30 ml PO DAILY PRN PRN Reason: Constipation Nicotine Polacrilex (Nicotine Polacrilex 2 Mg Gum) 4 mg BUCCAL Q2H PRN PRN Reason: Nicotine Cravings Risperidone (Risperidone 3 Mg Tablet) 3 mg PO BEDTIME [facility] Last Admin: 03/14/25 20:22 Dose: 3 mg Risperidone (Risperidone 2 Mg Tablet) 2 mg PO DAILY [facility] Last Admin: 03/15/25 08:44 Dose: 2 mg Sodium Chloride (Sodium Chloride 0.65 % Nasal 44 Ml Sprbtl) 1 spray NOSTRIL-B Q4H PRN PRN Reason: Congestion Last Admin: 03/11/25 12:34 Dose: 1 spray Trazodone HCl (Trazodone Hcl 50 Mg Tablet) 50 mg PO BEDTIME PRN PRN Reason: Insomnia Last Admin: 03/14/25 20:25 Dose: 50 mg Allergies Allergies Allergy/AdvReac Type Severity Reaction Status Date / Time Unable to Assess Allergy Verified 03/03/25 12:25 Assessment & Plan Assessment & Plan (1) Schizophrenia: Qualifiers: Schizophrenia type: unspecified Qualified Code(s): F20.9 - Schizophrenia, unspecified Status: Acute Code(s): F20.9 - Schizophrenia, unspecified (2) Marijuana abuse, continuous: Status: Acute Code(s): F12.10 - Cannabis abuse, uncomplicated Plan Plan: HPI: Patient is a 20 year old assigned male at with a history of schizophrenia presenting to the emergency department today with disorganized behavior. Patient states that he just wants a eastman and someone to fix his hair. Patient's family states that the patient is not taking his medication and has been acting erratically.He was evaluated at his home after his mom called regarding worsening behavior. Stopped taking medication after discharge from on 02/18. Increased marijuana use. -menstruate bizarre behavior at home since past Friday, become more paranoid and thought blocks, rapid decompensation. Increased paranoid behavior. This is 2nd inpatient admission in a very short period of time. (it was here from February 13 to February 18). Increase marijuana use which may contribute to his paranoid thoughts and behavior changes Formulation/clinical reasoning: Family has safety concern regarding the rapid decompensation after stopped taking medication. He was prescribed risperidone 3 mg at bedtime. Not follow-up with outpatient provider for aftercare. Increased marijuana use. The combination of not taking medication and substance use with carrying of schizophrenic diagnosis, lead to rapid decompensate. Increase thought blocks, increased paranoid thoughts, not eating and sleeping well lately. Given above information, he will be benefit in inpatient level of care. We will monitor and restart auto medication with plan to getting long-acting injection on poor. Hospital course: 03/04/25: Restart risperidone 3 mg at bedtime for psychosis. 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 We will wean off table of when symptoms decreased. 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 We will discuss with mom in detail regarding ENRIQUE on risperidone Consta or Uzydi. At this time he wants the shot for once a month. In the meantime we will have him taking risperidone probably increase over the weekend up to 4 mg/day. 03/05: Increase Risperdal to 4 mg HS 03/07: Active on unit. attending groups. Patient reports feeling good ; declined risperidal last night. pt stated, I stopped taking the medication because I'm sleeping better . Pt educated regarding importance of medication compliance. per nursing, pt slept 7 hours last night. denies SI/HI/VH/AH. Continue current tx plan. 03/08/25: Resume care. Encourage patient to take medication consistently as he refused risperidone tonight before last night. He agreed to get risperidone up to 5 mg to target paranoid psychotic symptoms. Also start Ativan 0.5 twice a day with plan to taper him off when he has less thought blocks. Pleasant and cooperative upon approach. No other safety concerns besides being paranoid. Increase risperidone from 4 mg at bedtime to 5 total of mg in divided dose : 2 mg in the morning and 3 mg at bedtime. Start Ativan 0.5 twice a day for catatonic. Plans to taper down on Ativan and offer long-acting injection when target symptoms improve and tolerate to the p.o. medication. 03/09/25: Continued to improve in psychosis symptoms, reports anxiety but deny depression. No ADLs issue shower this morning. Compliant with medication. Nasal congestion interfere with sleep. Other Robitussin for cough or congestion PRN. Call mom ELVIENORRIS at [phone]. Lelft . Regarding medication plan. Discussed with the pharmacy for potential long-acting injection. Either do Invega Sustenna or risperidone Consta. We do not carry Uzydy ENRIQUE. 03/10/25: Continued to improve in psychosis, thought blocks but improved, having better affect and emotion on his face, smile and joking with staff. Denies any side effects from medications. He has been sleeping good and been eating okay. Some nasal congestion continue. Orders nasal spray and Robitussin for cough congestion PRN. Encouraged to utilize them to help with the symptoms. Not hearing back from mom yet. Per mom when she last spoke to social security benefits interviewer, she thinks patient is not much improved. However in the past couple of days he has been better with paranoid thoughts. Denies auto safety concerns. Receptive with the plan of risperidone go up to 6 mg in divided dosage for psychosis. Then long-acting injection to follow. He expressed wanted to get Invega Sustenna which is monthly supply so he can be better with medication adherence. 03/11/25: Still has not heard back from his mom. Patient continued to improve in anxiety and psychosis. He does well with risperidone up to 6 mg. However prolactin level elevated 25.9, he is asymptomatic. He is receptive plan that lower risperidone with Abilify 2 mg on brought to help with the level. At this point I do not want to switch him into another antipsychotic as risperidone seems be effective for him. We will hold the long-acting injection planned until further over the weekends. I ordered prolactin level for FridayMarch 14. Patient is receptive to the plan. DC risperidone PRN. Scheduled risperidone down to 5 mg in divided dose. Abilify 2 mg daily at bedtime. We will monitor for any interaction between the 2 antipsychotic medications. No other safety concerns in terms of safety. Case also discussed with Dr. Loya. 03/12: Continue current management and treatment plan. 03/13: Continue current management and treatment plan. 03/14: Active on unit. keeping to self.calm, coopertive. Patient reports feeling okay today. Patient reports he is agreeable to have an ENRIQUE; he is focused on discharge. Prolactin level pending. denies SI/HI/VH/AH. Continue current tx plan. 03/15: Calm, cooperative. Patient reports feeling good ; denies any issues at this time. Prolactin level 28.6 on 03/14/25; denies any pain or discharge from nipples. denies SI/HI/VH/AH. Discussed case with Dr. Loya. Plan Patient on 15 minute checks for safety. Admitted to . CV. He placed on single room due to paranoid thoughts. We will reach out to mom to update mom regarding medication plans. Left voice message awaiting for mom to call back. Has not had get yet hear back from mom. We will potential to offer Invega Sustenna 234 over the weekends if the patient tolerate well with the p.o. risperidone with dose increased. However, due to elevated on prolactin level. Long-acting injection will be held until further. Dose reduce. Abilify 2 mg on board. Prolactin level on 03/14 Work with treatment team to do collateral and referral for aftercare. We reinforced the negative effects on marijuana when he is more clear. He states that he does not want or interested in go back to smoke Patient is medically clear from [facility]. unremarkable labs work and EKG is within normal limits. Patient educated on: diagnosis and medication risk/benefits Reason for continued inpatient stay Substantial Risk for: med/psych decompensation Time Spent With Patient Time: Total time managing care of this patient today _20___ minutes.
[2025-03-15 20:00] VITALS: BP 145/69; PULSE 91; RESP 16; TEMP 36.4; O2SAT 99
[2025-03-16 08:38] VITALS: BP 99/55; PULSE 100; RESP 18; TEMP 36.8; O2SAT 98
--- NOTE | 2025-03-16 09:47 | P.PNPSI_ITS ---
Subjective Subjective Date of Service: 03/16/25 Reason For Visit: Schizophrenia Subjective Notes: Conditional Voluntary Interim History: Patient states that he feels alright. He denies anxiety and depression. He admits to sleeping well. He notes that he has been taking his medications as prescribed and attending groups. He denies SI/HI/AH/VH. Medication Compliance: Yes Side effects from medications: No Attending Groups: Intermittent Review of Systems Acute medical concerns: No Mental Status Exam Mental Status Exam Narrative: Appearance: Casually dressed, adequate hygiene Behavior: Calm and cooperative throughout the interview. Eye contact is appropriate, and there are no signs of psychomotor agitation or retardation Speech: Normal volume and prosody Thought process: logical and goal-directed Thought content: Future oriented no self-harming thoughts Mood: Alright Affect: Constricted SI:denies HI:denies VH/AH:none Delusions: None Insight/judgment: Fair insight and judgment Memory/cog: Alert, oriented x 4. grossly intact to conversational testing Diagnostics Vital Signs (24Hr): Vital Signs - 24 hr 03/15/25 20:00 03/16/25 08:38 Temperature 97.5 F 98.3 F Pulse Rate 91 100 Respiratory Rate 16 18 Blood Pressure 145/69 H 99/55 L Pulse Oximetry 99 98 Oxygen Delivery Method Room Air Room Air BMI result Body Mass Index 23.8 Labs 03/03/25 12:43 03/03/25 12:43 Labs: Laboratory Results - last 48 hr 03/14/25 07:58 Prolactin 28.6 H Medications Medications Current Medications Acetaminophen (Acetaminophen 325 Mg Tablet) 650 mg PO Q6H PRN PRN Reason: Headache/Pain, Scale 1-10 Last Admin: 03/09/25 03:13 Dose: 650 mg Al Hydroxide/Mg Hydroxide (Magnesium Hydrox/Alum Hydrox 30 Ml Oral.Susp) 30 ml PO Q6H PRN PRN Reason: Heartburn/Nausea Aripiprazole (Aripiprazole 2 Mg Tablet) 2 mg PO BEDTIME [facility] Last Admin: 03/15/25 21:18 Dose: 2 mg Guaifenesin (Guaifenesin 200 Mg/10 Ml 10 Ml Liquid) 10 ml PO Q6H PRN PRN Reason: Cough/congestion Last Admin: 03/09/25 22:25 Dose: 10 ml Hydroxyzine HCl (Hydroxyzine Hcl 25 Mg Tablet) 25 mg PO Q6H PRN PRN Reason: mild anxiety Last Admin: 03/14/25 21:09 Dose: 25 mg Lorazepam (Lorazepam 0.5 Mg Tablet) 0.5 mg PO BID [facility] Last Admin: 03/16/25 08:37 Dose: 0.5 mg Magnesium Hydroxide (Milk Of Magnesia 30 Ml Oral.Susp) 30 ml PO DAILY PRN PRN Reason: Constipation Nicotine Polacrilex (Nicotine Polacrilex 2 Mg Gum) 4 mg BUCCAL Q2H PRN PRN Reason: Nicotine Cravings Last Admin: 03/15/25 19:30 Dose: 4 mg Risperidone (Risperidone 3 Mg Tablet) 3 mg PO BEDTIME [facility] Last Admin: 03/15/25 21:17 Dose: 3 mg Risperidone (Risperidone 2 Mg Tablet) 2 mg PO DAILY [facility] Last Admin: 03/16/25 08:37 Dose: 2 mg Sodium Chloride (Sodium Chloride 0.65 % Nasal 44 Ml Sprbtl) 1 spray NOSTRIL-B Q4H PRN PRN Reason: Congestion Last Admin: 03/11/25 12:34 Dose: 1 spray Trazodone HCl (Trazodone Hcl 50 Mg Tablet) 50 mg PO BEDTIME PRN PRN Reason: Insomnia Last Admin: 03/15/25 21:18 Dose: 50 mg Allergies Allergies Allergy/AdvReac Type Severity Reaction Status Date / Time Unable to Assess Allergy Verified 03/03/25 12:25 Assessment & Plan Assessment & Plan (1) Schizophrenia: Qualifiers: Schizophrenia type: unspecified Qualified Code(s): F20.9 - Schizophrenia, unspecified Status: Acute Code(s): F20.9 - Schizophrenia, unspecified (2) Marijuana abuse, continuous: Status: Acute Code(s): F12.10 - Cannabis abuse, uncomplicated Plan Plan: HPI: Patient is a 20 year old assigned male at with a history of schizophrenia presenting to the emergency department today with disorganized behavior. Patient states that he just wants a eastman and someone to fix his hair. Patient's family states that the patient is not taking his medication and has been acting erratically.He was evaluated at his home after his mom called regarding worsening behavior. Stopped taking medication after discharge from on 02/18. Increased marijuana use. -menstruate bizarre behavior at home since past Friday, become more paranoid and thought blocks, rapid decompensation. Increased paranoid behavior. This is 2nd inpatient admission in a very short period of time. (it was here from February 13 to February 18). Increase marijuana use which may contribute to his paranoid thoughts and behavior changes Formulation/clinical reasoning: Family has safety concern regarding the rapid decompensation after stopped taking medication. He was prescribed risperidone 3 mg at bedtime. Not follow-up with outpatient provider for aftercare. Increased marijuana use. The combination of not taking medication and substance use with carrying of schizophrenic diagnosis, lead to rapid decompensate. Increase thought blocks, increased paranoid thoughts, not eating and sleeping well lately. Given above information, he will be benefit in inpatient level of care. We will monitor and restart auto medication with plan to getting long-acting injection on poor. Hospital course: 03/04/25: Restart risperidone 3 mg at bedtime for psychosis. 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 We will wean off table of when symptoms decreased. 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 We will discuss with mom in detail regarding ENRIQUE on risperidone Consta or Uzydi. At this time he wants the shot for once a month. In the meantime we will have him taking risperidone probably increase over the weekend up to 4 mg/day. 03/05: Increase Risperdal to 4 mg HS 03/07: Active on unit. attending groups. Patient reports feeling good ; declined risperidal last night. pt stated, I stopped taking the medication because I'm sleeping better . Pt educated regarding importance of medication compliance. per nursing, pt slept 7 hours last night. denies SI/HI/VH/AH. Continue current tx plan. 03/08/25: Resume care. Encourage patient to take medication consistently as he refused risperidone tonight before last night. He agreed to get risperidone up to 5 mg to target paranoid psychotic symptoms. Also start Ativan 0.5 twice a day with plan to taper him off when he has less thought blocks. Pleasant and cooperative upon approach. No other safety concerns besides being paranoid. Increase risperidone from 4 mg at bedtime to 5 total of mg in divided dose : 2 mg in the morning and 3 mg at bedtime. Start Ativan 0.5 twice a day for catatonic. Plans to taper down on Ativan and offer long-acting injection when target symptoms improve and tolerate to the p.o. medication. 03/09/25: Continued to improve in psychosis symptoms, reports anxiety but deny depression. No ADLs issue shower this morning. Compliant with medication. Nasal congestion interfere with sleep. Other Robitussin for cough or congestion PRN. Call mom INOCENCIO at [phone]. Alee LANIER. Regarding medication plan. Discussed with the pharmacy for potential long-acting injection. Either do Invega Sustenna or risperidone Consta. We do not carry Uzydy ENRIQUE. 03/10/25: Continued to improve in psychosis, thought blocks but improved, having better affect and emotion on his face, smile and joking with staff. Denies any side effects from medications. He has been sleeping good and been eating okay. Some nasal congestion continue. Orders nasal spray and Robitussin for cough congestion PRN. Encouraged to utilize them to help with the symptoms. Not hearing back from mom yet. Per mom when she last spoke to transition social worker, she thinks patient is not much improved. However in the past couple of days he has been better with paranoid thoughts. Denies auto safety concerns. Receptive with the plan of risperidone go up to 6 mg in divided dosage for psychosis. Then long-acting injection to follow. He expressed wanted to get Invega Sustenna which is monthly supply so he can be better with medication adherence. 03/11/25: Still has not heard back from his mom. Patient continued to improve in anxiety and psychosis. He does well with risperidone up to 6 mg. However prolactin level elevated 25.9, he is asymptomatic. He is receptive plan that lower risperidone with Abilify 2 mg on brought to help with the level. At this point I do not want to switch him into another antipsychotic as risperidone seems be effective for him. We will hold the long-acting injection planned until further over the weekends. I ordered prolactin level for FridayMarch 14. Patient is receptive to the plan. DC risperidone PRN. Scheduled risperidone down to 5 mg in divided dose. Abilify 2 mg daily at bedtime. We will monitor for any interaction between the 2 antipsychotic medications. No other safety concerns in terms of safety. Case also discussed with Dr. Loya. 03/12: Continue current management and treatment plan. 03/13: Continue current management and treatment plan. 03/14: Active on unit. keeping to self.calm, coopertive. Patient reports feeling okay today. Patient reports he is agreeable to have an ENRIQUE; he is focused on discharge. Prolactin level pending. denies SI/HI/VH/AH. Continue current tx plan. 03/15: Calm, cooperative. Patient reports feeling good ; denies any issues at this time. Prolactin level 28.6 on 03/14/25; denies any pain or discharge from nipples. denies SI/HI/VH/AH. Discussed case with Dr. Loya. 03/16: Patient states that he feels alright. He denies anxiety and depression. He admits to sleeping well. He notes that he has been taking his medications as prescribed and attending groups. He denies SI/HI/AH/VH. He has been doing well on risperidone and therefore will continue current dose. Will increase Abilify to 5 mg daily to counteract prolactin elevation. Will recheck prolactin levels in 3 days. The goal is to get him on long-acting injectable from of Risperidone. Continue current treatment regimen. Plan Patient on 15 minute checks for safety. Admitted to . CV. He placed on single room due to paranoid thoughts. We will reach out to mom to update mom regarding medication plans. Left voice message awaiting for mom to call back. Has not had get yet hear back from mom. We will potential to offer Invega Sustenna 234 over the weekends if the patient tolerate well with the p.o. risperidone with dose increased. However, due to elevated on prolactin level. Long-acting injection will be held until further. Dose reduce. Abilify 2 mg on board. Prolactin level on 03/14 Work with treatment team to do collateral and referral for aftercare. We reinforced the negative effects on marijuana when he is more clear. He states that he does not want or interested in go back to smoke Patient is medically clear from [facility]. unremarkable labs work and EKG is within normal limits. Patient educated on: therapeutic strategies Reason for continued inpatient stay Substantial Risk for: rapid decompensation Time Spent With Patient Time: Total time managing care of this patient today ____ minutes.
[2025-03-16 19:56] VITALS: BP 138/63; PULSE 90; RESP 16; TEMP 37; O2SAT 99
[2025-03-17 07:00] VITALS: BMI 25.4
[2025-03-17 08:12] VITALS: BP 119/58; PULSE 94; RESP 18; TEMP 36.4; O2SAT 96
--- NOTE | 2025-03-17 11:01 | P.PNPSI_ITS ---
Subjective Subjective Date of Service: 03/17/25 Reason For Visit: Schizophrenia Subjective Notes: Conditional Voluntary Interim History: Patient states that he feels good. He has been taking his medications as prescribed and attending groups. He denies anxiety or depression. He denies SI/HI/AH/VH. Medication Compliance: Yes Side effects from medications: No Attending Groups: Intermittent Review of Systems Acute medical concerns: No Review of Systems Review of Systems Yes all other systems are reviewed and are negative Mental Status Exam Mental Status Exam Narrative: Appearance: Casually dressed, adequate hygiene Behavior: Calm and cooperative throughout the interview. Eye contact is appropriate, and there are no signs of psychomotor agitation or retardation Speech: Normal volume and prosody Thought process: logical and goal-directed Thought content: Future oriented no self-harming thoughts Mood: Good Affect: Constricted SI:denies HI:denies VH/AH:none Delusions: None Insight/judgment: Fair insight and judgment Memory/cog: Alert, oriented x 4. grossly intact to conversational testing Diagnostics Vital Signs (24Hr): Vital Signs - 24 hr 03/16/25 19:56 03/17/25 08:12 Temperature 98.6 F 97.5 F Pulse Rate 90 94 Respiratory Rate 16 18 Blood Pressure 138/63 119/58 L Pulse Oximetry 99 96 Oxygen Delivery Method Room Air Room Air BMI result Body Mass Index 23.8 Labs 03/03/25 12:43 03/03/25 12:43 Medications Medications Current Medications Acetaminophen (Acetaminophen 325 Mg Tablet) 650 mg PO Q6H PRN PRN Reason: Headache/Pain, Scale 1-10 Last Admin: 03/09/25 03:13 Dose: 650 mg Al Hydroxide/Mg Hydroxide (Magnesium Hydrox/Alum Hydrox 30 Ml Oral.Susp) 30 ml PO Q6H PRN PRN Reason: Heartburn/Nausea Aripiprazole (Aripiprazole 5 Mg Tablet) 5 mg PO BEDTIME SALVATORE Last Admin: 03/16/25 21:25 Dose: 5 mg Guaifenesin (Guaifenesin 200 Mg/10 Ml 10 Ml Liquid) 10 ml PO Q6H PRN PRN Reason: Cough/congestion Last Admin: 03/09/25 22:25 Dose: 10 ml Hydroxyzine HCl (Hydroxyzine Hcl 25 Mg Tablet) 25 mg PO Q6H PRN PRN Reason: mild anxiety Last Admin: 03/14/25 21:09 Dose: 25 mg Lorazepam (Lorazepam 0.5 Mg Tablet) 0.5 mg PO BID [facility] Last Admin: 03/17/25 08:09 Dose: 0.5 mg Magnesium Hydroxide (Milk Of Magnesia 30 Ml Oral.Susp) 30 ml PO DAILY PRN PRN Reason: Constipation Nicotine Polacrilex (Nicotine Polacrilex 2 Mg Gum) 4 mg BUCCAL Q2H PRN PRN Reason: Nicotine Cravings Last Admin: 03/16/25 21:25 Dose: 4 mg Risperidone (Risperidone 3 Mg Tablet) 3 mg PO BEDTIME SALVATORE Last Admin: 03/16/25 21:24 Dose: 3 mg Risperidone (Risperidone 2 Mg Tablet) 2 mg PO DAILY [facility] Last Admin: 03/17/25 08:09 Dose: 2 mg Sodium Chloride (Sodium Chloride 0.65 % Nasal 44 Ml Sprbtl) 1 spray NOSTRIL-B Q4H PRN PRN Reason: Congestion Last Admin: 03/11/25 12:34 Dose: 1 spray Trazodone HCl (Trazodone Hcl 50 Mg Tablet) 50 mg PO BEDTIME PRN PRN Reason: Insomnia Last Admin: 03/16/25 21:24 Dose: 50 mg Allergies Allergies Allergy/AdvReac Type Severity Reaction Status Date / Time Unable to Assess Allergy Verified 03/03/25 12:25 Assessment & Plan Assessment & Plan (1) Schizophrenia: Qualifiers: Schizophrenia type: unspecified Qualified Code(s): F20.9 - Schizophrenia, unspecified Status: Acute Code(s): F20.9 - Schizophrenia, unspecified (2) Marijuana abuse, continuous: Status: Acute Code(s): F12.10 - Cannabis abuse, uncomplicated Plan Plan: HPI: Patient is a 20 year old assigned male at with a history of schizophrenia presenting to the emergency department today with disorganized behavior. Patient states that he just wants a eastman and someone to fix his hair. Patient's family states that the patient is not taking his medication and has been acting erratically.He was evaluated at his home after his mom called regarding worsening behavior. Stopped taking medication after discharge from on 02/18. Increased marijuana use. -menstruate bizarre behavior at home since past Friday, become more paranoid and thought blocks, rapid decompensation. Increased paranoid behavior. This is 2nd inpatient admission in a very short period of time. (it was here from February 13 to February 18). Increase marijuana use which may contribute to his paranoid thoughts and behavior changes Formulation/clinical reasoning: Family has safety concern regarding the rapid decompensation after stopped taking medication. He was prescribed risperidone 3 mg at bedtime. Not follow-up with outpatient provider for aftercare. Increased marijuana use. The combination of not taking medication and substance use with carrying of schizophrenic diagnosis, lead to rapid decompensate. Increase thought blocks, increased paranoid thoughts, not eating and sleeping well lately. Given above information, he will be benefit in inpatient level of care. We will monitor and restart auto medication with plan to getting long-acting injection on poor. Hospital course: 03/04/25: Restart risperidone 3 mg at bedtime for psychosis. 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 We will wean off table of when symptoms decreased. 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 We will discuss with mom in detail regarding ENRIQUE on risperidone Consta or Uzydi. At this time he wants the shot for once a month. In the meantime we will have him taking risperidone probably increase over the weekend up to 4 mg/day. 03/05: Increase Risperdal to 4 mg HS 03/07: Active on unit. attending groups. Patient reports feeling good ; declined risperidal last night. pt stated, I stopped taking the medication because I'm sleeping better . Pt educated regarding importance of medication compliance. per nursing, pt slept 7 hours last night. denies SI/HI/VH/AH. Continue current tx plan. 03/08/25: Resume care. Encourage patient to take medication consistently as he refused risperidone tonight before last night. He agreed to get risperidone up to 5 mg to target paranoid psychotic symptoms. Also start Ativan 0.5 twice a day with plan to taper him off when he has less thought blocks. Pleasant and cooperative upon approach. No other safety concerns besides being paranoid. Increase risperidone from 4 mg at bedtime to 5 total of mg in divided dose : 2 mg in the morning and 3 mg at bedtime. Start Ativan 0.5 twice a day for catatonic. Plans to taper down on Ativan and offer long-acting injection when target symptoms improve and tolerate to the p.o. medication. 03/09/25: Continued to improve in psychosis symptoms, reports anxiety but deny depression. No ADLs issue shower this morning. Compliant with medication. Nasal congestion interfere with sleep. Other Robitussin for cough or congestion PRN. Call mom INOCENCIO at [phone]. Alee LANIER. Regarding medication plan. Discussed with the pharmacy for potential long-acting injection. Either do Invega Sustenna or risperidone Consta. We do not carry Uzydy ENRIQUE. 03/10/25: Continued to improve in psychosis, thought blocks but improved, having better affect and emotion on his face, smile and joking with staff. Denies any side effects from medications. He has been sleeping good and been eating okay. Some nasal congestion continue. Orders nasal spray and Robitussin for cough congestion PRN. Encouraged to utilize them to help with the symptoms. Not hearing back from mom yet. Per mom when she last spoke to social worker masters, she thinks patient is not much improved. However in the past couple of days he has been better with paranoid thoughts. Denies auto safety concerns. Receptive with the plan of risperidone go up to 6 mg in divided dosage for psychosis. Then long-acting injection to follow. He expressed wanted to get Invega Sustenna which is monthly supply so he can be better with medication adherence. 03/11/25: Still has not heard back from his mom. Patient continued to improve in anxiety and psychosis. He does well with risperidone up to 6 mg. However prolactin level elevated 25.9, he is asymptomatic. He is receptive plan that lower risperidone with Abilify 2 mg on brought to help with the level. At this point I do not want to switch him into another antipsychotic as risperidone seems be effective for him. We will hold the long-acting injection planned until further over the weekends. I ordered prolactin level for FridayMarch 14. Patient is receptive to the plan. DC risperidone PRN. Scheduled risperidone down to 5 mg in divided dose. Abilify 2 mg daily at bedtime. We will monitor for any interaction between the 2 antipsychotic medications. No other safety concerns in terms of safety. Case also discussed with Dr. Loya. 03/12: Continue current management and treatment plan. 03/13: Continue current management and treatment plan. 03/14: Active on unit. keeping to self.calm, coopertive. Patient reports feeling okay today. Patient reports he is agreeable to have an ENRIQUE; he is focused on discharge. Prolactin level pending. denies SI/HI/VH/AH. Continue current tx plan. 03/15: Calm, cooperative. Patient reports feeling good ; denies any issues at this time. Prolactin level 28.6 on 03/14/25; denies any pain or discharge from nipples. denies SI/HI/VH/AH. Discussed case with Dr. Loya. 03/16: Patient states that he feels alright. He denies anxiety and depression. He admits to sleeping well. He notes that he has been taking his medications as prescribed and attending groups. He denies SI/HI/AH/VH. He has been doing well on risperidone and therefore will continue current dose. Will increase Abilify to 5 mg daily to counteract prolactin elevation. Will recheck prolactin levels in 3 days. The goal is to get him on long-acting injectable from of Risperidone. Continue current treatment regimen. 03/17: Patient states that he feels good. He has been taking his medications as prescribed and attending groups. He denies anxiety or depression. He denies SI/HI/AH/VH. Prolactin level due to be checked on 03/19; goal is to start him on long-acting form of Risperidone once prolactin level normalized. Continue current treatment regimen. Plan Patient on 15 minute checks for safety. Admitted to . CV. He placed on single room due to paranoid thoughts. We will reach out to mom to update mom regarding medication plans. Left voice message awaiting for mom to call back. Has not had get yet hear back from mom. We will potential to offer Invega Sustenna 234 over the weekends if the patient tolerate well with the p.o. risperidone with dose increased. However, due to elevated on prolactin level. Long-acting injection will be held until further. Dose reduce. Abilify 2 mg on board. Prolactin level on 03/14 Work with treatment team to do collateral and referral for aftercare. We reinforced the negative effects on marijuana when he is more clear. He states that he does not want or interested in go back to smoke Patient is medically clear from [facility]. unremarkable labs work and EKG is within normal limits. Patient educated on: therapeutic strategies Reason for continued inpatient stay Substantial Risk for: rapid decompensation Time Spent With Patient Time: Total time managing care of this patient today ____ minutes.
[2025-03-17 20:00] VITALS: BP 123/72; PULSE 89; RESP 18; TEMP 36.4; O2SAT 96
[2025-03-18 08:00] VITALS: BP 116/54; PULSE 87; RESP 18; TEMP 36.8; O2SAT 98
--- NOTE | 2025-03-18 08:25 | HO.PSYCHPN ---
Subjective Subjective Date of Service: 03/18/25 Reason For Visit: Schizophrenia Interim History: met with patient. Discussed with nursing. Overall medication adherent. Denies depression. Denies feeling paranoid. Sleep okay. In the milieu later in the day. Appropriately asking around medication plan and long-acting injectable. Did note prolactin concerns and repeat testing of same prior to deciding around long-acting injectable. Medication Compliance: Yes Side effects from medications: Yes ( Prolactin) Attending Groups: Intermittent Review of Systems Acute medical concerns: No Review of Systems Review of Systems unremarkable Mental Status Exam Mental Status Exam Narrative: Appearance: Casually dressed, adequate hygiene Behavior: Calm and cooperative throughout the interview. Eye contact is appropriate, and there are no signs of psychomotor agitation or retardation Speech: Normal volume and prosody Thought process: logical and goal-directed Thought content: Future oriented no self-harming thoughts Mood: Good Affect: Constricted SI:denies HI:denies VH/AH:none Delusions: None Insight/judgment: Fair insight and judgment Memory/cog: Alert, oriented x 4. grossly intact to conversational testing Diagnostics Vital Signs (24Hr): Vital Signs - 24 hr 03/17/25 20:00 03/18/25 08:00 Temperature 97.5 F 98.2 F Pulse Rate 89 87 Respiratory Rate 18 18 Blood Pressure 123/72 116/54 L Pulse Oximetry 96 98 Oxygen Delivery Method Room Air Room Air BMI result Body Mass Index 25.4 Labs 03/03/25 12:43 03/03/25 12:43 Medications Medications Current Medications Acetaminophen (Acetaminophen 325 Mg Tablet) 650 mg PO Q6H PRN PRN Reason: Headache/Pain, Scale 1-10 Last Admin: 03/09/25 03:13 Dose: 650 mg Al Hydroxide/Mg Hydroxide (Magnesium Hydrox/Alum Hydrox 30 Ml Oral.Susp) 30 ml PO Q6H PRN PRN Reason: Heartburn/Nausea Aripiprazole (Aripiprazole 5 Mg Tablet) 5 mg PO BEDTIME SALVATORE Last Admin: 03/17/25 21:00 Dose: 5 mg Guaifenesin (Guaifenesin 200 Mg/10 Ml 10 Ml Liquid) 10 ml PO Q6H PRN PRN Reason: Cough/congestion Last Admin: 03/09/25 22:25 Dose: 10 ml Hydroxyzine HCl (Hydroxyzine Hcl 25 Mg Tablet) 25 mg PO Q6H PRN PRN Reason: mild anxiety Last Admin: 03/14/25 21:09 Dose: 25 mg Lorazepam (Lorazepam 0.5 Mg Tablet) 0.5 mg PO BID [facility] Last Admin: 03/17/25 21:00 Dose: 0.5 mg Magnesium Hydroxide (Milk Of Magnesia 30 Ml Oral.Susp) 30 ml PO DAILY PRN PRN Reason: Constipation Nicotine (Nicotine 14 Mg Patch.Td24) 14 mg TRANSDERMA DAILY PRN PRN Reason: Smoking cessation Nicotine Polacrilex (Nicotine Polacrilex 2 Mg Gum) 4 mg BUCCAL Q2H PRN PRN Reason: Nicotine Cravings Last Admin: 03/17/25 21:16 Dose: 4 mg Risperidone (Risperidone 3 Mg Tablet) 3 mg PO BEDTIME SALVATORE Last Admin: 03/17/25 21:00 Dose: 3 mg Risperidone (Risperidone 2 Mg Tablet) 2 mg PO DAILY [facility] Last Admin: 03/17/25 08:09 Dose: 2 mg Sodium Chloride (Sodium Chloride 0.65 % Nasal 44 Ml Sprbtl) 1 spray NOSTRIL-B Q4H PRN PRN Reason: Congestion Last Admin: 03/11/25 12:34 Dose: 1 spray Trazodone HCl (Trazodone Hcl 50 Mg Tablet) 50 mg PO BEDTIME PRN PRN Reason: Insomnia Last Admin: 03/17/25 21:00 Dose: 50 mg Allergies Allergies Allergy/AdvReac Type Severity Reaction Status Date / Time Unable to Assess Allergy Verified 03/03/25 12:25 Assessment & Plan Assessment & Plan (1) Schizophrenia: Qualifiers: Schizophrenia type: unspecified Qualified Code(s): F20.9 - Schizophrenia, unspecified Status: Acute Code(s): F20.9 - Schizophrenia, unspecified (2) Marijuana abuse, continuous: Status: Acute Code(s): F12.10 - Cannabis abuse, uncomplicated Plan Plan: HPI: Patient is a 20 year old assigned male at with a history of schizophrenia presenting to the emergency department today with disorganized behavior. Patient states that he just wants a eastman and someone to fix his hair. Patient's family states that the patient is not taking his medication and has been acting erratically.He was evaluated at his home after his mom called regarding worsening behavior. Stopped taking medication after discharge from on 02/18. Increased marijuana use. -menstruate bizarre behavior at home since past Friday, become more paranoid and thought blocks, rapid decompensation. Increased paranoid behavior. This is 2nd inpatient admission in a very short period of time. (it was here from February 13 to February 18). Increase marijuana use which may contribute to his paranoid thoughts and behavior changes Formulation/clinical reasoning: Family has safety concern regarding the rapid decompensation after stopped taking medication. He was prescribed risperidone 3 mg at bedtime. Not follow-up with outpatient provider for aftercare. Increased marijuana use. The combination of not taking medication and substance use with carrying of schizophrenic diagnosis, lead to rapid decompensate. Increase thought blocks, increased paranoid thoughts, not eating and sleeping well lately. Given above information, he will be benefit in inpatient level of care. We will monitor and restart auto medication with plan to getting long-acting injection on poor. Hospital course: 03/04/25: Restart risperidone 3 mg at bedtime for psychosis. 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 We will wean off table of when symptoms decreased. 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 We will discuss with mom in detail regarding ENRIQUE on risperidone Consta or Uzydi. At this time he wants the shot for once a month. In the meantime we will have him taking risperidone probably increase over the weekend up to 4 mg/day. 03/05: Increase Risperdal to 4 mg HS 03/07: Active on unit. attending groups. Patient reports feeling good ; declined risperidal last night. pt stated, I stopped taking the medication because I'm sleeping better . Pt educated regarding importance of medication compliance. per nursing, pt slept 7 hours last night. denies SI/HI/VH/AH. Continue current tx plan. 03/08/25: Resume care. Encourage patient to take medication consistently as he refused risperidone tonight before last night. He agreed to get risperidone up to 5 mg to target paranoid psychotic symptoms. Also start Ativan 0.5 twice a day with plan to taper him off when he has less thought blocks. Pleasant and cooperative upon approach. No other safety concerns besides being paranoid. Increase risperidone from 4 mg at bedtime to 5 total of mg in divided dose : 2 mg in the morning and 3 mg at bedtime. Start Ativan 0.5 twice a day for catatonic. Plans to taper down on Ativan and offer long-acting injection when target symptoms improve and tolerate to the p.o. medication. 03/09/25: Continued to improve in psychosis symptoms, reports anxiety but deny depression. No ADLs issue shower this morning. Compliant with medication. Nasal congestion interfere with sleep. Other Robitussin for cough or congestion PRN. Call mom INOCENCIO at [phone]. Alee . Regarding medication plan. Discussed with the pharmacy for potential long-acting injection. Either do Invega Sustenna or risperidone Consta. We do not carry Uzydy ENRIQUE. 03/10/25: Continued to improve in psychosis, thought blocks but improved, having better affect and emotion on his face, smile and joking with staff. Denies any side effects from medications. He has been sleeping good and been eating okay. Some nasal congestion continue. Orders nasal spray and Robitussin for cough congestion PRN. Encouraged to utilize them to help with the symptoms. Not hearing back from mom yet. Per mom when she last spoke to director of social services, she thinks patient is not much improved. However in the past couple of days he has been better with paranoid thoughts. Denies auto safety concerns. Receptive with the plan of risperidone go up to 6 mg in divided dosage for psychosis. Then long-acting injection to follow. He expressed wanted to get Invega Sustenna which is monthly supply so he can be better with medication adherence. 03/11/25: Still has not heard back from his mom. Patient continued to improve in anxiety and psychosis. He does well with risperidone up to 6 mg. However prolactin level elevated 25.9, he is asymptomatic. He is receptive plan that lower risperidone with Abilify 2 mg on brought to help with the level. At this point I do not want to switch him into another antipsychotic as risperidone seems be effective for him. We will hold the long-acting injection planned until further over the weekends. I ordered prolactin level for FridayMarch 14. Patient is receptive to the plan. DC risperidone PRN. Scheduled risperidone down to 5 mg in divided dose. Abilify 2 mg daily at bedtime. We will monitor for any interaction between the 2 antipsychotic medications. No other safety concerns in terms of safety. Case also discussed with Dr. Loya. 03/12: Continue current management and treatment plan. 03/13: Continue current management and treatment plan. 03/14: Active on unit. keeping to self.calm, coopertive. Patient reports feeling okay today. Patient reports he is agreeable to have an ENRIQUE; he is focused on discharge. Prolactin level pending. denies SI/HI/VH/AH. Continue current tx plan. 03/15: Calm, cooperative. Patient reports feeling good ; denies any issues at this time. Prolactin level 28.6 on 03/14/25; denies any pain or discharge from nipples. denies SI/HI/VH/AH. Discussed case with Dr. Loya. 03/16: Patient states that he feels alright. He denies anxiety and depression. He admits to sleeping well. He notes that he has been taking his medications as prescribed and attending groups. He denies SI/HI/AH/VH. He has been doing well on risperidone and therefore will continue current dose. Will increase Abilify to 5 mg daily to counteract prolactin elevation. Will recheck prolactin levels in 3 days. The goal is to get him on long-acting injectable from of Risperidone. Continue current treatment regimen. 03/17: Patient states that he feels good. He has been taking his medications as prescribed and attending groups. He denies anxiety or depression. He denies SI/HI/AH/VH. Prolactin level due to be checked on 03/19; goal is to start him on long-acting form of Risperidone once prolactin level normalized. Continue current treatment regimen. 03/18/2025: No changes. Following prolactin level before making decision around long-acting injectable and plans for same Plan Patient on 15 minute checks for safety. Admitted to . CV. He placed on single room due to paranoid thoughts. We will reach out to mom to update mom regarding medication plans. Left voice message awaiting for mom to call back. Has not had get yet hear back from mom. We will potential to offer Invega Sustenna 234 over the weekends if the patient tolerate well with the p.o. risperidone with dose increased. However, due to elevated on prolactin level. Long-acting injection will be held until further. Dose reduce. Abilify 2 mg on board. Prolactin level on 03/14 Work with treatment team to do collateral and referral for aftercare. We reinforced the negative effects on marijuana when he is more clear. He states that he does not want or interested in go back to smoke Patient is medically clear from [facility]. unremarkable labs work and EKG is within normal limits. Reason for continued inpatient stay Substantial Risk for: rapid decompensation Time Spent With Patient Time: Total time managing care of this patient today ____ minutes.
[2025-03-18 19:57] VITALS: BP 126/61; PULSE 84; RESP 15; TEMP 36.4; O2SAT 98
[2025-03-18 20:00] VITALS: BP 126/61; PULSE 84; RESP 18; TEMP 36.4; O2SAT 98
--- NOTE | 2025-03-19 07:30 | HO.PSYCHPN ---
Subjective Subjective Date of Service: 03/19/25 Reason For Visit: Schizophrenia Interim History: met with patient. Discussed with nursing. Overall medication adherent. Denies depression. Denies feeling paranoid. Sleep okay. discussed prolactin level needing to be rechecked as it was elevated at 25 on 03/10/2025 and at 28 on 03/14/2025. Aware that treatment team will make a decision Regarding long-acting injectable option after prolactin level has been repeated. Will order same for tomorrow. Medication Compliance: Yes Side effects from medications: No Attending Groups: Intermittent Review of Systems Acute medical concerns: No Review of Systems Review of Systems unremarkable Mental Status Exam Mental Status Exam Narrative: Appearance: Casually dressed, adequate hygiene Behavior: Calm and cooperative throughout the interview. Eye contact is appropriate, and there are no signs of psychomotor agitation or retardation Speech: Normal volume and prosody Thought process: logical and goal-directed Thought content: Future oriented no self-harming thoughts Mood: Good Affect: Constricted SI:denies HI:denies VH/AH:none Delusions: None Insight/judgment: Fair insight and judgment Memory/cog: Alert, oriented x 4. grossly intact to conversational testing Diagnostics Vital Signs (24Hr): Vital Signs - 24 hr 03/18/25 08:00 03/18/25 19:57 03/18/25 20:00 Temperature 98.2 F 97.5 F 97.5 F Pulse Rate 87 84 84 Respiratory Rate 18 15 18 Blood Pressure 116/54 L 126/61 126/61 Pulse Oximetry 98 98 98 Oxygen Delivery Method Room Air Room Air BMI result Body Mass Index 25.4 Labs 03/03/25 12:43 03/03/25 12:43 Medications Medications Current Medications Acetaminophen (Acetaminophen 325 Mg Tablet) 650 mg PO Q6H PRN PRN Reason: Headache/Pain, Scale 1-10 Last Admin: 03/09/25 03:13 Dose: 650 mg Al Hydroxide/Mg Hydroxide (Magnesium Hydrox/Alum Hydrox 30 Ml Oral.Susp) 30 ml PO Q6H PRN PRN Reason: Heartburn/Nausea Aripiprazole (Aripiprazole 5 Mg Tablet) 5 mg PO BEDTIME SALVATORE Last Admin: 03/18/25 21:12 Dose: 5 mg Guaifenesin (Guaifenesin 200 Mg/10 Ml 10 Ml Liquid) 10 ml PO Q6H PRN PRN Reason: Cough/congestion Last Admin: 03/09/25 22:25 Dose: 10 ml Hydroxyzine HCl (Hydroxyzine Hcl 25 Mg Tablet) 25 mg PO Q6H PRN PRN Reason: mild anxiety Last Admin: 03/14/25 21:09 Dose: 25 mg Lorazepam (Lorazepam 0.5 Mg Tablet) 0.5 mg PO BID SALVATORE Last Admin: 03/18/25 21:13 Dose: 0.5 mg Magnesium Hydroxide (Milk Of Magnesia 30 Ml Oral.Susp) 30 ml PO DAILY PRN PRN Reason: Constipation Nicotine (Nicotine 14 Mg Patch.Td24) 14 mg TRANSDERMA DAILY PRN PRN Reason: Smoking cessation Nicotine Polacrilex (Nicotine Polacrilex 2 Mg Gum) 4 mg BUCCAL Q2H PRN PRN Reason: Nicotine Cravings Last Admin: 03/18/25 12:37 Dose: 4 mg Risperidone (Risperidone 3 Mg Tablet) 3 mg PO BEDTIME SALVATORE Last Admin: 03/18/25 21:13 Dose: 3 mg Risperidone (Risperidone 2 Mg Tablet) 2 mg PO DAILY [facility] Last Admin: 03/18/25 08:46 Dose: 2 mg Sodium Chloride (Sodium Chloride 0.65 % Nasal 44 Ml Sprbtl) 1 spray NOSTRIL-B Q4H PRN PRN Reason: Congestion Last Admin: 03/11/25 12:34 Dose: 1 spray Trazodone HCl (Trazodone Hcl 50 Mg Tablet) 50 mg PO BEDTIME PRN PRN Reason: Insomnia Last Admin: 03/18/25 21:13 Dose: 50 mg Allergies Allergies Allergy/AdvReac Type Severity Reaction Status Date / Time Unable to Assess Allergy Verified 03/03/25 12:25 Assessment & Plan Assessment & Plan (1) Schizophrenia: Qualifiers: Schizophrenia type: unspecified Qualified Code(s): F20.9 - Schizophrenia, unspecified Status: Acute Code(s): F20.9 - Schizophrenia, unspecified (2) Marijuana abuse, continuous: Status: Acute Code(s): F12.10 - Cannabis abuse, uncomplicated Plan Plan: HPI: Patient is a 20 year old assigned male at with a history of schizophrenia presenting to the emergency department today with disorganized behavior. Patient states that he just wants a eastman and someone to fix his hair. Patient's family states that the patient is not taking his medication and has been acting erratically.He was evaluated at his home after his mom called regarding worsening behavior. Stopped taking medication after discharge from on 02/18. Increased marijuana use. -menstruate bizarre behavior at home since past Friday, become more paranoid and thought blocks, rapid decompensation. Increased paranoid behavior. This is 2nd inpatient admission in a very short period of time. (it was here from February 13 to February 18). Increase marijuana use which may contribute to his paranoid thoughts and behavior changes Formulation/clinical reasoning: Family has safety concern regarding the rapid decompensation after stopped taking medication. He was prescribed risperidone 3 mg at bedtime. Not follow-up with outpatient provider for aftercare. Increased marijuana use. The combination of not taking medication and substance use with carrying of schizophrenic diagnosis, lead to rapid decompensate. Increase thought blocks, increased paranoid thoughts, not eating and sleeping well lately. Given above information, he will be benefit in inpatient level of care. We will monitor and restart auto medication with plan to getting long-acting injection on poor. Hospital course: 03/04/25: Restart risperidone 3 mg at bedtime for psychosis. 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 We will wean off table of when symptoms decreased. 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 We will discuss with mom in detail regarding ENRIQUE on risperidone Consta or Uzydi. At this time he wants the shot for once a month. In the meantime we will have him taking risperidone probably increase over the weekend up to 4 mg/day. 03/05: Increase Risperdal to 4 mg HS 03/07: Active on unit. attending groups. Patient reports feeling good ; declined risperidal last night. pt stated, I stopped taking the medication because I'm sleeping better . Pt educated regarding importance of medication compliance. per nursing, pt slept 7 hours last night. denies SI/HI/VH/AH. Continue current tx plan. 03/08/25: Resume care. Encourage patient to take medication consistently as he refused risperidone tonight before last night. He agreed to get risperidone up to 5 mg to target paranoid psychotic symptoms. Also start Ativan 0.5 twice a day with plan to taper him off when he has less thought blocks. Pleasant and cooperative upon approach. No other safety concerns besides being paranoid. Increase risperidone from 4 mg at bedtime to 5 total of mg in divided dose : 2 mg in the morning and 3 mg at bedtime. Start Ativan 0.5 twice a day for catatonic. Plans to taper down on Ativan and offer long-acting injection when target symptoms improve and tolerate to the p.o. medication. 03/09/25: Continued to improve in psychosis symptoms, reports anxiety but deny depression. No ADLs issue shower this morning. Compliant with medication. Nasal congestion interfere with sleep. Other Robitussin for cough or congestion PRN. Call mom INOCENCIO at [phone]. Alee . Regarding medication plan. Discussed with the pharmacy for potential long-acting injection. Either do Invega Sustenna or risperidone Consta. We do not carry Uzydy ENRIQUE. 03/10/25: Continued to improve in psychosis, thought blocks but improved, having better affect and emotion on his face, smile and joking with staff. Denies any side effects from medications. He has been sleeping good and been eating okay. Some nasal congestion continue. Orders nasal spray and Robitussin for cough congestion PRN. Encouraged to utilize them to help with the symptoms. Not hearing back from mom yet. Per mom when she last spoke to health social work professor, she thinks patient is not much improved. However in the past couple of days he has been better with paranoid thoughts. Denies auto safety concerns. Receptive with the plan of risperidone go up to 6 mg in divided dosage for psychosis. Then long-acting injection to follow. He expressed wanted to get Invega Sustenna which is monthly supply so he can be better with medication adherence. 03/11/25: Still has not heard back from his mom. Patient continued to improve in anxiety and psychosis. He does well with risperidone up to 6 mg. However prolactin level elevated 25.9, he is asymptomatic. He is receptive plan that lower risperidone with Abilify 2 mg on brought to help with the level. At this point I do not want to switch him into another antipsychotic as risperidone seems be effective for him. We will hold the long-acting injection planned until further over the weekends. I ordered prolactin level for FridayMarch 14. Patient is receptive to the plan. DC risperidone PRN. Scheduled risperidone down to 5 mg in divided dose. Abilify 2 mg daily at bedtime. We will monitor for any interaction between the 2 antipsychotic medications. No other safety concerns in terms of safety. Case also discussed with Dr. Loya. 03/12: Continue current management and treatment plan. 03/13: Continue current management and treatment plan. 03/14: Active on unit. keeping to self.calm, coopertive. Patient reports feeling okay today. Patient reports he is agreeable to have an ENRIQUE; he is focused on discharge. Prolactin level pending. denies SI/HI/VH/AH. Continue current tx plan. 03/15: Calm, cooperative. Patient reports feeling good ; denies any issues at this time. Prolactin level 28.6 on 03/14/25; denies any pain or discharge from nipples. denies SI/HI/VH/AH. Discussed case with Dr. Loya. 03/16: Patient states that he feels alright. He denies anxiety and depression. He admits to sleeping well. He notes that he has been taking his medications as prescribed and attending groups. He denies SI/HI/AH/VH. He has been doing well on risperidone and therefore will continue current dose. Will increase Abilify to 5 mg daily to counteract prolactin elevation. Will recheck prolactin levels in 3 days. The goal is to get him on long-acting injectable from of Risperidone. Continue current treatment regimen. 03/17: Patient states that he feels good. He has been taking his medications as prescribed and attending groups. He denies anxiety or depression. He denies SI/HI/AH/VH. Prolactin level due to be checked on 03/19; goal is to start him on long-acting form of Risperidone once prolactin level normalized. Continue current treatment regimen. 03/18/2025: No changes. Following prolactin level before making decision around long-acting injectable and plans for same 03/19/2025: Prolactin level ordered for tomorrow Plan Patient on 15 minute checks for safety. Admitted to . CV. He placed on single room due to paranoid thoughts. We will reach out to mom to update mom regarding medication plans. Left voice message awaiting for mom to call back. Has not had get yet hear back from mom. We will potential to offer Invega Sustenna 234 over the weekends if the patient tolerate well with the p.o. risperidone with dose increased. However, due to elevated on prolactin level. Long-acting injection will be held until further. Dose reduce. Abilify 2 mg on board. Prolactin level on 03/14 Work with treatment team to do collateral and referral for aftercare. We reinforced the negative effects on marijuana when he is more clear. He states that he does not want or interested in go back to smoke Patient is medically clear [place] [facility]. unremarkable labs work and EKG is within normal limits. Reason for continued inpatient stay Substantial Risk for: rapid decompensation Time Spent With Patient Time: Total time managing care of this patient today ____ minutes.
[2025-03-19 08:00] VITALS: BP 100/67; PULSE 101; RESP 18; TEMP 36.4; O2SAT 98
[2025-03-19 20:00] VITALS: BP 134/69; PULSE 82; TEMP 36.6; O2SAT 97
[2025-03-20 08:00] VITALS: BP 112/59; PULSE 84; RESP 18; TEMP 36.8; O2SAT 96
--- NOTE | 2025-03-20 11:06 | P.PNPSI_ITS ---
Subjective Subjective Date of Service: 03/20/25 Reason For Visit: Schizophrenia Interim History: Met with patient. Discussed with nursing. Overall medication adherent. Denies depression. Denies feeling paranoid. Sleep okay. Prolcatin drawn today and still pending- aware that treatment team will make a decision regarding long- acting injectable option after prolactin level has been repeated. Medication Compliance: Yes Side effects from medications: No Attending Groups: Intermittent Review of Systems Acute medical concerns: No Review of Systems Review of Systems unremarkable Mental Status Exam Mental Status Exam Narrative: Appearance: Casually dressed, adequate hygiene Behavior: Calm and cooperative throughout the interview. Eye contact is appropriate, and there are no signs of psychomotor agitation or retardation Speech: Normal volume and prosody Thought process: logical and goal-directed Thought content: Future oriented no self-harming thoughts Mood: Good Affect: Constricted SI:denies HI:denies VH/AH:none Delusions: None Insight/judgment: Fair insight and judgment Memory/cog: Alert, oriented x 4. grossly intact to conversational testing Diagnostics Vital Signs (24Hr): Vital Signs - 24 hr 03/19/25 20:00 03/20/25 08:00 Temperature 97.9 F 98.2 F Pulse Rate 82 84 Respiratory Rate 18 Blood Pressure 134/69 112/59 L Pulse Oximetry 97 96 Oxygen Delivery Method Room Air Room Air BMI result Body Mass Index 25.4 Labs 03/03/25 12:43 03/03/25 12:43 Medications Medications Current Medications Acetaminophen (Acetaminophen 325 Mg Tablet) 650 mg PO Q6H PRN PRN Reason: Headache/Pain, Scale 1-10 Last Admin: 03/09/25 03:13 Dose: 650 mg Al Hydroxide/Mg Hydroxide (Magnesium Hydrox/Alum Hydrox 30 Ml Oral.Susp) 30 ml PO Q6H PRN PRN Reason: Heartburn/Nausea Aripiprazole (Aripiprazole 5 Mg Tablet) 5 mg PO BEDTIME SALVATORE Last Admin: 03/19/25 20:42 Dose: 5 mg Guaifenesin (Guaifenesin 200 Mg/10 Ml 10 Ml Liquid) 10 ml PO Q6H PRN PRN Reason: Cough/congestion Last Admin: 03/09/25 22:25 Dose: 10 ml Hydroxyzine HCl (Hydroxyzine Hcl 25 Mg Tablet) 25 mg PO Q6H PRN PRN Reason: mild anxiety Last Admin: 03/14/25 21:09 Dose: 25 mg Lorazepam (Lorazepam 0.5 Mg Tablet) 0.5 mg PO BID SALVATORE Last Admin: 03/20/25 08:21 Dose: 0.5 mg Magnesium Hydroxide (Milk Of Magnesia 30 Ml Oral.Susp) 30 ml PO DAILY PRN PRN Reason: Constipation Nicotine (Nicotine 14 Mg Patch.Td24) 14 mg TRANSDERMA DAILY PRN PRN Reason: Smoking cessation Nicotine Polacrilex (Nicotine Polacrilex 2 Mg Gum) 4 mg BUCCAL Q2H PRN PRN Reason: Nicotine Cravings Last Admin: 03/19/25 13:39 Dose: 4 mg Risperidone (Risperidone 3 Mg Tablet) 3 mg PO BEDTIME SALVATORE Last Admin: 03/19/25 20:42 Dose: 3 mg Risperidone (Risperidone 2 Mg Tablet) 2 mg PO DAILY [facility] Last Admin: 03/20/25 08:21 Dose: 2 mg Sodium Chloride (Sodium Chloride 0.65 % Nasal 44 Ml Sprbtl) 1 spray NOSTRIL-B Q4H PRN PRN Reason: Congestion Last Admin: 03/11/25 12:34 Dose: 1 spray Trazodone HCl (Trazodone Hcl 50 Mg Tablet) 50 mg PO BEDTIME PRN PRN Reason: Insomnia Last Admin: 03/19/25 20:41 Dose: 50 mg Allergies Allergies Allergy/AdvReac Type Severity Reaction Status Date / Time Unable to Assess Allergy Verified 03/03/25 12:25 Assessment & Plan Assessment & Plan (1) Schizophrenia: Qualifiers: Schizophrenia type: unspecified Qualified Code(s): F20.9 - Schizophrenia, unspecified Status: Acute Code(s): F20.9 - Schizophrenia, unspecified (2) Marijuana abuse, continuous: Status: Acute Code(s): F12.10 - Cannabis abuse, uncomplicated Plan Plan: HPI: Patient is a 20 year old assigned male at with a history of schizophrenia presenting to the emergency department today with disorganized behavior. Patient states that he just wants a eastman and someone to fix his hair. Patient's family states that the patient is not taking his medication and has been acting erratically.He was evaluated at his home after his mom called regarding worsening behavior. Stopped taking medication after discharge from on 02/18. Increased marijuana use. -menstruate bizarre behavior at home since past Friday, become more paranoid and thought blocks, rapid decompensation. Increased paranoid behavior. This is 2nd inpatient admission in a very short period of time. (it was here from February 13 to February 18). Increase marijuana use which may contribute to his paranoid thoughts and behavior changes Formulation/clinical reasoning: Family has safety concern regarding the rapid decompensation after stopped taking medication. He was prescribed risperidone 3 mg at bedtime. Not follow-up with outpatient provider for aftercare. Increased marijuana use. The combination of not taking medication and substance use with carrying of schizophrenic diagnosis, lead to rapid decompensate. Increase thought blocks, increased paranoid thoughts, not eating and sleeping well lately. Given above information, he will be benefit in inpatient level of care. We will monitor and restart auto medication with plan to getting long-acting injection on poor. Hospital course: 03/04/25: Restart risperidone 3 mg at bedtime for psychosis. 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 We will wean off table of when symptoms decreased. 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 We will discuss with mom in detail regarding ENRIQUE on risperidone Consta or Uzydi. At this time he wants the shot for once a month. In the meantime we will have him taking risperidone probably increase over the weekend up to 4 mg/day. 03/05: Increase Risperdal to 4 mg HS 03/07: Active on unit. attending groups. Patient reports feeling good ; declined risperidal last night. pt stated, I stopped taking the medication because I'm sleeping better . Pt educated regarding importance of medication compliance. per nursing, pt slept 7 hours last night. denies SI/HI/VH/AH. Continue current tx plan. 03/08/25: Resume care. Encourage patient to take medication consistently as he refused risperidone tonight before last night. He agreed to get risperidone up to 5 mg to target paranoid psychotic symptoms. Also start Ativan 0.5 twice a day with plan to taper him off when he has less thought blocks. Pleasant and cooperative upon approach. No other safety concerns besides being paranoid. Increase risperidone from 4 mg at bedtime to 5 total of mg in divided dose : 2 mg in the morning and 3 mg at bedtime. Start Ativan 0.5 twice a day for catatonic. Plans to taper down on Ativan and offer long-acting injection when target symptoms improve and tolerate to the p.o. medication. 03/09/25: Continued to improve in psychosis symptoms, reports anxiety but deny depression. No ADLs issue shower this morning. Compliant with medication. Nasal congestion interfere with sleep. Other Robitussin for cough or congestion PRN. Call mom INOCENCIO at [phone]. Alee LANIER. Regarding medication plan. Discussed with the pharmacy for potential long-acting injection. Either do Invega Sustenna or risperidone Consta. We do not carry Uzydy ENRIQUE. 03/10/25: Continued to improve in psychosis, thought blocks but improved, having better affect and emotion on his face, smile and joking with staff. Denies any side effects from medications. He has been sleeping good and been eating okay. Some nasal congestion continue. Orders nasal spray and Robitussin for cough congestion PRN. Encouraged to utilize them to help with the symptoms. Not hearing back from mom yet. Per mom when she last spoke to social service manager, she thinks patient is not much improved. However in the past couple of days he has been better with paranoid thoughts. Denies auto safety concerns. Receptive with the plan of risperidone go up to 6 mg in divided dosage for psychosis. Then long-acting injection to follow. He expressed wanted to get Invega Sustenna which is monthly supply so he can be better with medication adherence. 03/11/25: Still has not heard back from his mom. Patient continued to improve in anxiety and psychosis. He does well with risperidone up to 6 mg. However prolactin level elevated 25.9, he is asymptomatic. He is receptive plan that lower risperidone with Abilify 2 mg on brought to help with the level. At this point I do not want to switch him into another antipsychotic as risperidone seems be effective for him. We will hold the long-acting injection planned until further over the weekends. I ordered prolactin level for FridayMarch 14. Patient is receptive to the plan. DC risperidone PRN. Scheduled risperidone down to 5 mg in divided dose. Abilify 2 mg daily at bedtime. We will monitor for any interaction between the 2 antipsychotic medications. No other safety concerns in terms of safety. Case also discussed with Dr. Loya. 03/12: Continue current management and treatment plan. 03/13: Continue current management and treatment plan. 03/14: Active on unit. keeping to self.calm, coopertive. Patient reports feeling okay today. Patient reports he is agreeable to have an ENRIQUE; he is focused on discharge. Prolactin level pending. denies SI/HI/VH/AH. Continue current tx plan. 03/15: Calm, cooperative. Patient reports feeling good ; denies any issues at this time. Prolactin level 28.6 on 03/14/25; denies any pain or discharge from nipples. denies SI/HI/VH/AH. Discussed case with Dr. Loya. 03/16: Patient states that he feels alright. He denies anxiety and depression. He admits to sleeping well. He notes that he has been taking his medications as prescribed and attending groups. He denies SI/HI/AH/VH. He has been doing well on risperidone and therefore will continue current dose. Will increase Abilify to 5 mg daily to counteract prolactin elevation. Will recheck prolactin levels in 3 days. The goal is to get him on long-acting injectable from of Risperidone. Continue current treatment regimen. 03/17: Patient states that he feels good. He has been taking his medications as prescribed and attending groups. He denies anxiety or depression. He denies SI/HI/AH/VH. Prolactin level due to be checked on 03/19; goal is to start him on long-acting form of Risperidone once prolactin level normalized. Continue current treatment regimen. 03/18/2025: No changes. Following prolactin level before making decision around long-acting injectable and plans for same 03/19/2025: Prolactin level ordered for tomorrow 03/20: no changes. PRL result pending Plan Patient on 15 minute checks for safety. Admitted to . CV. He placed on single room due to paranoid thoughts. We will reach out to mom to update mom regarding medication plans. Left voice message awaiting for mom to call back. Has not had get yet hear back from mom. We will potential to offer Invega Sustenna 234 over the weekends if the patient tolerate well with the p.o. risperidone with dose increased. However, due to elevated on prolactin level. Long-acting injection will be held until further. Dose reduce. Abilify 2 mg on board. Prolactin level on 03/14 Work with treatment team to do collateral and referral for aftercare. We reinforced the negative effects on marijuana when he is more clear. He states that he does not want or interested in go back to smoke Patient is medically clear [place] [facility] [place] [facility]. unremarkable labs work and EKG is within normal limits. Reason for continued inpatient stay Substantial Risk for: rapid decompensation Time Spent With Patient Time: Total time managing care of this patient today ____ minutes.
--- NOTE | 2025-03-20 13:49 | PC.NURSE ---
Pt signed 3 day notice up Friday03/23/2025. , BOZENA and CORAL are aware,
[2025-03-20 20:00] VITALS: BP 125/56; PULSE 85; RESP 16; TEMP 36.4; O2SAT 97
[2025-03-21 07:41] VITALS: BP 131/60; PULSE 86; RESP 18; TEMP 36.6; O2SAT 96
[2025-03-21 12:48] LABS: Creatinine Clr Calc Pharmacy 107.7; Estimated Glomerular Filt Rate > 60
[2025-03-21] MEDS: risperiDONE ER 125 MG/0.35 ML SUSER.SYR SUBCUT (14:25)
--- NOTE | 2025-03-21 17:55 | HO.PSYCHPN ---
Subjective Subjective Date of Service: 03/21/25 Reason For Visit: Schizophrenia Interim History: met with pt; discussed with team discussed elevated prolactin; pt agrees w/ continuing tx and getting ENRIQUE Uzedy and to keep taking Abilify. Says will get f/u prolactin lab post discharge...Pt Denies psych symptoms and in good behavioral/impulse control; appropriate w/ peers/staff. Mental Status Exam Mental Status Exam Narrative: Pt is alert and oriented; behavior is cooperative, friendly and calm; patient is not in distress; dressed in casual attire with dreds, adequate hygiene and grooming; mood is described as good and affect congruent; eye contact appropriate; Speech is normal rate, volume and prosody and not pressured; no psychomotor agitation/retardation present; thought process is organized and goal directed; Thought content is on discharge; otherwise pertinent to relevant topics and without any delusional content, paranoid ideations or grandiosity; denies any SI/HI. Denies AVH and there is no evidence of perceptual disturbance. Patients insight and judgment appear intact. Diagnostics Vital Signs (24Hr): Vital Signs - 24 hr 03/20/25 20:00 03/21/25 07:41 Temperature 97.6 F 97.8 F Pulse Rate 85 86 Respiratory Rate 16 18 Blood Pressure 125/56 L 131/60 Pulse Oximetry 97 96 Oxygen Delivery Method Room Air Room Air BMI result Body Mass Index 25.4 Labs 03/03/25 12:43 03/21/25 12:31 Labs: Laboratory Results - last 48 hr 03/20/25 03/21/25 07:33 12:31 Creatinine 1.12 Estim Creat Clear Calc 107.7 Estimated GFR > 60 Prolactin 23.0 H Medications Medications Current Medications Acetaminophen (Acetaminophen 325 Mg Tablet) 650 mg PO Q6H PRN PRN Reason: Headache/Pain, Scale 1-10 Last Admin: 03/09/25 03:13 Dose: 650 mg Al Hydroxide/Mg Hydroxide (Magnesium Hydrox/Alum Hydrox 30 Ml Oral.Susp) 30 ml PO Q6H PRN PRN Reason: Heartburn/Nausea Aripiprazole (Aripiprazole 5 Mg Tablet) 5 mg PO BEDTIME SALVATORE Last Admin: 03/20/25 21:00 Dose: 5 mg Guaifenesin (Guaifenesin 200 Mg/10 Ml 10 Ml Liquid) 10 ml PO Q6H PRN PRN Reason: Cough/congestion Last Admin: 03/09/25 22:25 Dose: 10 ml Hydroxyzine HCl (Hydroxyzine Hcl 25 Mg Tablet) 25 mg PO Q6H PRN PRN Reason: mild anxiety Last Admin: 03/21/25 11:51 Dose: 25 mg Lorazepam (Lorazepam 0.5 Mg Tablet) 0.5 mg PO BID PRN PRN Reason: severe anxiety Magnesium Hydroxide (Milk Of Magnesia 30 Ml Oral.Susp) 30 ml PO DAILY PRN PRN Reason: Constipation Nicotine (Nicotine 14 Mg Patch.Td24) 14 mg TRANSDERMA DAILY PRN PRN Reason: Smoking cessation Nicotine Polacrilex (Nicotine Polacrilex 2 Mg Gum) 4 mg BUCCAL Q2H PRN PRN Reason: Nicotine Cravings Last Admin: 03/20/25 21:21 Dose: 4 mg Risperidone (Risperidone 3 Mg Tablet) 3 mg PO BEDTIME SALVATORE Stop: 03/21/25 23:00 Last Admin: 03/20/25 21:00 Dose: 3 mg Risperidone (Risperidone Er 125 Mg/0.35 Ml Suser.Syr) 125 mg SUBCUT Q30D SALVATORE Last Admin: 03/21/25 14:25 Dose: 125 mg Sodium Chloride (Sodium Chloride 0.65 % Nasal 44 Ml Sprbtl) 1 spray NOSTRIL-B Q4H PRN PRN Reason: Congestion Last Admin: 03/11/25 12:34 Dose: 1 spray Trazodone HCl (Trazodone Hcl 50 Mg Tablet) 50 mg PO BEDTIME PRN PRN Reason: Insomnia Last Admin: 03/20/25 21:00 Dose: 50 mg Allergies Allergies Allergy/AdvReac Type Severity Reaction Status Date / Time Unable to Assess Allergy Verified 03/03/25 12:25 Assessment & Plan Assessment & Plan (1) Schizophrenia: Qualifiers: Schizophrenia type: unspecified Qualified Code(s): F20.9 - Schizophrenia, unspecified Status: Acute Code(s): F20.9 - Schizophrenia, unspecified (2) Marijuana abuse, continuous: Status: Acute Code(s): F12.10 - Cannabis abuse, uncomplicated Plan Plan: HPI: Patient is a 20 year old assigned male at with a history of schizophrenia presenting to the emergency department today with disorganized behavior. Patient states that he just wants a eastman and someone to fix his hair. Patient's family states that the patient is not taking his medication and has been acting erratically.He was evaluated at his home after his mom called regarding worsening behavior. Stopped taking medication after discharge from on 02/18. Increased marijuana use. -menstruate bizarre behavior at home since past Friday, become more paranoid and thought blocks, rapid decompensation. Increased paranoid behavior. This is 2nd inpatient admission in a very short period of time. (it was here from February 13 to February 18). Increase marijuana use which may contribute to his paranoid thoughts and behavior changes Formulation/clinical reasoning: Family has safety concern regarding the rapid decompensation after stopped taking medication. He was prescribed risperidone 3 mg at bedtime. Not follow-up with outpatient provider for aftercare. Increased marijuana use. The combination of not taking medication and substance use with carrying of schizophrenic diagnosis, lead to rapid decompensate. Increase thought blocks, increased paranoid thoughts, not eating and sleeping well lately. Given above information, he will be benefit in inpatient level of care. We will monitor and restart auto medication with plan to getting long-acting injection on poor. Hospital course: 03/04/25: Restart risperidone 3 mg at bedtime for psychosis. 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 We will wean off table of when symptoms decreased. 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 We will discuss with mom in detail regarding ENRIQUE on risperidone Consta or Uzydi. At this time he wants the shot for once a month. In the meantime we will have him taking risperidone probably increase over the weekend up to 4 mg/day. 03/05: Increase Risperdal to 4 mg HS 03/07: Active on unit. attending groups. Patient reports feeling good ; declined risperidal last night. pt stated, I stopped taking the medication because I'm sleeping better . Pt educated regarding importance of medication compliance. per nursing, pt slept 7 hours last night. denies SI/HI/VH/AH. Continue current tx plan. 03/08/25: Resume care. Encourage patient to take medication consistently as he refused risperidone tonight before last night. He agreed to get risperidone up to 5 mg to target paranoid psychotic symptoms. Also start Ativan 0.5 twice a day with plan to taper him off when he has less thought blocks. Pleasant and cooperative upon approach. No other safety concerns besides being paranoid. Increase risperidone from 4 mg at bedtime to 5 total of mg in divided dose : 2 mg in the morning and 3 mg at bedtime. Start Ativan 0.5 twice a day for catatonic. Plans to taper down on Ativan and offer long-acting injection when target symptoms improve and tolerate to the p.o. medication. 03/09/25: Continued to improve in psychosis symptoms, reports anxiety but deny depression. No ADLs issue shower this morning. Compliant with medication. Nasal congestion interfere with sleep. Other Robitussin for cough or congestion PRN. Call mom INOCENCIO at [phone]. Alee . Regarding medication plan. Discussed with the pharmacy for potential long-acting injection. Either do Invega Sustenna or risperidone Consta. We do not carry Uzydy ENRIQUE. 03/10/25: Continued to improve in psychosis, thought blocks but improved, having better affect and emotion on his face, smile and joking with staff. Denies any side effects from medications. He has been sleeping good and been eating okay. Some nasal congestion continue. Orders nasal spray and Robitussin for cough congestion PRN. Encouraged to utilize them to help with the symptoms. Not hearing back from mom yet. Per mom when she last spoke to social insurance administrator, she thinks patient is not much improved. However in the past couple of days he has been better with paranoid thoughts. Denies auto safety concerns. Receptive with the plan of risperidone go up to 6 mg in divided dosage for psychosis. Then long-acting injection to follow. He expressed wanted to get Invega Sustenna which is monthly supply so he can be better with medication adherence. 03/11/25: Still has not heard back from his mom. Patient continued to improve in anxiety and psychosis. He does well with risperidone up to 6 mg. However prolactin level elevated 25.9, he is asymptomatic. He is receptive plan that lower risperidone with Abilify 2 mg on brought to help with the level. At this point I do not want to switch him into another antipsychotic as risperidone seems be effective for him. We will hold the long-acting injection planned until further over the weekends. I ordered prolactin level for FridayMarch 14. Patient is receptive to the plan. DC risperidone PRN. Scheduled risperidone down to 5 mg in divided dose. Abilify 2 mg daily at bedtime. We will monitor for any interaction between the 2 antipsychotic medications. No other safety concerns in terms of safety. Case also discussed with Dr. Loya. 03/12: Continue current management and treatment plan. 03/13: Continue current management and treatment plan. 03/14: Active on unit. keeping to self.calm, coopertive. Patient reports feeling okay today. Patient reports he is agreeable to have an ENRIQUE; he is focused on discharge. Prolactin level pending. denies SI/HI/VH/AH. Continue current tx plan. 03/15: Calm, cooperative. Patient reports feeling good ; denies any issues at this time. Prolactin level 28.6 on 03/14/25; denies any pain or discharge from nipples. denies SI/HI/VH/AH. Discussed case with Dr. Loya. 03/16: Patient states that he feels alright. He denies anxiety and depression. He admits to sleeping well. He notes that he has been taking his medications as prescribed and attending groups. He denies SI/HI/AH/VH. He has been doing well on risperidone and therefore will continue current dose. Will increase Abilify to 5 mg daily to counteract prolactin elevation. Will recheck prolactin levels in 3 days. The goal is to get him on long-acting injectable from of Risperidone. Continue current treatment regimen. 03/17: Patient states that he feels good. He has been taking his medications as prescribed and attending groups. He denies anxiety or depression. He denies SI/HI/AH/VH. Prolactin level due to be checked on 03/19; goal is to start him on long-acting form of Risperidone once prolactin level normalized. Continue current treatment regimen. 03/18/2025: No changes. Following prolactin level before making decision around long-acting injectable and plans for same 03/19/2025: Prolactin level ordered for tomorrow 03/20: no changes. PRL result pending 03/21 discussed (mildly) elevated prolactin; pt agrees w/ continuing tx and getting ENRIQUE Uzedy and to keep taking Abilify. Says will get f/u prolactin lab post discharge...Pt Denies psych symptoms and in good behavioral/impulse control; appropriate w/ peers/staff. Plan Patient on 15 minute checks for safety. Admitted to . [facility]. He placed on single room due to paranoid thoughts. -DC Risperdal PO -Received Uzedy 125mg on 03/21 (qmonth) -continue abilify 5mg to mitigate prolactinemia (checked and mildly elevated 23) We will reach out to mom to update mom regarding medication plans. Left voice message awaiting for mom to call back. Has not had get yet hear back from mom. We will potential to offer Invega Sustenna 234 over the weekends if the patient tolerate well with the p.o. risperidone with dose increased. However, due to elevated on prolactin level. Long-acting injection will be held until further. Dose reduce. Abilify 2 mg on board. Prolactin level on 03/14 Work with treatment team to do collateral and referral for aftercare. We reinforced the negative effects on marijuana when he is more clear. He states that he does not want or interested in go back to smoke Patient is medically clear from [facility]. unremarkable labs work and EKG is within normal limits. Patient educated on: diagnosis, medication risk/benefits and medical condition Informed Consent: understands and further education needed Reason for continued inpatient stay Substantial Risk for: stable for discharge Time Spent With Patient Time: Total time managing care of this patient today ____ minutes.
[2025-03-21 20:00] VITALS: BP 132/72; PULSE 84; RESP 16; TEMP 36.3; O2SAT 98
[2025-03-22 07:58] VITALS: BP 127/58; PULSE 83; TEMP 36.9; O2SAT 96
--- NOTE | 2025-03-22 10:28 | P.PNPSI_ITS ---
Subjective Subjective Date of Service: 03/22/25 Reason For Visit: Schizophrenia Interim History: met with patient; discussed with team Pt remains saying he's good... Denies psychiatric/psychotic symptoms. Discussed last admission and pt said he did not know why he stopped taking meds post discharge, but says now he will continue taking it and asked about his medications. Teacher Ballet inquired and pt said he did not really know what was wrong that he needs medications; technical writer and editor and pt discussed his psychosis and pt said he understood and will thus keep taking medication. Mental Status Exam Mental Status Exam Narrative: Pt is alert and oriented; behavior is cooperative, friendly and calm; patient is not in distress; dressed in casual attire with dreads, adequate hygiene and grooming; mood is described as good and affect congruent; eye contact appropriate; Speech is normal rate, volume and prosody and not pressured; no psychomotor agitation/retardation present; thought process is organized and goal directed; Thought content is on discharge; otherwise pertinent to relevant topics and without any delusional content, paranoid ideations or grandiosity; denies any SI/HI. Denies AVH and there is no evidence of perceptual disturbance. Patients insight and judgment are intact. Diagnostics Vital Signs (24Hr): Vital Signs - 24 hr 03/21/25 20:00 03/22/25 07:58 Temperature 97.4 F 98.4 F Pulse Rate 84 83 Respiratory Rate 16 Blood Pressure 132/72 127/58 L Pulse Oximetry 98 96 Oxygen Delivery Method Room Air Room Air BMI result Body Mass Index 25.4 Labs 03/03/25 12:43 03/21/25 12:31 Labs: Laboratory Results - last 48 hr 03/20/25 03/21/25 07:33 12:31 Creatinine 1.12 Estim Creat Clear Calc 107.7 Estimated GFR > 60 Prolactin 23.0 H Medications Medications Current Medications Acetaminophen (Acetaminophen 325 Mg Tablet) 650 mg PO Q6H PRN PRN Reason: Headache/Pain, Scale 1-10 Last Admin: 03/09/25 03:13 Dose: 650 mg Al Hydroxide/Mg Hydroxide (Magnesium Hydrox/Alum Hydrox 30 Ml Oral.Susp) 30 ml PO Q6H PRN PRN Reason: Heartburn/Nausea Aripiprazole (Aripiprazole 5 Mg Tablet) 5 mg PO BEDTIME SALVATORE Last Admin: 03/21/25 20:45 Dose: 5 mg Guaifenesin (Guaifenesin 200 Mg/10 Ml 10 Ml Liquid) 10 ml PO Q6H PRN PRN Reason: Cough/congestion Last Admin: 03/09/25 22:25 Dose: 10 ml Hydroxyzine HCl (Hydroxyzine Hcl 25 Mg Tablet) 25 mg PO Q6H PRN PRN Reason: mild anxiety Last Admin: 03/21/25 19:04 Dose: 25 mg Lorazepam (Lorazepam 0.5 Mg Tablet) 0.5 mg PO BID PRN PRN Reason: severe anxiety Magnesium Hydroxide (Milk Of Magnesia 30 Ml Oral.Susp) 30 ml PO DAILY PRN PRN Reason: Constipation Nicotine (Nicotine 14 Mg Patch.Td24) 14 mg TRANSDERMA DAILY PRN PRN Reason: Smoking cessation Nicotine Polacrilex (Nicotine Polacrilex 2 Mg Gum) 4 mg BUCCAL Q2H PRN PRN Reason: Nicotine Cravings Last Admin: 03/20/25 21:21 Dose: 4 mg Risperidone (Risperidone Er 125 Mg/0.35 Ml Suser.Syr) 125 mg SUBCUT Q30D SALVATORE Last Admin: 03/21/25 14:25 Dose: 125 mg Sodium Chloride (Sodium Chloride 0.65 % Nasal 44 Ml Sprbtl) 1 spray NOSTRIL-B Q4H PRN PRN Reason: Congestion Last Admin: 03/11/25 12:34 Dose: 1 spray Trazodone HCl (Trazodone Hcl 50 Mg Tablet) 50 mg PO BEDTIME PRN PRN Reason: Insomnia Last Admin: 03/21/25 20:46 Dose: 50 mg Allergies Allergies Allergy/AdvReac Type Severity Reaction Status Date / Time Unable to Assess Allergy Verified 03/03/25 12:25 Assessment & Plan Assessment & Plan (1) Schizophrenia: Qualifiers: Schizophrenia type: unspecified Qualified Code(s): F20.9 - Schizophrenia, unspecified Status: Acute Code(s): F20.9 - Schizophrenia, unspecified (2) Marijuana abuse, continuous: Status: Acute Code(s): F12.10 - Cannabis abuse, uncomplicated Plan Plan: HPI: Patient is a 20 year old assigned male at with a history of schizophrenia presenting to the emergency department today with disorganized behavior. Patient states that he just wants a eastman and someone to fix his hair. Patient's family states that the patient is not taking his medication and has been acting erratically.He was evaluated at his home after his mom called regarding worsening behavior. Stopped taking medication after discharge from on 02/18. Increased marijuana use. -menstruate bizarre behavior at home since past Friday, become more paranoid and thought blocks, rapid decompensation. Increased paranoid behavior. This is 2nd inpatient admission in a very short period of time. (it was here from February 13 to February 18). Increase marijuana use which may contribute to his paranoid thoughts and behavior changes Formulation/clinical reasoning: Family has safety concern regarding the rapid decompensation after stopped taking medication. He was prescribed risperidone 3 mg at bedtime. Not follow-up with outpatient provider for aftercare. Increased marijuana use. The combination of not taking medication and substance use with carrying of schizophrenic diagnosis, lead to rapid decompensate. Increase thought blocks, increased paranoid thoughts, not eating and sleeping well lately. Given above information, he will be benefit in inpatient level of care. We will monitor and restart auto medication with plan to getting long-acting injection on poor. Hospital course: 03/04/25: Restart risperidone 3 mg at bedtime for psychosis. 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 We will wean off table of when symptoms decreased. 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 We will discuss with mom in detail regarding ENRIQUE on risperidone Consta or Uzydi. At this time he wants the shot for once a month. In the meantime we will have him taking risperidone probably increase over the weekend up to 4 mg/day. 03/05: Increase Risperdal to 4 mg HS 03/07: Active on unit. attending groups. Patient reports feeling good ; declined risperidal last night. pt stated, I stopped taking the medication because I'm sleeping better . Pt educated regarding importance of medication compliance. per nursing, pt slept 7 hours last night. denies SI/HI/VH/AH. Continue current tx plan. 03/08/25: Resume care. Encourage patient to take medication consistently as he refused risperidone tonight before last night. He agreed to get risperidone up to 5 mg to target paranoid psychotic symptoms. Also start Ativan 0.5 twice a day with plan to taper him off when he has less thought blocks. Pleasant and cooperative upon approach. No other safety concerns besides being paranoid. Increase risperidone from 4 mg at bedtime to 5 total of mg in divided dose : 2 mg in the morning and 3 mg at bedtime. Start Ativan 0.5 twice a day for catatonic. Plans to taper down on Ativan and offer long-acting injection when target symptoms improve and tolerate to the p.o. medication. 03/09/25: Continued to improve in psychosis symptoms, reports anxiety but deny depression. No ADLs issue shower this morning. Compliant with medication. Nasal congestion interfere with sleep. Other Robitussin for cough or congestion PRN. Call mom INOCENCIO at [phone]. Alee . Regarding medication plan. Discussed with the pharmacy for potential long-acting injection. Either do Invega Sustenna or risperidone Consta. We do not carry Uzydy ENRIQUE. 03/10/25: Continued to improve in psychosis, thought blocks but improved, having better affect and emotion on his face, smile and joking with staff. Denies any side effects from medications. He has been sleeping good and been eating okay. Some nasal congestion continue. Orders nasal spray and Robitussin for cough congestion PRN. Encouraged to utilize them to help with the symptoms. Not hearing back from mom yet. Per mom when she last spoke to social service director, she thinks patient is not much improved. However in the past couple of days he has been better with paranoid thoughts. Denies auto safety concerns. Receptive with the plan of risperidone go up to 6 mg in divided dosage for psychosis. Then long-acting injection to follow. He expressed wanted to get Invega Sustenna which is monthly supply so he can be better with medication adherence. 03/11/25: Still has not heard back from his mom. Patient continued to improve in anxiety and psychosis. He does well with risperidone up to 6 mg. However prolactin level elevated 25.9, he is asymptomatic. He is receptive plan that lower risperidone with Abilify 2 mg on brought to help with the level. At this point I do not want to switch him into another antipsychotic as risperidone seems be effective for him. We will hold the long-acting injection planned until further over the weekends. I ordered prolactin level for FridayMarch 14. Patient is receptive to the plan. DC risperidone PRN. Scheduled risperidone down to 5 mg in divided dose. Abilify 2 mg daily at bedtime. We will monitor for any interaction between the 2 antipsychotic medications. No other safety concerns in terms of safety. Case also discussed with Dr. Loya. 03/12: Continue current management and treatment plan. 03/13: Continue current management and treatment plan. 03/14: Active on unit. keeping to self.calm, coopertive. Patient reports feeling okay today. Patient reports he is agreeable to have an ENRIQUE; he is focused on discharge. Prolactin level pending. denies SI/HI/VH/AH. Continue current tx plan. 03/15: Calm, cooperative. Patient reports feeling good ; denies any issues at this time. Prolactin level 28.6 on 03/14/25; denies any pain or discharge from nipples. denies SI/HI/VH/AH. Discussed case with Dr. Loya. 03/16: Patient states that he feels alright. He denies anxiety and depression. He admits to sleeping well. He notes that he has been taking his medications as prescribed and attending groups. He denies SI/HI/AH/VH. He has been doing well on risperidone and therefore will continue current dose. Will increase Abilify to 5 mg daily to counteract prolactin elevation. Will recheck prolactin levels in 3 days. The goal is to get him on long-acting injectable from of Risperidone. Continue current treatment regimen. 03/17: Patient states that he feels good. He has been taking his medications as prescribed and attending groups. He denies anxiety or depression. He denies SI/HI/AH/VH. Prolactin level due to be checked on 03/19; goal is to start him on long-acting form of Risperidone once prolactin level normalized. Continue current treatment regimen. 03/18/2025: No changes. Following prolactin level before making decision around long-acting injectable and plans for same 03/19/2025: Prolactin level ordered for tomorrow 03/20: no changes. PRL result pending 03/21 discussed (mildly) elevated prolactin; pt agrees w/ continuing tx and getting ENRIQUE Uzedy and to keep taking Abilify. Says will get f/u prolactin lab post discharge...Pt Denies psych symptoms and in good behavioral/impulse control; appropriate w/ peers/staff. 03/22 Pt remains saying he's good... Denies psychiatric/psychotic symptoms. Discussed last admission and pt said he did not know why he stopped taking meds post discharge, but says now he will continue taking it and asked about his medications. Teacher Ballet inquired and pt said he did not really know what was wrong that he needs medications; technical writer and editor and pt discussed his psychosis and pt said he understood and will thus keep taking medication. -pt remains stable; in good behavioral/impulse control and appropriate with peers/staff. Three day coming due and pt not in imminent risk of harm to self or others and appropriate to return to community for tx. Plan Patient on 15 minute checks for safety. Admitted to [facility]. CV. He placed on single room due to paranoid thoughts. -DC Risperdal PO -Received Uzedy 125mg on 03/21 (qmonth) -continue abilify 5mg to mitigate prolactinemia (checked and mildly elevated 23) We will reach out to mom to update mom regarding medication plans. Left voice message awaiting for mom to call back. Has not had get yet hear back from mom. We will potential to offer Invega Sustenna 234 over the weekends if the patient tolerate well with the p.o. risperidone with dose increased. However, due to elevated on prolactin level. Long-acting injection will be held until further. Dose reduce. Abilify 2 mg on board. Prolactin level on 03/14 Work with treatment team to do collateral and referral for aftercare. We reinforced the negative effects on marijuana when he is more clear. He states that he does not want or interested in go back to smoke Patient is [place] clear [place] [facility]. unremarkable labs work and EKG is within normal limits. Patient educated on: diagnosis and medication risk/benefits Informed Consent: understands Reason for continued inpatient stay Substantial Risk for: stable for discharge Time Spent With Patient Time: Total time managing care of this patient today ____ minutes.
[2025-03-22 20:00] VITALS: BP 134/66; PULSE 88; RESP 18; TEMP 36.7; O2SAT 94
[2025-03-23 08:00] VITALS: BP 111/60; PULSE 82; RESP 16; TEMP 36.9; O2SAT 98
--- NOTE | 2025-03-23 08:33 | P.DS_ITS ---
DS: Providers Provider Date of Service: 03/23/25 Date of admission: 03/03/25 14:15 Date of discharge: 03/23/25 Primary care physician: Unknown Physician Admitting clinician: Yanira Candelaria Attending physician on discharge: Douglas Paul DS: Diagnosis Discharge Diagnosis (1) Schizophrenia: Status: Acute (2) Marijuana abuse, continuous: Status: Acute DS: Medications Discharge Medications Home Medications: Previous Rx's ?Medication ?Instructions ?Recorded risperidone 3 mg tablet 3 mg PO BEDTIME 30 days #30 tabs 02/18/25 trazodone 50 mg tablet 50 mg PO BEDTIME PRN Insomni a 30 02/18/25 days #30 tabs Mental Status Exam Mental Status Exam Narrative: Pt is alert and oriented; behavior is cooperative, friendly and calm; patient is not in distress; dressed in casual attire with dreads, adequate hygiene and grooming; mood is described as good and affect congruent; eye contact appropriate; Speech is normal rate, volume and prosody and not pressured; no psychomotor agitation/retardation present; thought process is organized and goal directed; Thought content is on discharge; otherwise pertinent to relevant topics and without any delusional content, paranoid ideations or grandiosity; denies any SI/HI. Denies AVH and there is no evidence of perceptual disturbance. Patients insight and judgment are intact. Data Data Completed and Pending Completed studies during hospitalization [Text1]: 03/20/25 03/21/25 07:33 12:31 Creatinine 1.12 Estim Creat Clear Calc 107.7 Estimated GFR > 60 Prolactin 23.0 H DS: Summary Hospital Course Hospital Course: HPI: Patient is a 20 year old assigned male at with a history of schizophrenia presenting to the emergency department today with disorganized behavior. Patient states that he just wants a eastman and someone to fix his hair. Patient's family states that the patient is not taking his medication and has been acting erratically.He was evaluated at his home after his mom called regarding worsening behavior. Stopped taking medication after discharge from on 02/18. Increased marijuana use. -menstruate bizarre behavior at home since past Friday, become more paranoid and thought blocks, rapid decompensation. I ncreased paranoid behavior. This is 2nd inpatient admission in a very short period of time. (it was here from February 13 to February 18). Increase marijuana use which may contribute to his paranoid thoughts and behavior changes Formulation/clinical reasoning: Family has safety concern regarding the rapid decompensation after stopped taking medication. He was prescribed risperidone 3 mg at bedtime. Not follow-up with outpatient provider for aftercare. Increased marijuana use. The combination of not taking medication and substance use with carrying of schizophrenic diagnosis, lead to rapid decompensate. Increase thought blocks, increased paranoid thoughts, not eating and sleeping well lately. Given above information, he will be benefit in inpatient level of care. We will monitor and restart auto medication with plan to getting long- acting injection on poor. Hospital course: 03/04/25: On admission patient was with psychotic symptoms, some mild catatonic symptoms as well. Patient amenable to restarting Risperdal which was helpful in the past. Patient improved some and became more social and active on the unit, attending groups. Patient however refused risperidone at night. Patient educated on need for medication which he seemed to agree however he intermittently would refuse it feeling it interfered with sleep. He agreed however to have it switched to daytime and eventually in divided doses. Patient remained with some catatonic symptoms which eventually resolved with low-dose Ativan. Over subsequent days, psychotic symptoms continue to wane and thought blocking improved and patient became more naturally expressive; paranoid ideations also improved and eventually resolved. Patient agreed to get on long- acting injectable. Patient seemed to do best with Risperdal dose 6 mg however it was found he had mildly increased prolactin level, though asymptomatic. Risperdal was lowered some and Abilify started; prolactin level decreased a little bit. This medication side effect was discussed with patient who understood and agreed to continue taking Risperdal and Abilify and get on long- acting injectable of Risperdal. Patient was in good behavioral and impulse control and appropriate with peers and staff on the unit. Sleeping well and denying psychiatric symptoms.He received long acting injectable Uzedy 125 mg and agreed to get follow-up prolactin level in the community. Again discussed patient's diagnosis and need for medications which he said he understood and that he would continue taking medications as prescribed. Patient placed a 3 day notice , feeling ready to return home. Patient has supportive family in the community and outpatient providers set up. Pt remains stable; in good behavioral/impulse control and appropriate with peers/staff. His Three day coming due and pt not in imminent risk of harm to self or others and appropriate to return to community for tx. Patient's request for discharge honored. Medication Received Uzedy 125mg on 03/21 (qmonth) abilify 5mg daily Time spent discussing smoking cessation with patient: 3 to 10 minutes Status at Discharge Functional status at discharge: independent ambulation Overall status at discharge: patient is back to baseline Time Spent with Patient Time attestation: Total time managing care of this patient today _40___ minutes. Time spent: Greater than 30 minutes Specific discharge activities: 40 Discharge Plan Discharge Anticipated Discharge Date/Time: 03/23/25 11:30 Patient Disposition: Home, Self-Care Discharge Diagnosis: Schizophrenia Referrals: [facility] [Other] - 1 Week Referral Note: fax [phone] DARIA will be reaching out and likely start on 03/24/25 [facility] [place] [place] [Other] - 1 Week Referral Note: You have been referred for outpatient therapy and psychiatric services through [facility] [place] Appointments were not provided by agency prior to discharge. storage worker and agency will reach out to you with your appointments. Physician,Unknown J [Primary Care Provider, Medical] - 1 Week Discharge Medications: New nicotine (polacrilex) 4 mg gum 4 mg buccal Q2H PRN (Reason: nicotine cravings) 30 Days Qty: 100 0RF aripiprazole [Abilify] 5 mg Tablet 5 mg PO BEDTIME 30 Days Qty: 30 0RF hydroxyzine HCl 25 mg Tablet 25 mg PO Q6H PRN (Reason: mild anxiety) 30 Days Qty: 90 0RF Uzedy 125 mg/0.35 mL Suspension,Extended Rel Syring 125 mg subcut Q30D 30 Days Qty: 0.35 0RF Rx Instructions: last dose received on 03/21/25 Continued trazodone 50 mg Tablet 50 mg PO BEDTIME PRN (Reason: Insomnia) 30 Days Qty: 30 0RF Discontinued risperidone 3 mg Tablet 3 mg PO BEDTIME 30 Days Qty: 30 1RF Discharge Orders: Discharge Order (Routine); Ordered 03/23/25 Ordered By: Douglas Paul Diet: Regular diet Activity on Discharge: As tolerated Stand Alone Forms: Patient Portal Discharge page Print Language: Telugu Care Plan Goals: Maintain mood and safe behaviors Take medications as prescribed Continue to pursue sobriety from cannabis Practice coping skills Continue with outpatient providers and reach out to them as needed Health Concerns: Mood stability and behaviors Sobriety from cannabis Plan of Treatment: Follow up with your PCP, psychiatric provider and other outpatient providers regarding above concerns Take medications as prescribed Assessment: Risk assessment at time of discharge:? Patient was interviewed prior to discharge and found to be fully oriented and without any SI or HI. Patient has improved insight and judgment and wants to continue treatment. Patient is not in imminent risk of harm to self or others and has a safety plan that includes presenting to the closest ER or calling 911 if feeling unsafe.? Patient has been observed closely by nursing and unit staff throughout admission; patient has not engaged in any behaviors that suggest dangerousness to self or others and has demonstrated appropriate behaviors and impulse control Discharge Date/Time: 03/23/25 11:30
== END 2025-03-23 11:30 | disposition home or self-care (01) | DRG 750 ==
LOC: HO.ED 15:35 → HO.PM5 15:58
PROVIDERS: Nurse Practitioner Psychiatric/Mental Health; Physician Assistant Medical; Psychiatry & Neurology Psychiatry; Admitting Provider Clinical Nurse Specialist Psychiatric/Mental Health, Adult; Emergency Provider Emergency Medicine; Visit Provider Psychiatry & Neurology Psychiatry
DX: F20.9 Schizophrenia, unspecified (principal); F12.10 Cannabis abuse, uncomplicated; Z79.899 Other long term (current) drug therapy
CPT/HCPCS: 36415; 80053; 80143; 80179; 80307; 81001; 82565; 84146; 85025; 93005; 99285; J2799

== ENCOUNTER → 2025-03-03 12:34 | Outpatient (BNV) | payer OTHER, SELFPAY | PROVIDERS: Admitting Provider Clinical Nurse Specialist Psychiatric/Mental Health, Adult; Emergency Provider Emergency Medicine; Visit Provider Internal Medicine Cardiovascular Disease | DX: R94.31 Abnormal electrocardiogram [ECG] [EKG] (principal); Z13.6 Encounter for screening for cardiovascular disorders | CPT/HCPCS: 93010 ==

== ENCOUNTER → 2025-03-03 14:15 | Outpatient (BNV) | payer OTHER, SELFPAY | PROVIDERS: Admitting Provider Clinical Nurse Specialist Psychiatric/Mental Health, Adult; Emergency Provider Emergency Medicine; Visit Provider Clinical Nurse Specialist Psychiatric/Mental Health, Adult | DX: F20.9 Schizophrenia, unspecified (principal); F12.10 Cannabis abuse, uncomplicated | CPT/HCPCS: 99231 ==

== ENCOUNTER 2025-04-26 10:50 | Outpatient (REF) | payer OTHER, SELFPAY ==
[2025-04-26 11:09] LABS: MANUAL DIFF FLAG NO
[2025-04-26 11:47] LABS: Hematocrit 46.9 % (42.0-52.0); Hemoglobin 15.6 g/dl (14.0-18.0); Imm Gran Abs Auto 0.01 X10*3/uL (0.00-0.03); Imm Gran Pct Auto 0.2 % (0.0-0.4); Lymphocytes Absolute Auto 2.2 X10*3/uL (1.2-4.9); Mean Corpuscular HGB Conc 33.3 g/dl (31.0-36.0); Mean Corpuscular Hemoglobin 29.3 pg (27.0-33.0); Mean Corpuscular Volume 88.2 fL (80.0-98.0); NRBC Abs Auto 0.000 X10*3/uL (0.0-0.012); NRBC Pct Auto 0.0 /100WBC (0.0-0.2); Platelet Count 228 X10*3/uL (160-400); Red Blood Count 5.32 X10*6/uL (4.60-5.80); White Blood Count 5.0 X10*3/uL (4.8-10.8)
--- OUTSIDE RECORDS SUMMARY | 2025-04-26 11:57 | XMS_ITS ---
Author Name [facility] Organization Unknown Care Team Organization Name Specialty Phone Email Start Date End Da te [facility] SMILEY [facility] 01/20/2023 05/03/2024 [facility] 11/20/2022
--- OUTSIDE RECORDS SUMMARY | 2025-04-26 11:57 | XMS_ITS | Clinical Summary ---
Author Organization [facility] [address] [place] [address] [place] [address] Phone Care Team Providers Care Reclamation Engineer Name Role Phone Lino Gar MD Primary Care Provider Allergies No known active allergies Medications risperiDONE (RisperDAL) 3 mg tablet Take 1 tablet (3 mg total) by mouth at bedtime. at bedtime for 30 days 02/18/2025 Active Active Problems Problem Noted Date Diagnosed Date Known medical problems 10/02/2022 Encounters Date Type Department Care Team Description 04/11/2025 Telephone Adult Medicine [address] [phone] Beth Yee MA Home Health Certifcation (03/24/25 - 05/22/25) 04/11/2025 Telephone Adult Medicine [address] [phone] Lino Gar MD [facility] Follow[facility] 03/24/2025 Telephone Adult Medicine [address] [phone] Lino Gar MD vna 03/23/2025 Telephone Adult Medicine [address], [place] [phone] Yolie CabralMATILDE VNA 02/25/2025 2:00 PM EDT Office Visit Adult Medicine [address] [phone] Lino Gar MD Hospital discharge follow-up (Primary Dx); Schizophrenia, unspecified type (CMS/HCC V24, CMS/HCC V28); Behavior problem 02/21/2025 Telephone Adult Medicine [address] [phone] Lino Gar MD Hospital Follow-up from Last 3 Months Immunizations Name Administration Dates Next Due DTaP / Hib 2004,2004,2004 [id number] (Pediarix) 6 w ks to less than 7yo 2004,2004,2004,2003 Hepatitis B Pediatric (Enger ix B; Recombivax HB) to less than 20 yo 2004,2004,2004 Influenza Quadravalent, MDCK , 0.5ml, preservative free (Flucelvax) 6mo and older 10/02/2022 Measles 2004 OPV 2004, 4,2004,2003 Pfizer (ages 12 & older) Biv alenasreen, COVID-19 05/29/2022 Yellow Fever (YF-VAX) 9mo and older 10/01/2021 Social History Tobacco Use Types Packs/Day Years [...] on file Sexual Orientation Not on file Obstetrics History Last Filed Vital Signs Vital Sign Reading [...] Mass Index 24.07 02/25/2025 1:57 PM EDT Plan of Treatment Health Maintenance Due Date Last Done Comments Hepatitis B Vaccines (4 of 4 - 4-dose series) 2004 2004, 2004, 2004, Additional history exists IPV Vaccines (3 of 3 - 4-dose series) 2008 2004, 2004, 2004, Additional history exists HPV Vaccines (1 - Male 3-dose series) 02/03/2019 Meningococcal B Vaccine (1 of 2 - Standard) 2020 Annual Well Child Visit (3-21 years old) 10/10/2023 10/02/2022 HIV Screening 10/10/2023 Hepatitis C Screening 10/10/2023 Social Influencers of Health Screening 10/10/2023 Depression Screening 09/15/2024 Influenza Vaccine (#1) 2025 07/23/2024, 2022 DTaP,Tdap,and Td Vaccines (4 - Td or Tdap) 07/23/2034 07/23/2024, 2004, 2004, Additional history exists HIB Vaccines Aged Out 2004, 03/16, 2004 No longer eligible based on patient's age to complete this topic COVID-19 Vaccine Completed 08/10/2024, 05/29/2022 Meningococcal ACWY Vaccine Aged Out 09/29/2024 N o longer eligible based on patient's age to complete this topic Hepatitis A Vaccines Aged Out No long er eligible based on patient's age to complete this topic MMR Vaccines Aged Out No longer eligi ble based on patient's age to complete this topic Pneumococcal Vaccine: Pediatrics (0 to 5 Years) and At-Risk Patients (6 to 49 Years) Aged Out No longer eligible based on patient's age to complete this topic RSV Immunization Patients Under 20 months Aged Out No longer eligible based on patient's age to complete this topic Varicella Vaccines Aged Out No longer eligible based on patient's age to complete this topic Insurance [facility] Care Teams Reclamation Engineer Relationship Specialty Start Date End Date Lino Gar MD [address] [place] [address] PCP - General 09/25/22
[2025-04-26 12:10] LABS: Alanine Aminotransferase 47 U/L (0-40); Albumin Level 4.7 g/dL (3.5-5.0); Alkaline Phosphatase 74 U/L (39-117); Anion Gap 13 (12-20); Aspartate Amino Transferase 30 U/L (5-37); Blood Urea Nitrogen 18 mg/dL (9-16); Calcium 9.4 mg/dL (8.4-10.2); Carbon Dioxide 26 mmol/L (22-29); Chloride 105 mmol/L (96-108); Cholesterol 170 mg/dL (<200); Estimated Glomerular Filt Rate > 60; HDL Cholesterol 40 mg/dL (>40); Potassium 4.1 mmol/L (3.3-5.1); Sodium 140 mmol/L (135-145); Total Protein 7.9 g/dL (6.5-8.0); Triglycerides 69 mg/dL (<150)
[2025-04-26 17:13] LABS: Cannabinoid Screen Urine Not Detected (Not Detect)
--- OUTSIDE RECORDS SUMMARY | 2025-05-21 20:00 | XMS_ITS | Clinical Summary ---
Author Organization Unknown Care Team Providers Care Machine Cementer Name Role Phone EDMUNDO DE LA ROSA, SMILEY ARAIZA Unavailable Denice GIBSON RN, RICK Unavailable Unavailable Payers Payer Name Policy Type Policy Number Effective Date Expira tion Date [facility] ([facility] [id number] [place] [id number] Problems Condition Name Condition Details Condition Category Status Onset Date Resolution Date Last Treatment Date Treating Clinician Comments SCHIZOPHRENI A, UNSPECIFIED Active 03-03 00:00: 00 CANNABIS ABUSE, UNCOMPLICATE D Active 03-24 00:00: 00 Allergies, Adverse Reactions, Alerts Allergy Name Allergy Type Status Severity Reaction(s) Onset Date Inactive Date Treating Clinician Comments NKA Propensity to adverse reactions Active 2025-03 10:37:1 7 Medications Ordered Medication Name Filled Medication Name Start Date Stop Date Current Medication? Ordering Clinician Indication Dosage Frequency Signature (SIG) Comments Components Abilify 5 mg tablet 03-24 00:00: 00 Yes [id number] 1 tablet BEDTIME 1 tablet BEDTIME (route: oral) Med Classific ation: Central Nervous System Agents hydroxyzine HCl 25 mg tablet 03-24 00:00: 00 Yes [id number] 1 tablet EVERY 6 HOURS 1 tablet EVERY 6 HOURS (route: oral) Med Classific ation: Central Nervous System Agents Nicorette 4 mg gum 03-24 00:00: 00 Yes [id number] 1 mg EVERY 2 HOURS 1 mg EVERY 2 HOURS (route: buccal) Med Classific ation: Chemical Dependenc y, Agents to Treat trazodone 50 mg tablet 03-24 00:00: 00 Yes [id number] 1 tablet BEDTIME 1 tablet BEDTIME (route: oral) Med Classific ation: Central Nervous System Agents Uzedy 125 mg/0.35 mL subcut ext rel suspension syringe 03-24 00:00: 00 Yes [id number] 125 mg MONTHLY 125 mg MONTHLY (route: subcutaneo us) Med Classific ation: Central Nervous System Agents Vital Signs Vital Name Observation Time Observation Value Commen ts Temperature 2025-04-13 09:41:00.000 97.3 [degF] Temperature 2025-03-24 09:06:00.000 97.7 [degF] Height 2025-03-24 09:06:00.000 69 [in_us] Pulse 2025-03-24 09:06:00.000 97 /min O2 Saturation (%) 2025-04-13 09:41:00.000 98 % O2 Saturation (%) 2025-03-24 09:07:00.000 97 % Respirations 2025-04-13 09:41:00.000 16 /min Respirations 2025-03-24 09:06:00.000 16 /min Systolic Blood Pressure 2025-04-13 09:41:00.000 129 mm [Hg] Systolic Blood Pressure 2025-03-24 09:06:00.000 141 mm [Hg] Diastolic Blood Pressure 2025-04-13 09:41:00.000 73 mm [Hg] Diastolic Blood Pressure 2025-03-24 09:06:00.000 74 mm [Hg] Plan of Treatment Planned Activity Planned Date Details Comments Future Scheduled Test SKILLED NU RSE TO EVALUATE PATIENT, IDENTIFY PRIMARY AND CO-MORBID CONDITIONS CODED PER CODING GUIDELINES, AND DEVELOP PATIENT SPECIFIC PLAN OF CARE THAT INCLUDES PATIENT GOAL FOR HOME HEALTH. [code = SKILLED NURSE TO EVALUATE PATIENT, IDENTIFY PRIMARY AND CO-MORBID CONDITIONS CODED PER CODING GUIDELINES, AND DEVELOP PATIENT SPECIFIC PLAN OF CARE THAT INCLUDES PATIENT GOAL FOR HOME HEALTH.] Future Scheduled Test PATIENT MA Y HAVE ONE SET OF EMERGENCY MEDICATION NOT TO BE PRE-POURED ANY SOONER THAN 24 HOURS BEFORE SEVERE INCLEMENT WEATHER OR EMERGENT EVENT AND FOLLOWING SKILLED NURSE EVALUATION OF PATIENT SAFETY. [code = PATIENT MAY HAVE ONE SET OF EMERGENCY MEDICATION NOT TO BE PRE-POURED ANY SOONER THAN 24 HOURS BEFORE SEVERE INCLEMENT WEATHER OR EMERGENT EVENT AND FOLLOWING SKILLED NURSE EVALUATION OF PATIENT SAFETY.] Future Scheduled Test SKILLED NU RSE TO O/A OF PATIENTS MENTAL/BEHAVIORAL STATUS, ASSESS VITAL SIGNS WEEKLY, ALLOW 2 PRNS FOR MEDICATION MANAGEMENT. [code = SKILLED NURSE TO O/A OF PATIENTS MENTAL/BEHAVIORAL STATUS, ASSESS VITAL SIGNS WEEKLY, ALLOW 2 PRNS FOR MEDICATION MANAGEMENT.] Future Scheduled Test SKILLED NU RSE FOR O/A OF PATIENT'S RISK FOR VIOLENCE TOWARD SELF OR OTHERS AND TO PROVIDE INTERVENTION TECHNIQUES TO PROMOTE SAFETY TO PATIENT AND OTHERS [code = SKILLED NURSE FOR O/A OF PATIENT'S RISK FOR VIOLENCE TOWARD SELF OR OTHERS AND TO PROVIDE INTERVENTION TECHNIQUES TO PROMOTE SAFETY TO PATIENT AND OTHERS] Future Scheduled Test SKILLED NU RSE FOR O/A OF ALTERED THOUGHT PROCESS AND/OR DISRUPTION IN COGNITIVE OPERATIONS AND ACTIVITIES [code = SKILLED NURSE FOR O/A OF ALTERED THOUGHT PROCESS AND/OR DISRUPTION IN COGNITIVE OPERATIONS AND ACTIVITIES ] Future Scheduled Test MEDICATION S WILL BE HELD AND STORED IN LOCKBOX [code = MEDICATIONS WILL BE HELD AND STORED IN LOCKBOX] Future Scheduled Test SKILLED NU RSE FOR O/A OF GENERAL HEALTH STATUS OF PAIN, CARDIAC, RESPIRATORY, GASTROINTESTINAL, GENITOURINARY, SKIN, NEUROLOGIC, ENDOCRINE SYSTEMS TO IDENTIFY CHANGES ASSOCIATED WITH EXACERBATION FOR EARLY INTERVENTION OF COMPLICATIONS [code = SKILLED NURSE FOR O/A OF GENERAL HEALTH STATUS OF PAIN, CARDIAC, RESPIRATORY, GASTROINTESTINAL, GENITOURINARY, SKIN, NEUROLOGIC, ENDOCRINE SYSTEMS TO IDENTIFY CHANGES ASSOCIATED WITH EXACERBATION FOR EARLY INTERVENTION OF COMPLICATIONS ] Future Scheduled Test SKILLED NU RSE TO ADMINISTER MEDICATIONS 5 X WEEKLY AND PRE-POUR MEDICATIONS 5 X WEEKLY PER MEDICATION LIST. [code = SKILLED NURSE TO ADMINISTER MEDICATIONS 5 X WEEKLY AND PRE-POUR MEDICATIONS 5 X WEEKLY PER MEDICATION LIST.] Future Scheduled Test SKILLED NU RSE FOR O/A AND SKILLED TEACHING RELATED TO MANAGEMENT OF DEPRESSIVE SYMPTOMS AND/OR DEPRESSION. SN TO REPORT SIGNIFICANT CHANGE IN DEPRESSIVE SYMPTOMS TO CLINICAL PROVIDER FOR EARLY INTERVENTION. [code = SKILLED NURSE FOR O/A AND SKILLED TEACHING RELATED TO MANAGEMENT OF DEPRESSIVE SYMPTOMS AND/OR DEPRESSION. SN TO REPORT SIGNIFICANT CHANGE IN DEPRESSIVE SYMPTOMS TO CLINICAL PROVIDER FOR EARLY INTERVENTION.] Future Scheduled Test SKILLED NU RSE TO PERFORM HOME SAFETY AND FALL ASSESSMENT AND PROVIDE INSTRUCTION TO IMPLEMENT HOME SAFETY AND FALL PREVENTION STRATEGIES. [code = SKILLED NURSE TO PERFORM HOME SAFETY AND FALL ASSESSMENT AND PROVIDE INSTRUCTION TO IMPLEMENT HOME SAFETY AND FALL PREVENTION STRATEGIES.] Future Scheduled Test SKILLED NU RSE FOR OBSERVATION AND ASSESSMENT OF PATIENTS PAIN LEVEL AND EFFECTIVENESS OF PAIN MANAGEMENT REGIMEN. SKILLED NURSE TO INSTRUCT PATIENT/CAREGIVER REGARDING PHARMACOLOGIC AND NON-PHARMACOLOGIC PAIN CONTROL MEASURES. SKILLED NURSE TO REPORT TO PHYSICIAN IF PAIN IS UNCONTROLLED WITH CURRENT PAIN MANAGEMENT REGIMEN. [code = SKILLED NURSE FOR OBSERVATION AND ASSESSMENT OF PATIENTS PAIN LEVEL AND EFFECTIVENESS OF PAIN MANAGEMENT REGIMEN. SKILLED NURSE TO INSTRUCT PATIENT/CAREGIVER REGARDING PHARMACOLOGIC AND NON-PHARMACOLOGIC PAIN CONTROL MEASURES. SKILLED NURSE TO REPORT TO PHYSICIAN IF PAIN IS UNCONTROLLED WITH CURRENT PAIN MANAGEMENT REGIMEN.] Future Scheduled Test PATIENT TOLBERT S A RISK OF HOSPITALIZATION AND ED USE. SKILLED NURSE TO ESTABLISH SUPPORT MEASURES TO MINIMIZE RISK OF HOSPITALIZATION AND ED USE, AND INSTRUCT PATIENT/CAREGIVER ON METHODS TO REDUCE AVOIDABLE HOSPITALIZATION AND ED USE. [code = PATIENT HAS A RISK OF HOSPITALIZATION AND ED USE. SKILLED NURSE TO ESTABLISH SUPPORT MEASURES TO MINIMIZE RISK OF HOSPITALIZATION AND ED USE, AND INSTRUCT PATIENT/CAREGIVER ON METHODS TO REDUCE AVOIDABLE HOSPITALIZATION AND ED USE.] Future Scheduled Test SKILLED NU RSE TO REVIEW PATIENT MEDICATIONS. INSTRUCT PATIENT/CAREGIVER ON MONITORING OF EFFECTIVENESS, ADVERSE DRUG REACTIONS, SIDE EFFECTS OF ALL MEDICATIONS (PRESCRIPTION/-OTC), AND HOW AND WHEN TO REPORT PROBLEMS. [code = SKILLED NURSE TO REVIEW PATIENT MEDICATIONS. INSTRUCT PATIENT/CAREGIVER ON MONITORING OF EFFECTIVENESS, ADVERSE DRUG REACTIONS, SIDE EFFECTS OF ALL MEDICATIONS (PRESCRIPTION/-OTC), AND HOW AND WHEN TO REPORT PROBLEMS.] Future Scheduled Test SKILLED NU RSE FOR ADMINISTRATION AND TEACHING OF PRESCRIBED INJECTION THERAPY FOR RISPERIDONE (UDEZY) 125 MG SUBCUT Q30 DAYS [code = SKILLED NURSE FOR ADMINISTRATION AND TEACHING OF PRESCRIBED INJECTION THERAPY FOR RISPERIDONE (UDEZY) 125 MG SUBCUT Q30 DAYS ] Future Scheduled Test SKILLED NU RSE FOR O/A OF CLIENT'S SLEEP PATTERNS. MAY TEACH INTERVENTIONS R/T ACQUIRING IMPROVED REST [code = SKILLED NURSE FOR O/A OF CLIENT'S SLEEP PATTERNS. MAY TEACH INTERVENTIONS R/T ACQUIRING IMPROVED REST] Future Scheduled Test SKILLED NU RSE FOR O/A OF CLIENT'S SOCIAL ISOLATION AND PROVIDE ASSISTANCE TO CLIENT IN DEVELOPMENT OF PLANNED ACTIVITIES [code = SKILLED NURSE FOR O/A OF CLIENT'S SOCIAL ISOLATION AND PROVIDE ASSISTANCE TO CLIENT IN DEVELOPMENT OF PLANNED ACTIVITIES] Future Scheduled Test SKILLED NU RSE TO ASSESS PATIENTS PSYCHOSOCIAL STATUS TO IDENTIFY POTENTIAL ISSUES THAT MAY COMPLICATE THE PROVISION OF THE PLAN OF CARE INCLUDING THE PATIENTS ABILITY TO ACCESS COMMUNITY RESOURCES AND PSYCHOSOCIAL SUPPORT SERVICES. [code = SKILLED NURSE TO ASSESS PATIENTS PSYCHOSOCIAL STATUS TO IDENTIFY POTENTIAL ISSUES THAT MAY COMPLICATE THE PROVISION OF THE PLAN OF CARE INCLUDING THE PATIENTS ABILITY TO ACCESS COMMUNITY RESOURCES AND PSYCHOSOCIAL SUPPORT SERVICES.] Future Scheduled Test SKILLED NU RSE TO ASSESS HIGH RISK PATIENT FOR CHANGE IN CONDITION: MOOD/BEHAVIOR, MISSED MEDICATIONS, CHANGE IN LIVING SITUATION, HOMICIDAL IDEATION, ACTIVE SUBSTANCE USE WITH MOOD ALTERING SUBSTANCES INCLUDING BUT NOT LIMITED TO COCAINE, CRACK, HEROIN, FENTANYL AND ENSURE EARLY IDENTIFICATION TO MAINTAIN SAFETY. SKILLED NURSE WILL MAINTAIN SITUATIONAL AWARENESS FOR SAFETY AND WILL NOTIFY CLINICAL PRESS TENDER STAR SIGNAL AND PHYSICIAN/PROVIDER WITH ANY CHANGE IN CONDITION. [code = SKILLED NURSE TO ASSESS HIGH RISK PATIENT FOR CHANGE IN CONDITION: MOOD/BEHAVIOR, MISSED MEDICATIONS, CHANGE IN LIVING SITUATION, HOMICIDAL IDEATION, ACTIVE SUBSTANCE USE WITH MOOD ALTERING SUBSTANCES INCLUDING BUT NOT LIMITED TO COCAINE, CRACK, HEROIN, FENTANYL AND ENSURE EARLY IDENTIFICATION TO MAINTAIN SAFETY. SKILLED NURSE WILL MAINTAIN SITUATIONAL AWARENESS FOR SAFETY AND WILL NOTIFY CLINICAL PRESS TENDER STAR SIGNAL AND PHYSICIAN/PROVIDER WITH ANY CHANGE IN CONDITION.] Future Scheduled Test SKILLED NU RSE WILL MAINTAIN SITUATIONAL AWARENESS FOR SAFETY AND WILL NOTIFY CLINICAL PRESS TENDER STAR SIGNAL AND PHYSICIAN/PROVIDER WITH ANY CHANGE IN CONDITION. [code = SKILLED NURSE WILL MAINTAIN SITUATIONAL AWARENESS FOR SAFETY AND WILL NOTIFY CLINICAL PRESS TENDER STAR SIGNAL AND PHYSICIAN/PROVIDER WITH ANY CHANGE IN CONDITION.] Goal Patient Goal - W ORK ON MYSELF AND GET BACK TO WORK Goal Provider Goal - A PLAN OF CARE WILL BE ESTABLISHED THAT MEETS PATIENT'S RETIREMENT NEEDS AND INCLUDES PATIENT GOAL FOR HOME HEALTH. Goal Provider Goal - MEDICATION WILL BE AVAILABLE DURING INCLEMENT WEATHER OR EMERGENT EVENT THROUGHOUT CERTIFICATION PERIOD. Goal Provider Goal - ALTERED MENTAL/BEHAVIORAL STATUS WILL BE IDENTIFIED PROMPTLY AND INTERVENTION INITIATED QUICKLY TO MINIMIZE ASSOCIATED RISKS THROUGHOUT CERTIFICATION PERIOD. Goal Provider Goal - PATIENT WILL REMAIN SAFE IN COMMUNITY WITHOUT EVIDENCE OF INJURY/HARM TO SELF OR OTHERS THROUGHOUT CERTIFICATION PERIOD. Goal Provider Goal - PATIENT WILL BE ABLE TO PERFORM DAILY FUNCTIONS AND HAVE OPTIMAL IMPROVEMENT IN THOUGHT PROCESS THROUGHOUT CERTIFICATION PERIOD. Goal Provider Goal - MEDICATION WILL BE STORED IN LOCKBOX FOR SAFETY. Goal Provider Goal - CHANGE IN GENERAL HEALTH STATUS WILL BE IDENTIFIED AND REPORTED TO PHYSICIAN FOR PROMPT INTERVENTION TO MINIMIZE ASSOCIATED RISKS THROUGHOUT CERTIFICATION PERIOD. Goal Provider Goal - PATIENT WILL COMPLY WITH MEDICATION WHEN SKILLED NURSE ADMINISTERS AND PRE-POURS MEDICATION THROUGHOUT CERTIFICATION PERIOD. Goal Provider Goal - PATIENT WILL REMAIN SAFE WITHOUT DECOMPENSATION IN DEPRESSIVE CONDITION, WHILE MAINTAINING OPTIMAL LEVEL OF MENTAL HEALTH AND WELL BEING THROUGHOUT CERTIFICATION PERIOD. Goal Provider Goal - PATIENT/CAREGIVER WILL VERBALIZE/DEMONSTRATE EFFECTIVE HOME SAFETY AND FALL PREVENTION STRATEGIES THROUGHOUT CERTIFICATION PERIOD. Goal Provider Goal - PATIENT/CAREGIVER WILL DEMONSTRATE UNDERSTANDING OF PHARMACOLOGIC AND NONPHARMACOLOGIC PAIN CONTROL MEASURES AND PATIENT WILL HAVE IMPROVEMENT IN PAIN INTERFERING WITH ACTIVITY EVIDENCED BY PAIN AT A LEVEL THAT IS ACCEPTABLE TO THE PATIENT AND PAIN LEVEL WITHIN ESTABLISHED PARAMETERS BY END OF CERTIFICATION PERIOD. Goal Provider Goal - PATIENT WILL HAVE SUPPORT MEASURES ESTABLISHED TO PREVENT HOSPITALIZATION AND ED USE AND PATIENT/CAREGIVER WILL VERBALIZE/DEMONSTRATE METHODS TO REDUCE AVOIDABLE HOSPITALIZATION AND ED USE BY END OF EPISODE. Goal Provider Goal - PATIENT/CAREGIVER WILL VERBALIZE UNDERSTANDING OF EDUCATION PROVIDED ON MEDICATIONS BY THE END OF THE CERTIFICATION PERIOD. Goal Provider Goal - PATIENT WILL RECEIVE RISPERIDONE (UDEZY) 125 MG SUBCUTANEOUS Q30 DAYS ORDERED. PATIENT/CAREGIVER WILL VERBALIZE/DEMONSTRATE KNOWLEDGE OF INJECTION THERAPY BY THE END OF THE CERTIFICATION PERIOD. Goal Provider Goal - PATIENT WILL REPORT AT LEAST 6-8 HOURS A NIGHT, RESTFUL SLEEP PATTERNS ACHIEVED USING THERAPEUTIC INTERVENTIONS BEFORE THE END OF THE CERTIFICATION PERIOD. Goal Provider Goal - PATIENT WILL DEMONSTRATE AN INCREASED INTEREST IN SOCIALIZATION AND ACTIVITIES BY THE END OF THE CERTIFICATION PERIOD. Goal Provider Goal - PSYCHOSOCIAL NEEDS WILL BE IDENTIFIED AND PLAN IMPLEMENTED TO MINIMIZE RISK THROUGHOUT CERTIFICATION PERIOD. Goal Provider Goal - HIGH SAFETY RISK PATIENT WILL REMAIN SAFE IN THE COMMUNITY AND WILL BE FREE FROM DANGER TO SELF AND OTHERS THROUGHOUT CERTIFICATION PERIOD. Goal Provider Goal - PATIENT WILL REMAIN SAFE IN THE COMMUNITY AND WILL BE FREE OF DANGER TO SELF AND OTHERS THROUGHOUT THE CERTIFICATION PERIOD. Encounters Start Date/Time End Date/Time Encounter Type Admission Type Attending [facility] Care Department Encounter ID Discharge Date Discharge Status Discharge Condition Discharge Reason Percent Goals Met 2025-03-24 00:00:00 2025-05-22 00:00:00 Outpatient NEW ADMISSION RICK GIBSON [facility] [id number]
== END 2025-04-26 10:51 | disposition home or self-care (01) ==
LOC: HO.LAB 10:50
PROVIDERS: Visit Provider Nurse Practitioner Psychiatric/Mental Health
DX: Z79.899 Other long term (current) drug therapy (principal)
CPT/HCPCS: 80053; 80061; 80307; 84146; 85025